=== PATIENT | female | born 1950 | race Caucasian/White ===

== ENCOUNTER → 2017-12-14 09:30 | Outpatient (CLI) | payer MEDICARE, OTHER, SELFPAY ==
[2017-12-14 10:37] LABS: AST(SGOT) 13 U/L (15-37); Alanine Aminotransfer ALT/SGPT 22 U/L (13-56); Albumin, Serum 3.5 g/dL (3.2-5.0); Alkaline Phosphatase 94 U/L (45-117); Anion Gap 7 (5-15); BUN 12 mg/dL (7-18); BUN/Creat Ratio 14.5 RATIO (10-20); Bilirubin, Direct 0.12 mg/dL (0.00-0.30); Calcium,Total 8.7 mg/dL (8.5-10.1); Chloride 107 mmol/L (98-107); Cholesterol 212 mg/dL (200); Creatinine, Serum 0.83 mg/dL (0.55-1.02); EST Glomerular Filtration Rate 73 mL/min (>60); Est Glom Filt Rate - Afr Amer 88 mL/min (>60); Glucose 94 mg/dL (74-106); High Density Lipoprotein 48 mg/dL; Potassium 4.3 mmol/L (3.5-5.1); Protein, Total 8.5 g/dL (6.4-8.2); Sodium Level 142 mmol/L (136-145); Thyroid Stim Hormone (TSH) 0.74 uIU/mL (0.358-3.74); Triglycerides 108 mg/dL; Very Low Density Lipoprotein 22 mg/dL (5-40)
== END ==
PROVIDERS: Family Provider Internal Medicine; PCP Internal Medicine; Visit Provider Physician Assistant Medical
DX: E78.5 Hyperlipidemia, unspecified (principal); Z79.899 Other long term (current) drug therapy; E03.9 Hypothyroidism, unspecified; R25.2 Cramp and spasm
CPT/HCPCS: 36415; 80048; 80061; 80076; 83735; 84443

== ENCOUNTER 2018-03-31 05:49 | Day surgery (SDC) | payer MEDICARE, OTHER, SELFPAY ==
--- NOTE | 2018-03-26 14:06 | EKG12_ITS ---
Test Reason : PRE OP Blood Pressure : / mmHG Vent. Rate : 082 BPM Atrial Rate : 082 BPM P-R Int : 174 ms QRS Dur : 060 ms QT Int : 378 ms P-R-T Axes : 061 022 024 degrees QTc Int : 441 ms Normal sinus rhythm Normal ECG Confirmed by TREASURE OVERTON, BALJIT ([id number]), supervising editor trailer FIDELINA BROWN ([id number]) on 03/28/2018 2:07:53 PM Referred By: Hubert Pena Confirmed By:BALJIT AMANDA MD
[2018-03-26 14:27] LABS: Hematocrit 38.5 % (37-47); Hemoglobin 12.9 g/dl (12.0-15.0); Mean Corp Hgb Conc 33.5 g/gl (32-36); Mean Corpuscular Hgb 29.2 pg (27.0-32.0); Mean Corpuscular Volume 87.1 fL (81-99); Mean Platelet Vol. 9.1 fl (6.2-12.0); Platelet Count 253 K/mm3 (150-450); RBC Distribution Width CV 13.1 % (11.6-14.6); RBC Distribution Width SD 40.8 fl (35.1-43.9); Red Blood Count 4.42 M/mm3 (4.2-5.4); Scan Indicated on CBC? Y/N NO; White Blood Count 4.2 K/mm3 (4.4-11.0)
[2018-03-26 14:36] LABS: International Normalized Ratio 1.1; Prothrombin Time (Protime)PT. 13.9 SECONDS (11.7-14.9)
[2018-03-26 14:37] LABS: Partial Thromboplast Time 25.2 Seconds (24.1-36.2)
[2018-03-26 15:02] LABS: ALB/GLOB Ratio 0.8 RATIO (0.9-2.4); AST(SGOT) 14 U/L (15-37); Alanine Aminotransfer ALT/SGPT 28 U/L (13-56); Albumin, Serum 3.5 g/dL (3.2-5.0); Alkaline Phosphatase 101 U/L (45-117); Anion Gap 4 (5-15); BUN 12 mg/dL (7-18); BUN/Creat Ratio 15.7 RATIO (10-20); Calcium,Total 8.7 mg/dL (8.5-10.1); Chloride 106 mmol/L (98-107); Creatinine, Serum 0.76 mg/dL (0.55-1.02); EST Glomerular Filtration Rate 80 mL/min (>60); Est Glom Filt Rate - Afr Amer 97 mL/min (>60); Globulin 4.6 g/dL (2.2-4.2); Glucose 116 mg/dL (74-106); Potassium 3.8 mmol/L (3.5-5.1); Protein, Total 8.1 g/dL (6.4-8.2); Sodium Level 142 mmol/L (136-145); Thyroid Stim Hormone (TSH) 0.91 uIU/mL (0.358-3.74)
--- NOTE | 2018-03-30 18:09 | PCM.HP.BLA ---
History and Physical Date of Admission: 03/31/18 Surgical History and Physical Ana Lilia Forrester, a 67 year old female 1 2 0 0 3, presents for A and P repair on March 31, 2018 at 7:30. -- Vaginal Prolapse -- pt is a 67 yo New Patient to the office. Pt is G-3 P-3 here today as a referral from TRISTAN Robles- due to prolapse. Pt states she had a hysterectomy / MMK back in 1989 . States for last 2 years she has had prolapse of bladder again that is progressively getting worse. States has a bulge in vaginal Pain and pressure in lower back. Prolapsed bladder which began 2 years ago. Ana Lilia claims it started progressively getting worse and has been present 2 years. It is located in the vagina. Ana Lilia characterizes it to be back. It is aggravated by walking on beach. Additional comments are: premarin cream holland and she stopped it 6-8 months ago. MEDICATIONS HISTORY: Current medications prescribed by our practice are: 1. estradiol 0.5 mg tablet, One half pill per vagina once a day qhs Patient is also takin. levothyroxine 125 mcg tablet, 1 PO QD 2. lorazepam 0.5 mg tablet, PRN 3. Nasonex 50 mcg/actuation Hammond, PRN 4. Nexium 20 mg capsule,delayed release, 1 PO QD 5. Norvasc 5 mg tablet, 1 PO QD 6. nystatin 100,000 unit/gram topical powder, PRN 7. Premarin 0.625 mg/gram vaginal cream, As Directed 8. Skelaxin 800 mg tablet, PRN 9. Toprol XL 25 mg tablet,extended release, 1 PO QD ALLERGIES: Ditropan, Rash, IVP Dye, Iodine Containing, Rash, Neoprene, Rash, Penicillins, Rash, Pravachol, Rash, Quinine, Rash, Vicoprofen, Rash, Vioxx, Rash, Zetia, Rash, Zocor, Rash, Vioxx, Heart failure, Vioxx and Rash Infections - Chicken pox Illnesses - thyroid disease, heart attack, high cholesterol, hypertension Accidents - None Hospitalizations - see surgery Review of Systems: GENERAL - Denies fever, or chills SKIN - Denies skin changes EYES - Denies visual changes EARS - Denies difficulty hearing NOSE - Denies nasal congestion or bleeding MOUTH - Denies sore throat or difficulty swallowing NECK - Denies pain or swelling RESPIRATORY - Denies shortness of breath or wheezing CARDIOVASCULAR - Denies palpitations or chest pain GASTROINTESTINAL - Denies nausea, vomiting, diarrhea, constipation GENITOURINARY - Denies dysuria, frequency of urination, incontinence of urine MUSCULOSKELETAL - Denies joint or muscle pain NEUROLOGICAL - Denies localized numbness or weakness PSYCHIATRIC - Denies depression or anxiety ENDOCRINE - Denies heat or cold intolerance, weight loss or gain HEMATO-IMMUNOLOGIC - Denies excesive bleeding with cuts SOCIAL HISTORY: Alcohol Use - denies drinking Smoking - denies smoking Diet - no special diet Lifestyle - moderate stress lifestyle and Exercise - active Seat Belt Use - always 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 11/11/1989 Hysterectomy ; Dr. Carias - 2. 11/11/1977 tuballigation ; - 3. foot surery ; - 4. knee surgery ; - 5. tonsillectomy ; - PHYSICAL EXAM BP- 132/84 Sitting, Right arm, regular cuff Weight- 200.10802 lbs Height- 64 inch BMI:34.40 CONSTITUTIONAL - NAD, well nourished, and well developed SKIN - No rash, lesions, or ulcers HEENT - Normocephalic, PERRLA, EOMI NECK - No nodes, no nuchal rigidity and thyroid normal size and texture LYMPH NODES - Palpation of lymph nodes in neck and groins within normal limits LUNGS - CTA x2 without wheezes, crackles or rales CARDIAC - Regular rate and rhythm without rubs, murmurs, or gallops ABDOMEN - Without hepatosplenomegaly, distention, masses, rebound, or guarding; normal bowel sounds; no hernias EXTREMITIES - No edema or calf tenderness NEUROLOGICAL - Cranial nerves II-XII grossly intact PSYCHIATRIC - A and O to time, place, person, mood and affect External Genitial Vagina - non-tender without lesions Urethra/Urethral Meatus - non-tender Bladder - non-tender Vagina - loss of rugae, large cystocele, mild rectocele and possible anterior enterocele Cervix - Prior hysterectomy-well healed vaginal cuff Uterus - prior hysterectomy-absent Adnexa - clear without massess or tenderness ASSESSMENT/PLAN: 1. Cystocele Midline and Enterocele Likely secondary to stopping intravaginal HRT. Discuss options for teatment of this very symptomatic problem and she declines pessary use. Will proceed with AP Repair. Discussed RBAs and all questions answered.
[2018-03-31] VITALS (11 sets, daily range): BP systolic 99–129; BP diastolic 53–74; PULSE 58–86; RESP 16–18; TEMP 35.9–37.2; O2SAT 93–100; BMI 33.2
--- NOTE | 2018-03-31 07:30 | VAGMU_PTH ---
PATIENT: NADER AGUILA LOC: [facility] [place] U#:[id number] AGE/SX: 67/F ROOM: RE03/31/[address]: Dr. Hubert Pena MD : 1950 BED: DIS: 04/01/2018 SPEC #: [id number] RECD: 03/31/18 10:29 STATUS: NURIA RAUL #: [id number] MARCO ANTONIO: 03/31/18 07:[address]: Hubert Pena DEPT: SURGICAL PATHOLOGY RECD BY: Reji Olmstead ENTERED: 03/31/18 12:44 SP TYPE: VAG MUCOSA OTHR DR: Dr. Joi Gonzalez MD Tissues: Vagina, NOS Procedures: Surgery Specimen Level III HEADER OPERATION: Anterior posterior repair PRE-OP DIAGNOSIS: Cystocele, enterocele TISSUE SUBMITTED: Vaginal mucosa MICROSCOPIC DIAGNOSIS Vaginal mucosa: Fragments of squamous mucosa, clinically anterior and posterior repair. SJ:heather 04/01/18 MICROSCOPIC DESCRIPTION Slides are reviewed. GROSS DESCRIPTION Received in fixative is one container labeled with the patient's name and designated vaginal mucosa. The specimen consists of five variable sized pieces of atkinson mucosal tissue that in aggregate measure 6 x 5 x 1 cm. No mucosal lesion is identified. Multiple instrumentation hughes are noted. Global Creative Chairman sections are submitted in one cassette. / SJ:rg 03/31/18 TC:5 CPT: 88682
--- NOTE | 2018-03-31 09:06 | PCM.OP.BLANK ---
Operative Report Date of Procedure: 03/31/18 Surgeon: Hubert Pena MD, FACOG Deportation Examiner: JONY López Anesthesia: Jann Weiner CRNA Type of anesthesia: General endotracheal Procedure: AP repair Findings: Cystocele and enterocele which protruded to the introitus. Rectocele which protruded to the introitus after anterior repair. Evidence of prior transvaginal tape placement. Indications: This is a 67-year-old patient who is been having problems with prolapse symptoms. Conservative measures have not been helpful. Given this the patient desires that we proceed the above procedure. She has been counseled regarding the risk and indications of this procedure including the possibility of bleeding, infection, and injury to surrounding structures such as bowel bladder. All questions were answered. Procedure: Patient was taken to the operating room where after induction of general anesthesia she was placed in the dorsal lithotomy position and prepped and draped in the usual sterile fashion. The bladder was drained of approximately 50 cc of clear yellow urine and Sanz catheter left in place. Anterior vaginal mucosa was undermined and divided and then imbricated toward the midline with interrupted 0 Vicryl sutures. Vaginal mucosa was trimmed and then closed with interrupted 2-0 chromic suture. Vaginal cuff was then closed side to side with interrupted [id number] 0 Vicryl suture. Hemostasis was noted. Attention was turned toward the posterior repair portion of the procedure. Remnants of the hymenal ring were grasped with Allises and a V-shaped incision was made in the perineum. Rectovaginal mucosa was then undermined divided and then imbricated toward the midline with interrupted 0 Vicryl suture. Vaginal mucosa was trimmed and then closed with running locked 2-0 chromic suture. Remnants of the bulbocavernosus muscles were identified and brought toward the midline with a single [id number]-[id number] 0 Vicryl suture and perineum was closed in the usual fashion with running and subcuticular, and voipls-tu-[id number] 2-0 chromic suture. Hemostasis was noted. Clear yellow urine was noted. Vagina was packed with iodoform tape. Patient tolerated the procedure well was taken to recovery room in satisfactory condition; sponge instrument and needle counts were all reportedly correct. Estimated blood loss for the case was less than 100 cc. Cefotan 2 g IV was given prior to beginning the operative procedure. There were no apparent complications of the surgery. Specimen to pathology was uterus and vaginal mucosa.
--- NOTE | 2018-03-31 09:10 | OP.PCM_ITS ---
Operative Report Date of Procedure: 03/31/18 Surgeon: Hubert Pena MD, FACOG Freelance Data Entry: JONY López Anesthesia: Jann Weiner CRNA Type of anesthesia: General endotracheal Procedure: AP repair Findings: Cystocele and enterocele which protruded to the introitus. Rectocele which protruded to the introitus after anterior repair. Evidence of prior transvaginal tape placement. Indications: This is a 67-year-old patient who is been having problems with prolapse symptoms. Conservative measures have not been helpful. Given this the patient desires that we proceed the above procedure. She has been counseled regarding the risk and indications of this procedure including the possibility of bleeding, infection, and injury to surrounding structures such as bowel bladder. All questions were answered. Procedure: Patient was taken to the operating room where after induction of general anesthesia she was placed in the dorsal lithotomy position and prepped and draped in the usual sterile fashion. The bladder was drained of approximately 50 cc of clear yellow urine and Sanz catheter left in place. Anterior vaginal mucosa was undermined and divided and then imbricated toward the midline with interrupted 0 Vicryl sutures. Vaginal mucosa was trimmed and then closed with interrupted 2-0 chromic suture. Vaginal cuff was then closed side to side with interrupted [id number] 0 Vicryl suture. Hemostasis was noted. Attention was turned toward the posterior repair portion of the procedure. Remnants of the hymenal ring were grasped with Allises and a V-shaped incision was made in the perineum. Rectovaginal mucosa was then undermined divided and then imbricated toward the midline with interrupted 0 Vicryl suture. Vaginal mucosa was trimmed and then closed with running locked 2-0 chromic suture. Remnants of the bulbocavernosus muscles were identified and brought toward the midline with a single lcarxq-qz-aasmm 0 Vicryl suture and perineum was closed in the usual fashion with running and subcuticular, and [id number]-[id number] 2-0 chromic suture. Hemostasis was noted. Clear yellow urine was noted. Vagina was packed with iodoform tape. Patient tolerated the procedure well was taken to recovery room in satisfactory condition; sponge instrument and needle counts were all reportedly correct. Estimated blood loss for the case was less than 100 cc. Cefotan 2 g IV was given prior to beginning the operative procedure. There were no apparent complications of the surgery. Specimen to pathology was uterus and vaginal mucosa.
--- NOTE | 2018-03-31 09:11 | PCM.DC.VHY ---
Discharge Diet: No Restrictions Discharge Activity: Return to Normal Activity, May Not Drive - while taking narcotic pain medications., May Shower, May Not Shower, May Take a Tub Bath May resume sexual activity in: 6-8 weeks Call your doctor if your incision/area has: Continuous Slow Oozing, Sudden Increased Bleeding, Increased Pain/ Swelling, Increased Redness, Foul Smelling Discharge Call your doctor if you observe: Fever of 101 or Higher, Inability to urinate, Inability to have a bowel movement, Using more than one pad per hour Allergies/Adverse Reactions: Allergies Iodinated Contrast- Oral and IV Dye [Iodinated Contrast Media - IV Dye] Allergy (Verified 12/26/17 14:52) Other Penicillins Allergy (Verified 12/26/17 14:52) Hives quinine Allergy (Verified 12/26/17 14:52) Other acetaminophen [From Vicodin] Adverse Reaction (Verified 12/26/17 14:52) Nausea/Vom/Diarrhea ezetimibe [From Zetia] Adverse Reaction (Verified 12/26/17 14:52) Other hydrocodone bitartrate [From Vicodin] Adverse Reaction (Verified 12/26/17 14:52) Nausea/Vom/Diarrhea oxybutynin chloride [From Ditropan] Adverse Reaction (Verified 12/26/17 14:52) Other pravastatin sodium [From Pravachol] Adverse Reaction (Verified 12/26/17 14:52) Pain in joints rofecoxib [From Vioxx] Adverse Reaction (Verified 12/26/17 14:52) Other simvastatin [From Zocor] Adverse Reaction (Verified 12/26/17 14:52) Other NEOPRENE Allergy (Uncoded 05/03/17 23:34) Rash statins Adverse Reaction (Severe, Uncoded 12/24/17 10:19) Muscle aches, increased CK benadryl Adverse Reaction (Intermediate, Uncoded 12/24/17 10:19) Anxious Medications to take at Discharge Amlodipine [Norvasc] 5 mg PO QHS 04/26/16 Aspirin [Aspirin, Baby] 81 mg PO QHS 04/26/16 Ergocalciferol [Vitamin D] 50,000 unit PO SUWE 04/26/16 Esomeprazole Mag Trihydrate [Nexium] 20 mg PO DAILY 04/26/16 Folic Acid 2 mg PO DAILY@0800 04/26/16 Levothyroxine Sodium [Levoxyl] 75 mcg PO 1200 04/26/16 Metoprolol(XL)Succ [Toprol Xl (Beta Joel)] 25 mg PO QHS 04/26/16 Mometasone Furoate [Nasonex] 2 spray NASAL DAILY PRN 04/26/16 Multivitamin [Daily Multiple Vitamin] 1 each PO DAILY 04/26/16 P-Ephed HCl/Fexofenadine HCl [Sangeetha-D 24 Hour Tablet] 1 tab.sr PO DAILY 04/26/16 colestipol 1 gram tablet 2 g PO BID #360 tab 03/18/18 Estradiol 0.5 mg VAGINAL QHS 03/26/18 Docusate Sodium [Colace] 100 mg PO BID PRN PRN #60 cap 03/31/18 Oxycodone [Oxyir] 5 mg PO Q6H PRN PRN 7 Days #10 tab 03/31/18 The following prescriptions were given: Oxycodone [Oxyir] 5 mg PO Q6H PRN PRN 7 Days #10 tab PRN Reason: Severe Pain (-08/20) Docusate Sodium [Colace] 100 mg PO BID PRN PRN #60 cap PRN Reason: Constipation Primary Care Physician: Joi Gonzalez MD [Primary Care Provider] - Please Follow Up With: Hubert Pena MD When: 2-3 weeks
[2018-03-31] MEDS: Ketorolac 15 MG/ML Vial IV (09:38)
[2018-03-31] MEDS: HYDROmorphone 0.5 MG/0.5 ML SYRINGE IV ×4 (10:50→23:29)
[2018-03-31] MEDS: Dextrose 5%-Lactated Ringers 1,000 ML 125 ML IV ×2 (10:50→18:33)
[2018-03-31] MEDS: Levothyroxine 75 MCG Tablet PO (12:32)
[2018-03-31] MEDS: Loratadine 10 MG Tablet PO (12:32)
[2018-03-31] MEDS: Acetaminophen 500 MG Tablet 1000 MG PO ×2 (14:04→21:31)
[2018-03-31] MEDS: Enoxaparin 30 MG/0.3 ML Syringe SC (18:24)
[2018-03-31] MEDS: Aspirin 81 MG TAB.CHEW PO (21:32)
[2018-03-31] MEDS: amLODIPine 5 MG Tablet PO (21:32)
[2018-03-31] MEDS: Estradiol 0.5 MG Tablet PO (21:33)
[2018-03-31] MEDS: Metoprolol(XL)Succ 25 MG Tablet PO (21:35)
[2018-04-01 01:50] VITALS: BP 135/69; PULSE 78; RESP 16; TEMP 36.9; O2SAT 97
[2018-04-01 05:58] LABS: Hematocrit 36.7 % (37-47); Hemoglobin 12.1 g/dl (12.0-15.0); Mean Corpuscular Hgb 28.3 pg (27.0-32.0); Mean Corpuscular Volume 85.9 fL (81-99); Platelet Count 231 K/mm3 (150-450); RBC Distribution Width CV 13.1 % (11.6-14.6); RBC Distribution Width SD 41.1 fl (35.1-43.9); Red Blood Count 4.27 M/mm3 (4.2-5.4); White Blood Count 6.8 K/mm3 (4.4-11.0)
[2018-04-01 06:01] LABS: Scan Indicated on CBC? Y/N NO
[2018-04-01] MEDS: Acetaminophen 500 MG Tablet 1000 MG PO (06:01)
[2018-04-01 06:10] LABS: Creatinine, Serum 0.62 mg/dL (0.55-1.02); EST Glomerular Filtration Rate 101 mL/min (>60); Est Glom Filt Rate - Afr Amer 122 mL/min (>60); Estimated Creatinine Clearance 49.12 ml/min
[2018-04-01 07:00] VITALS: RESP 18
[2018-04-01 07:46] VITALS: BP 123/55; PULSE 75; RESP 18; TEMP 36.9; O2SAT 97
[2018-04-01 08:42] VITALS: O2SAT 97
--- NOTE | 2018-04-01 08:48 | PCM.PN.OB ---
Subjective: Patient without complaints. Tolerating diet well. Positive flatus. Able to void on own. - Physical Exam Vital Signs AF, VSS Temp Pulse Resp BP Pulse Ox 98.5 F 75 18 123/55 H 97 04/01/18 07:46 04/01/18 07:46 04/01/18 07:46 04/01/18 07:46 04/01/18 08:42 Oxygen Flow Rate (L/min) 1 Oxygen Delivery Method Room Air Weight: 199 lb 8.293 oz Body Mass Index (BMI) 33.2 Intake and Output for Last 24 Hours 03/30/18 03/31/18 04/01/18 23:59 23:59 23:59 Intake Total 4050 / 4050 1191 / 1191 Output Total 1100 / 1100 850 / 850 Balance 2950 / 2950 341 / 341 Laboratory Tests Past 24 Hrs 04/01/18 04/01/18 05:20 05:20 WBC 6.8 RBC 4.27 Hgb 12.1 Hct 36.7 L MCV 85.9 MCH 28.3 MCHC 33.0 RDW 13.1 RDW Differential 41.1 Plt Count 231 MPV 9.0 Creatinine 0.62 Estim Creat Clear Calc 49.12 Est GFR (MDRD) Af Amer 122 Est GFR (MDRD) Non-Af 101 Vaginal pack out and minimal bleeding noted. Hemoglobin and creatinine okay. Medical Necessity - Tobacco Use Smoking Status: Never smoker Assessment/Plan Doing well. Will release to home with routine instructions.
[2018-04-01] MEDS: Pantoprazole Sodium 20 MG Tablet PO (08:58)
[2018-04-01 10:23] VITALS: BP 116/62; PULSE 81; RESP 16; TEMP 37.2; O2SAT 98
== END 2018-04-01 10:35 | disposition home or self-care (01) ==
LOC: SDC 05:50 → AC 05:51 → MS2 10:10
PROVIDERS: Family Provider Internal Medicine; PCP Internal Medicine; Visit Provider Obstetrics & Gynecology
PROC: (CPT 57260; principal; 2018-03-31 07:15)
DX: N81.3 Complete uterovaginal prolapse (principal); I25.10 Atherosclerotic heart disease of native coronary artery without angina pectoris; I25.2 Old myocardial infarction; I10 Essential (primary) hypertension; E78.00 Pure hypercholesterolemia, unspecified; G47.30 Sleep apnea, unspecified; K21.9 Gastro-esophageal reflux disease without esophagitis; K58.9 Irritable bowel syndrome, unspecified; F32.9 Major depressive disorder, single episode, unspecified; F41.9 Anxiety disorder, unspecified; E06.9 Thyroiditis, unspecified; Z90.710 Acquired absence of both cervix and uterus; Z86.718 Personal history of other venous thrombosis and embolism; Z79.01 Long term (current) use of anticoagulants; Z79.82 Long term (current) use of aspirin; Z79.899 Other long term (current) drug therapy
CPT/HCPCS: 00942; 57260; 36415; 80053; 82565; 84443; 85027; 85610; 85730; 86850; 86900; 88304; 93005; J7120

== ENCOUNTER → 2018-04-30 10:07 | Outpatient (CLI) | payer MEDICARE, OTHER, SELFPAY ==
[2018-04-30 10:37] LABS: Absolute Lymphocyte Count 1.42 X10^3/ul (0.83-4.51); Absolute Neutrophil Count 2.4 X10^3/uL (2.0-7.7); Basophil# 0.03 X10^3/uL; Basophil% 0.6 % (0-1); Eosinophil# 0.18 X10^3/uL; Eosinophils% 3.9 % (0-5); Hemoglobin 12.8 g/dl (12.0-15.0); Lymphocyte # 1.42 X10^3/ul (4.0); Lymphocyte % 30.6 % (19-41); Mean Corp Hgb Conc 32.8 g/gl (32-36); Mean Corpuscular Hgb 28.3 pg (27.0-32.0); Mean Corpuscular Volume 86.3 fL (81-99); Monocyte# 0.58 X10^3/uL; Monocyte% 12.5 % (0-10); Neutrophil # 2.42 X10^3/uL (2.7-7.7); Neutrophil % 52.2 % (47-70); Platelet Count 230 K/mm3 (150-450); RBC Distribution Width CV 13.4 % (11.6-14.6); RBC Distribution Width SD 41.9 fl (35.1-43.9); Red Blood Count 4.52 M/mm3 (4.2-5.4); White Blood Count 4.6 K/mm3 (4.4-11.0)
[2018-04-30 10:38] LABS: Erythrocyte Sedimentation Rate 9 mm/hr (0-30); POSITIVE COUNT NO; POSITIVE DIFFERENTIAL NO; POSITIVE MORPHOLOGY NO
[2018-04-30 10:56] LABS: CRP 8.11 mg/L (0.0-3.0)
== END ==
PROVIDERS: Family Provider Internal Medicine; PCP Internal Medicine; Visit Provider Orthopaedic Surgery
DX: M71.21 Synovial cyst of popliteal space [Baker], right knee (principal); Z79.899 Other long term (current) drug therapy
CPT/HCPCS: 36415; 85025; 85652; 86140

== ENCOUNTER 2018-06-04 11:36 | Inpatient (IN) | payer MEDICARE, OTHER, SELFPAY ==
[2018-05-23 11:43] VITALS: BP 122/73; PULSE 84; RESP 16; TEMP 37.6; O2SAT 95; BMI 34.1
[2018-05-23 13:41] LABS: Absolute Lymphocyte Count 1.58 X10^3/ul (0.83-4.51); Absolute Neutrophil Count 2.7 X10^3/uL (2.0-7.7); Basophil# 0.02 X10^3/uL; Basophil% 0.4 % (0-1); Eosinophil# 0.15 X10^3/uL; Hematocrit 40.1 % (37-47); Hemoglobin 13.1 g/dl (12.0-15.0); Lymphocyte # 1.58 X10^3/ul (4.0); Lymphocyte % 31.9 % (19-41); Mean Corp Hgb Conc 32.7 g/gl (32-36); Mean Corpuscular Hgb 28.4 pg (27.0-32.0); Mean Corpuscular Volume 86.8 fL (81-99); Mean Platelet Vol. 9.7 fl (6.2-12.0); Monocyte# 0.54 X10^3/uL; Monocyte% 10.9 % (0-10); Neutrophil # 2.67 X10^3/uL (2.7-7.7); Neutrophil % 53.8 % (47-70); Platelet Count 262 K/mm3 (150-450); RBC Distribution Width CV 13.1 % (11.6-14.6); RBC Distribution Width SD 41.6 fl (35.1-43.9); Red Blood Count 4.62 M/mm3 (4.2-5.4)
[2018-05-23 13:45] LABS: POSITIVE COUNT NO; POSITIVE DIFFERENTIAL NO; POSITIVE MORPHOLOGY NO
[2018-05-23 14:09] LABS: Anion Gap 7 (5-15); BUN 11 mg/dL (7-18); BUN/Creat Ratio 15.3 RATIO (10-20); Calcium,Total 8.8 mg/dL (8.5-10.1); Chloride 102 mmol/L (98-107); Creatinine, Serum 0.72 mg/dL (0.55-1.02); EST Glomerular Filtration Rate 86 mL/min (>60); Est Glom Filt Rate - Afr Amer 104 mL/min (>60); Estimated Creatinine Clearance 47.14 ml/min; Glucose 99 mg/dL (74-106); Potassium 3.9 mmol/L (3.5-5.1); Sodium Level 139 mmol/L (136-145)
--- NOTE | 2018-05-25 07:29 | PCM.HP.BLA ---
History and Physical DATE OF SURGERY: 06/04/2018 SCHEDULED PROCEDURE: right total knee arthroplasty patellar button exchange and poly exchange HISTORY OF PRESENT ILLNESS: This is a 67-year-old female who has been having ongoing pain in her right knee for several years. Patient underwent a previous right total knee arthroplasty in 2009 followed by a second surgery in [address] Riley Rios. Patient states her pain is constant, aching, sharp, sore, and tight. She has increased pain going up and down stairs and sitting for extended periods of time. Patient states her activities of daily living have been affected and she does not walk as much as she used to. She has tried conservative measures consisting of rest, ice, heat, elevation, physical therapy and home exercises with minimal relief. Patient does complain of instability. Patient has a medical history pertinent for previous heart attack as well as history of blood clots in the right leg. 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 Lab work was obtained to rule out infection by Dr. Riley Rios. Patient currently denies any chest pain, shortness of breath, fevers chills, or recent infections. Surgical clearance has been obtained by er medical technician Dr. Palacios. After discussion with Dr. Ronaldo Harrington, the patient would like to proceed with a right total knee arthroplasty with patella button exchange and polyethylene exchange. REVIEW OF SYSTEMS: ROS: Const: Denies anorexia, change in appetite, fever, hard of hearing, vision problems and weight change. CV: Reports heart murmur, but denies chest pain, irregular heartbeat and peripheral vascular disease. Resp: Reports sleep apnea, but denies asthma, cough, pneumonia, SOB, tuberculosis and wheezing. GI: Reports heartburn, but denies constipation, diarrhea, difficulty swallowing, nausea, bloody stools and vomiting. : Genital:. (F Genital Sx) Urinary: denies incontinence. Musculo: Reports leg swelling, but denies limp, trouble walking and weakness. Skin: Reports history of shingles, but denies Raynaud's and tattoo. Neuro: Denies ambulatory dysfunction, dizziness, numbness/tingling and tremor. Psych: Reports anxiety, but denies depression, insomnia, mental illness and stress. Lamonte/Lymph: Denies anemia, bleeding/bruising tendency and past transfusion. Reviewed and updated. PAST MEDICAL HISTORY: Advance Care Plan: Other Directive, LIVING WILL Effective Date: 06/27/2015 Comments: BETO AGUILA - SON TAMMY GOETZ - DAUGHTER Other Directive, POA Effective Date: 06/27/2015 PMH: Medical Problems: Arthritis, Heart Attack, Thyroid Disease Accidents: Fracture - Rt. hand AND LEFT RIBS PINKY FX Surgical Hx: RT Hammer Toe - (10/2010) BROWN Hysterectomy - 1990 [place], [place] Tonsillectomy - 1951? [place], [place] Tubal Ligation - 1978 [place], [place] Arthroscopy - L knee [facility] 1987 lateral menisectomy [address] Person 1991 Carpal Tunnel - RIGHT CTR DR PERSON @[place], [place] RT TKR - (05/02/2010) NATACHA @ [facility] LT Wrist Dequervains Release - (06/19/2012) JWNeena @ [facility] RT Knee - (07/07/2015) [email or web address] RT Index Finger Cyst Removed - (03/01/2016) JWG @ [facility] Bladder Repair & Sling - (2017) Anesthesia Complications: Nausea Assistive Devices: Glasses Reviewed, no changes. 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 Personal Habits: Cigarette Use: Never.Alcohol: Denies use.Drug Use: Denies Use.Enjoy Exercising: Daily. Reviewed and updated. VITALS: Ht: 64 Wt: 199lb Wt k.266 BMI: 34.2 BP: 118/80 Pulse: 78 Resp: 18 T: 99.0 T: 37.2C ALLERGIES: Penicillin Quinidine Sulfate Ivpdye Vioxx Pravachol Neoprene Quinine Vicodin Zocor - Zetia Ditropan Statins Etodolac - Heart Racing Naprosyn - Heart Racing Zetia - Intolerancemyositis Anti-Inflammatories MEDICATIONS: Vitamin D 50,000 Units 1 cap PO twice weekly, Folic Acid 1 mg 2 tabs PO qday, Levoxyl 125 mcg 1/2 tab PO q day, Multivitamins 1 tab q day, Nasonex 50 mcg/Act 2 sprays in each nostril daily, Norvasc 5 mg one tab daily, Colestipol HCL 1 gm 2 PO bid, Vitamin B-12 1000 mcg 1 tab PO daily, Fish Oil 1000 mg 1 cap PO daily, Skelaxin 800 mg 1 by mouth twice a day PRN, Coenzyme Q-10 200 mg one PO bid, Aspirin 81 mg 1 by mouth every day, Nexium 24HR 20 mg 1 cap PO daily, Estradiol 0.5 mg use one tablet vaginally once daily AT bedtime, Metoprolol Succinate ER 25 mg take one tablet by mouth daily PRE-OP EXAM: General appearance:NORMAL Other: Eyes: Conjunctivae and lids: NORMAL Pupils: ERR Ears, Nose, Mouth, and Throat: NORMAL Other: Inspection of lips, teeth and gums: NORMAL Other: Neck: Examination of neck: no masses noted. Respiratory: Assessment of respiratory effort: NORMAL Other: Auscultation of lungs: clear to auscultation no wheezes, rhonchi or rales. Cardiovascular: Auscultation of heart: regular rate and rhythm, no murmurs, gallops or rubs. Exam of carotid arteries: NORMAL Other: Gastrointestinal: Exam of abdomen: soft, nontender, nondistended bowel sounds present. PHYSICAL EXAMINATION: Patient walks with a limping gait. Patient has tenderness to palpation around the proximal pole patella as well as pes anserine. Range of motion of the right knee is 0 of extension to 90 of flexion. There is minimal translation with anterior drawer testing. 2 mm opening laterally and the 30 of flexion. IMAGING STUDIES: 1. Previous x-rays show a well aligned press-fit total knee arthroplasty which is well fixed and in good position. The patella is somewhat thick but tracks well. 2. MRI shows large effusion with Alfaro's cyst and posterior knee effusion. There is synovitis noted with intra-articular bodies. IMPRESSION: 1. Painful right total knee arthroplasty 2. History of heart attack 3. History of blood clots 4. Thyroid disease PLAN: Dr. Harrington did discuss and review with the patient all treatment options including surgical versus nonsurgical options. Patient does wish to proceed with the above-stated procedure. Potential risks, benefits, and complications of the procedure were discussed in detail including but not limited to , infection, nerve and blood vessel damage, persistent pain, numbness, tingling, paresthesias, blood clot, pulmonary embolism, and requirement for possible further surgery. The patient expressed full understanding and has no further questions for the doctor. Patient does agree to proceed with the above-stated procedure and has signed the surgery consent form. ___ I have re-examined the patient. There are no clinical changes since date of exam. ___ See progress notes for changes. ___ Dictated on admission Date: Time: Signature:
--- NOTE | 2018-05-30 13:41 | CASEMGMT ---
RN CM Preop call. Call to home, no answer. Luly MOOREN RN ACM
[2018-06-04] VITALS (12 sets, daily range): BP systolic 124–136; BP diastolic 58–74; PULSE 62–101; RESP 16–18; TEMP 36.6–37.6; O2SAT 92–99; BMI 34.1; BMI 33.5
[2018-06-04] MEDS: Acetaminophen 500 MG Tablet 1000 MG PO ×2 (12:08→21:04)
--- NOTE | 2018-06-04 13:01 | OP.PCM_ITS ---
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 gyroscopic instrument tester: Chuck Shaffer Type of Anesthesia:: Spinal Anesthesiologist: Jai Pena Special Medications: 600 mg Cleocin, 1 g TXA at incision, 1 g TXA closure, 10 mg Decadron, joint cocktail (5 mg Duramorph, 30 mL of 0.5% Ropivicaine, 1000 units of epinephrine, 30 mg of Toradol) Specimen's removed: 3 Separate specimens were sent to microbiology Estimated Blood Loss (mL): 25 Fluids Replaced: 1000 milliters crystalloid Description of Procedure: Procedure: On the date of procedure patient's right lower extremity was marked in the preoperative area. The patient was then taken back to the operating room where the patient was placed on the table in the supine position. All bony prominences were identified a well-padded. Anesthesia assumed control of the C- spine and airway and remained controlled throughout the remainder of the procedure. A tourniquet was placed on the right upper thigh and the leg was prepped in a sterile fashion. The surgeon then scrubbed at this time. Upon reentering the room the right lower extremity was draped in a standard orthopedic fashion. A timeout was then called and everyone agreed upon the side , the site, the procedure to be performed, patient's identity and antibiotics given. Esmarch bandage was used to exsanguinate the extremity and the tourniquet was placed up to 250 mmHg with the knee in flexion. A midline skin incision was made and sharp dissection was taken down through skin subcutaneous tissue and fat. The standard medial parapatellar incision was made and the patella was subluxed laterally. The standard deep MCL release was done and a complete synovectomy was performed. We performed a synovectomy starting with the medial gutter followed by suprapatellar pouch and lateral gutter. Re-creating the spaces. Synovium from the suprapatellar pouch was sent for culture. Knee was then flexed up and synovium from the ACL membrane was sent for culture. Osteotome was used to remove the polyethylene component and membrane from behind the polyethylene was sent for culture. Knee was then placed in extension and we were able to examine the patella. The patella had a large lateral facet osteophyte and superior osteophyte appeared almost to be like an inset patella with a symmetric polyethylene. Based on this and the crepitus with range of motion the patient had we decided to proceed with patella revision. Saw was used to cut the patella off the bone cement interface. Bur was used to remove the cement from the previous peg holes. Wound was then copiously reviewed out with 6 L of normal saline under low-pressure lavage. We then sized the new patella to size 3, 8 mm. New lug holes were drilled. Tourniquet was let down and at this time the wound was copiously irrigated out with normal saline and dried. Cement was mixed. Final components were verified and opened, and cement was mixed in a vacuum. [employer] Simplex cement was used. The wound was copiously irrigated with normal saline. Polyethylene components were trialed and the 13 mm congruent polyethylene was selected When the cement was ready the the final polyethylene was impacted into place and the patella was cemented into place. The knee was placed in full extension. All excess cement was removed in the process. Once the cement had cured the tracking, alignment and balance were verified. Once the final components were placed the wound was copiously irrigated with normal saline solution and the periarticular injection was given. The wound was closed in a layer chaney fashion using #1 vicryl interrupted sutures for the arthrotomy, 2-0 interrupted Vicryl suture for the subcuticular layer and uyen for final skin closure. A sterile compressive dressing was then placed. The patient was then awakened from anesthesia, transferred to the [facility] and transferred to the PACU for recovery. Post op plan DVT ppx: Xarelto due to previous DVT, thigh high compression stockings Follow up: in office in 2 weeks for wound check PT: to start POD #0 at hospital, outpatient PT should be arranged. My physician emergency veterinary assistant was a vital part of this case. He was important in appropriate retraction during the case, and protection of soft tissues during bony cuts. His intimate knowledge of the case and my steps aided in safe and expedient completion of the procedure as well as appropriate position of the leg during the case. He was also vital in assisting with closure under my direct supervision. Grafts/Implants Used: Latesha congruent 13 mm polyethylene, size 3, 8 mm patella - Complications none - Admit VTE Documentation VTE Present on Admission: No VTE Mechan Device Prophylaxis: SCD's, Thigh High MARYLOU Hose VTE Pharm Prophylaxis ordered?: Yes
[2018-06-04] MEDS: Lactated Ringers 1,000 ML 999 ML IV (14:56)
--- NOTE | 2018-06-04 15:02 | RAD_ITS ---
STUDY: X-RAY - RIGHT KNEE REASON FOR EXAM: Female, 67 years old. Postop from replacement surgery TECHNIQUE: 2 view(s) of the knee. COMPARISON: None. FINDINGS: Patient is status post right knee replacement surgery. Components demonstrate anatomic alignment. There is no plain film evidence of postoperative complication. Normal postoperative soft tissue swelling and subcutaneous emphysema noted. RAD/Knee 1 or 2 Views IMPRESSION: Replaced right knee joint demonstrates anatomic alignment. No plain film evidence of postoperative complication Electronically Signed: Cali Amaro MD at 15:16 EDT , Service support ,
[2018-06-04] MEDS: Lactated Ringers 1,000 ML 125 ML IV (15:54)
[2018-06-04] MEDS: Morphine 2 MG/ML Syringe IV ×3 (16:36→20:54)
[2018-06-04] MEDS: proMETHazine 25 MG/ML Syringe 12.5 MG IM (17:37)
[2018-06-04] MEDS: Metoprolol(XL)Succ 25 MG Tablet PO (21:04)
[2018-06-04] MEDS: Estradiol 0.5 MG Tablet PO (21:04)
[2018-06-04] MEDS: amLODIPine 5 MG Tablet PO (21:04)
[2018-06-04] MEDS: Senna/Docusate Sodium 1 Tablet 2 TABLET PO (21:04)
[2018-06-04] MEDS: Aspirin 81 MG TAB.CHEW PO (21:05)
[2018-06-05] MEDS: Lactated Ringers 1,000 ML 125 ML IV ×2 (00:06→00:45)
--- NOTE | 2018-06-05 01:00 | NURSING ---
pt to have family bring in her home medications: metaxalone and Colestid
[2018-06-05 02:32] VITALS: BP 126/63; PULSE 88; RESP 18; TEMP 37.2; O2SAT 94
[2018-06-05] MEDS: Morphine 2 MG/ML Syringe IV ×2 (02:38→13:46)
[2018-06-05] MEDS: 0.9% NaCl Peripheral Flush Adult/Peds IV ×2 (02:39→13:47)
[2018-06-05] MEDS: Rivaroxaban 10 MG Tablet PO (05:37)
[2018-06-05] MEDS: Acetaminophen 500 MG Tablet 1000 MG PO ×3 (05:38→21:42)
[2018-06-05 05:50] LABS: Hematocrit 36.9 % (37-47); Hemoglobin 12.3 g/dl (12.0-15.0); Mean Corp Hgb Conc 33.3 g/gl (32-36); Mean Corpuscular Hgb 28.7 pg (27.0-32.0); Mean Platelet Vol. 9.1 fl (6.2-12.0); Platelet Count 222 K/mm3 (150-450); RBC Distribution Width CV 12.8 % (11.6-14.6); RBC Distribution Width SD 39.4 fl (35.1-43.9); Red Blood Count 4.29 M/mm3 (4.2-5.4); White Blood Count 5.7 K/mm3 (4.4-11.0)
[2018-06-05 06:09] LABS: Anion Gap 6 (5-15); BUN 6 mg/dL (7-18); BUN/Creat Ratio 10.4 RATIO (10-20); Calcium,Total 8.3 mg/dL (8.5-10.1); Chloride 99 mmol/L (98-107); Creatinine, Serum 0.58 mg/dL (0.55-1.02); EST Glomerular Filtration Rate 111 mL/min (>60); Est Glom Filt Rate - Afr Amer 134 mL/min (>60); Estimated Creatinine Clearance 47.14 ml/min; Glucose 109 mg/dL (74-106); Potassium 3.9 mmol/L (3.5-5.1); Scan Indicated on CBC? Y/N NO; Sodium Level 137 mmol/L (136-145)
--- NOTE | 2018-06-05 06:13 | PN_ITS ---
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 The third knee replacement of her right knee was done on . Medicine team was consulted for management of her general medical conditions. This morning, while, patient complains of pain in her right knee she denies any other medical condition at this time. Notably she denies any cardiopulmonary symptoms of chest pain/chest pressure or shortness of breath. Vitals/I&O's: Vital Signs Temp Pulse Resp BP Pulse Ox 98.9 F 88 18 126/63 H 94 06/05/18 02:32 06/05/18 02:32 06/05/18 02:32 06/05/18 02:32 06/05/18 02:32 Oxygen Delivery Method Room Air Weight: 90.2 kg Body Mass Index (BMI) 33.5 Intake and Output for Last 24 Hours 06/03/18 06/04/18 06/05/18 23:59 23:59 23:59 Intake Total 2423 / 2423 1652 / 1652 Output Total 300 / 300 1500 / 1500 Balance 2123 / 212 152 / 152 General: Alert, Oriented x3, Cooperative HEENT: Atraumatic, PERRLA, EOMI, Normocephalic Neck: Supple, No JVD, Negative Carotid Bruits Lungs: Rales - Mild Cardiovascular: Regular rate, No murmurs Abdomen: Bowel Sounds Present, Soft, Non Tender Extremities: No edema, Capillary Refill Less than 3 Seconds Skin: No rashes, No breakdown Musculoskeletal: Tenderness - Right knee. Reduced range of motion of right knee Lymphatic: No Cervical, Supraclavicular, or Inguinal Adenopathy Neurological: Cranial nerves II-XII grossly intact Psych/Mental Status: Normal Affect, Appropriate Laboratory Results 06/05/18 05:20: WBC 5.7, RBC 4.29, Hgb 12.3, Hct 36.9 L, MCV 86.0, MCH 28.7, MCHC 33.3, RDW 12.8, RDW Differential 39.4, Plt Count 222, MPV 9.1 06/05/18 05:20: Sodium 137, Potassium 3.9, Chloride 99, Carbon Dioxide 32.0, Anion Gap 6, BUN 6 L, Creatinine 0.58, Estim Creat Clear Calc 47.14, Est GFR ( MDRD) Af Amer 134, Est GFR (MDRD) Non-Af 111, BUN/Creatinine Ratio 10.4, Glucose 109 H, Calcium 8.3 L Current Medications Acetaminophen (Tylenol) 1,000 mg PO Q8 [facility] Last Admin: 06/05/18 05:38 Dose: 1,000 mg Amlodipine Besylate (Norvasc) 5 mg PO QHS [facility] Last Admin: 06/04/18 21:04 Dose: 5 mg Aspirin (Aspirin, Baby) 81 mg PO QHS [facility] Last Admin: 06/04/18 21:05 Dose: 81 mg Colestipol HCl (Colestid Tablet) 2 gm PO BID [facility] Cyanocobalamin (Vitamin B12) 1,000 mcg PO DAILY [facility] Ergocalciferol (Vitamin D) 50,000 unit PO SUWE [facility] Estradiol (Estradiol) 0.5 mg PO QHS [facility] Last Admin: 06/04/18 21:04 Dose: 0.5 mg Famotidine (Pepcid) 20 mg PO DAILY [facility] Fluticasone Propionate (Flonase Nasal [place]) 2 spray NASAL DAILY PRN PRN Reason: CONGESTION Folic Acid (Folic Acid) 2 mg PO DAILY@0800 [facility] Lactated Ringer's () 1,000 mls @ 125 mls/hr IV .Q8H [facility] Last Admin: 06/05/18 00:45 Dose: 125 mls/hr Clindamycin Phosphate 600 mg/ (Dextrose) 54 mls @ 108 mls/hr IV Q8H [facility] Stop: 06/05/18 06:29 Last Admin: 06/05/18 05:38 Dose: 108 mls/hr Levothyroxine Sodium (Synthroid) 62.5 mcg PO DAILY@1200 [facility] Loratadine (Claritin) 10 mg PO DAILY [facility] Metaxalone (Skelaxin) 800 mg PO PRN PRN PRN Reason: PAIN Metoprolol Succinate (Toprol Xl (Beta Joel)) 25 mg PO QHS [facility] Last Admin: 06/04/18 21:04 Dose: 25 mg Morphine Sulfate () 2 - 4 mg IV Q2H PRN PRN PRN Reason: SEVERE PAIN (6-10/10) Last Admin: 06/05/18 02:38 Dose: 2 mg Morphine Sulfate () 2 - 4 mg IV Q2H PRN PRN PRN Reason: SEVERE PAIN (6-10/10) Multivitamins (Multivitamin) 1 tablet PO DAILY@0800 [facility] Nutritional Formula (Lactose Free) (Ensure Clear) 120 ml PO TIDCM [facility] Last Admin: 06/04/18 17:56 Dose: Not Given Ondansetron HCl (Zofran) 4 mg IV Q8H PRN PRN PRN Reason: NAUSEA Pantoprazole Sodium (Protonix) 20 mg PO DAILY [facility] Promethazine HCl (Phenergan) 12.5 mg IM Q6H PRN PRN; Protocol PRN Reason: NAUSEA/VOMITING Last Admin: 06/04/18 17:37 Dose: 12.5 mg Pseudoephedrine HCl (Sudafed) 60 mg PO 4X/DAY [facility] Last Admin: 06/04/18 22:46 Dose: Not Given Rivaroxaban (Xarelto) 10 mg PO DAILY@0600 [facility] Last Admin: 06/05/18 05:37 Dose: 10 mg Senna/Docusate Sodium (Senokot-S, Lolly-Colace) 2 tablet PO BID [facility] Last Admin: 06/04/18 21:04 Dose: 2 tablet Sodium Chloride () 5 - 30 ml IV UD PRN PRN Reason: SALINE FLUSH Last Admin: 06/05/18 02:39 Dose: 10 ml Tramadol HCl (Ultram) 50 mg PO TID PRN PRN PRN Reason: MODERATE PAIN (4-5/10) Medical Necessity - Tobacco Use Smoking Status: Never smoker Assessment/Plan All Active Problems (Last Reviewed 12/26/17 @ 15:00 by Graham Palacios MD) Chest pressure (Acute) The patient is a 67-year-old female with a significant history of CAD, hypertension, hypothyroidism, GERD, prior DVT in bilateral legs, 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 History of CAD Aspirin and metoprolol succinate continued. Colestipol continued. Patient reports increased cramps with statin Hypertension Amlodipine and metoprolol succinate continued. GERD On home Nexium Therapeutic interchange with Pepcid at the hospital. Hypothyroidism Synthroid continued Allergies Patient takes intranasal corticosteroids and allergy shots weekly. Loratadine and Sudafed continued DVT prophylaxis Reports history of right leg DVT after previous surgery and supposedly unprovoked DVT in left leg many years ago Agree with present orders of Charu and MARYLOU arana. Vitamin B12, vitamin D, folic acid and estradiol. Thank you for allowing us to participate in the care of Ms. Jo-Ann Forrester. We will continue to follow. Code Visit Inpatient E&M: 89917 Subs Hosp L2
[2018-06-05 09:19] VITALS: BP 116/69; PULSE 85; RESP 18; TEMP 37.3; O2SAT 93
[2018-06-05] MEDS: Multivitamins,Therapeutic Tablet 1 TABLET PO (09:25)
[2018-06-05] MEDS: Folic Acid 1 MG Tablet 2 MG PO (09:25)
[2018-06-05] MEDS: Famotidine 20 MG Tablet PO (09:28)
[2018-06-05] MEDS: Senna/Docusate Sodium 1 Tablet 2 TABLET PO ×2 (09:29→21:43)
[2018-06-05] MEDS: Pantoprazole Sodium 20 MG Tablet PO (09:29)
[2018-06-05] MEDS: Cyanocobalamin 500 MCG Tablet 1000 MCG PO (09:30)
[2018-06-05] MEDS: Loratadine 10 MG Tablet PO (09:34)
[2018-06-05] MEDS: traMADol 50 MG Tablet PO ×2 (09:34→18:14)
--- NOTE | 2018-06-05 10:07 | PN.ORTHO_ITS ---
Subjective: The patient was sitting in bed upon examination. Patient denies any chest pain , shortness of breath, dizziness, lightheadedness, nausea or vomiting, or calf pain. Pain is controlled on medications. Patient does report pain in the right knee but medications are helpful. No adverse overnight events. Patient with history of previous blood clot and is currently on Xarelto for DVT prophylaxis. Objective: Vital signs stable and afebrile. Patient is able to plantarflex and dorsiflex actively. Sensation is intact to light touch to saphenous, sural, superficial and deep peroneal, and tibial distribution. Dressing is with minimal drainage over the distal incision Negative Homans bilaterally, negative signs and symptoms of DVT. - Physical Exam General: Alert, Oriented x3, Cooperative, No apparent distress Vital Signs Temp Pulse Resp BP Pulse Ox 99.2 F H 85 18 116/69 93 06/05/18 09:19 06/05/18 09:19 06/05/18 09:19 06/05/18 09:19 06/05/18 09:19 Oxygen Delivery Method Room Air Weight: 90.2 kg Body Mass Index (BMI) 33.5 Intake and Output for Last 24 Hours 06/03/18 06/04/18 06/05/18 23:59 23:59 23:59 Intake Total 2423 / 2423 1652 / 1652 Output Total 300 / 300 1500 / 1500 Balance 2123 / 2123 152 / 152 Laboratory Tests Past 24 Hrs 06/05/18 06/05/18 05:20 05:20 WBC 5.7 RBC 4.29 Hgb 12.3 Hct 36.9 L MCV 86.0 MCH 28.7 MCHC 33.3 RDW 12.8 RDW Differential 39.4 Plt Count 222 MPV 9.1 Sodium 137 Potassium 3.9 Chloride 99 Carbon Dioxide 32.0 Anion Gap 6 BUN 6 L Creatinine 0.58 Estim Creat Clear Calc 47.14 Est GFR (MDRD) Af Amer 134 Est GFR (MDRD) Non-Af 111 BUN/Creatinine Ratio 10.4 Glucose 109 H Calcium 8.3 L Medical Necessity - Tobacco Use Smoking Status: Never smoker Assessment/Plan All Active Problems (Last Reviewed 12/26/17 @ 15:00 by Graham Palacios MD) Chest pressure (Acute) 1. S/P revision right total knee replacement polyethylene exchange and patella revision POD #1 2. Continue Pain Medications: Tylenol and tramadol 3. DVT Prophylaxis: Xarelto ?2 weeks 4. PT/OT: Weightbearing as tolerated 5. H & H: 12.3/36.9, asymptomatic 6. Encouraged Incentive Spirometry 7. Continue postoperative medical management per medicine 8. Disposition: Plan will be for possible discharge home this afternoon if patient tolerates physical therapy and pain is controlled on medications. Prescriptions will be attached to chart. Patient will follow-up per [facility] postop instructions..
--- NOTE | 2018-06-05 10:14 | PCM.DC.TKR ---
Discharge Diet: No Restrictions Discharge Activity: May Not Drive May shower in (days): 1 - Turned dressing away from water Ice area for (Minutes): 20 - every hour while awake. Weight Bearing Status: Weight bearing as tolerated Elevate: Operative Extremity Additional Activity Instructions:: Wear elastic stockings for 2 weeks after your surgery. Call your doctor if your incision/area has: Continuous Slow Oozing, Sudden Increased Bleeding, Increased Pain/ Swelling, Increased Redness, Foul Smelling Discharge Call your doctor if you observe: Fever of 101 or Higher, Coldness, Increased Pain, Numbness or Tingling, Change in Color, Calf discomfort, Uncontrolled pain Remove Dressing in (days):: 4 - Okay to remove dressing on June 09, 2018 Additional Instructions: Follow [facility] postop instructions Allergies/Adverse Reactions: Allergies etodolac Allergy (Verified 05/23/18 11:24) Other Iodinated Contrast- Oral and IV Dye [Iodinated Contrast Media - IV Dye] Allergy (Verified 05/23/18 11:24) Hives naproxen [From Naprosyn] Allergy (Verified 05/23/18:24) Other Penicillins Allergy (Verified 05/23/18 11:24) Hives quinine Allergy (Verified 05/23/18 11:24) nausea/vomiting/diarrhea acetaminophen [From Vicodin] Adverse Reaction (Verified 05/23/18:24) Nausea/Vom/Diarrhea ezetimibe [From Zetia] Adverse Reaction (Verified 05/23/18 11:24) nausea/vomiting/diarrhea hydrocodone bitartrate [From Vicodin] Adverse Reaction (Verified 05/23/18 11:24) Nausea/Vom/Diarrhea oxybutynin chloride [From Ditropan] Adverse Reaction (Verified 05/23/18 11:24) nausea/vomiting/diarrhea pravastatin sodium [From Pravachol] Adverse Reaction (Verified 05/23/18 11:24) Pain in joints rofecoxib [From Vioxx] Adverse Reaction (Verified 05/23/18:24) not to take d/t [place]' simvastatin [From Zocor] Adverse Reaction (Verified 05/23/18 11:24) nausea/vomiting/diarrhea ANTI INFLAMMATORIES Allergy (Uncoded 05/23/18 11:24) Other NEOPRENE Allergy (Uncoded 07/13/18 11:24) Rash statins Adverse Reaction (Severe, Uncoded 05/23/18 11:24) Muscle aches, increased CK benadryl Adverse Reaction (Intermediate, Uncoded 05/23/18 11:24) Anxious Medications to take at Discharge Aspirin [Aspirin, Baby] 81 mg PO QHS 04/26/16 Ergocalciferol [Vitamin D] 50,000 unit PO SUWE 04/26/16 Esomeprazole Mag Trihydrate [Nexium] 20 mg PO DAILY 04/26/16 Folic Acid 2 mg PO DAILY@0800 04/26/16 Levothyroxine Sodium [Levoxyl] 62.5 mcg PO 1200 04/26/16 Mometasone Furoate [Nasonex] 2 spray NASAL DAILY PRN 04/26/16 Multivitamin [Daily Multiple Vitamin] 1 each PO DAILY 04/26/16 P-Ephed HCl/Fexofenadine HCl [Sangeetha-D 24 Hour Tablet] 1 tab.sr PO DAILY 04/26/16 Estradiol 0.5 mg VAGINAL QHS 03/26/18 Docusate Sodium [Colace] 100 mg PO BID PRN PRN #60 cap 03/31/18 Amlodipine [Norvasc] 5 mg PO QHS 05/23/18 Colestipol Tablet [Colestid Tablet] 2 g PO BID 05/23/18 Cyanocobalamin (Vitamin B-12) [Vitamin B-12] 1,000 mcg PO DAILY 05/23/18 Metaxalone [Skelaxin] 800 mg PO PRN PRN 05/23/18 Metoprolol(XL)Succ [Toprol Xl (Beta Joel)] 25 mg PO QHS 05/23/18 Ubidecarenone [Coenzyme Q-10] 200 mg PO DAILY 05/23/18 Acetaminophen [Tylenol] 1,000 mg PO Q8 #90 tab 06/05/18 Loratadine [Claritin] 10 mg PO DAILY tablet 06/05/18 Pseudoephedrine [Sudafed] 60 mg PO 4X/DAY tablet 06/05/18 Rivaroxaban [Xarelto] 10 mg PO DAILY@0600 #13 tab 06/05/18 Senna/Docusate Sodium [Senokot-S] 2 tab PO BID #20 tab 06/05/18 traMADol [Ultram] 50 mg PO TID PRN PRN 7 Days #21 tab 06/05/18 The following prescriptions were given: Acetaminophen [Tylenol] 1,000 mg PO Q8 #90 tab Rivaroxaban [Xarelto] 10 mg PO DAILY@0600 #13 tab traMADol [Ultram] 50 mg PO TID PRN PRN 7 Days #21 tab PRN Reason: Moderate Pain (4-5/10) Senna/Docusate Sodium [Senokot-S] 2 tab PO BID #20 tab Primary Care Physician: Joi Gonzalez MD [Primary Care Provider] - Test Results: Test results from this visit will be discussed in further detail at your follow-up appointment, if applicable. Please Follow Up With: Physical therapy When: 06/09/18 @ 10:00 am Please Follow Up With: Chuck Shaffer PA-C When: 06/18/18 @ 11:00 am
[2018-06-05] MEDS: proMETHazine 25 MG/ML Syringe 12.5 MG IM (11:33)
[2018-06-05] MEDS: Ondansetron 4 MG/2 ML Vial IV (13:47)
--- NOTE | 2018-06-05 15:27 | CASEMGMT ---
INGE VILCHIS Face to Face with patient for initial transition planning/care coordination assessment. RN DENG introduced self and role at [facility]. Patient lying in bed, alert and oriented. Patient willing to participate in assessment and is able to answer all questions appropriately. Care providers, pharmacy, and demographics verified. See link attached. Patient wishes to discharge home and is setup with [facility] for outpatient therapy with provided transport. Patient states she has no further needs or concerns at this time. CM to follow for discharge planning needs that may arise. Disposition Plan: Patient to discharge home with outpatient, family support, and follow-up plans in place.
[2018-06-05] MEDS: proCHLORPERazine 5 MG Tablet 10 MG PO (18:14)
[2018-06-05 18:25] VITALS: BP 153/88; PULSE 93; RESP 18; TEMP 37.6; O2SAT 96
--- NOTE | 2018-06-05 19:08 | PCM.PROGNOTE ---
Subjective: Patient was seen and examined today, other than incisional pain in her right knee, she has no complaints at present time. - Physical Exam General: Alert, Oriented x3, Cooperative, No apparent distress, Well developed, Well nourished HEENT: Atraumatic, PERRLA, EOMI, Normocephalic Oral: Moist Mucosa Neck: Supple, No JVD, No Nuchal Rigidity, Trachea Midline, Thyroid Normal Size and Texture Lungs: Clear to auscultation, Normal air movement, No rhonchi, No wheeze, No rales Cardiovascular: Regular rate, Regular Rhythm, Normal S1, Normal S2, No murmurs, No Ectopic Activity, PMI Normal, No rub noted, No Gallop Abdomen: Bowel Sounds Present, Soft, Non Tender, Non-Distended Extremities: No clubbing, No cyanosis, Capillary Refill Less than 3 Seconds Skin: No rashes Neurological: Cranial nerves II-XII grossly intact, Neuro grossly intact, Sensory exam intact to light touch and pain, Coordination normal Psych/Mental Status: Normal Affect, Appropriate, Alert and oriented to time, place, person, mood and affect Vital Signs Temp Pulse Resp BP Pulse Ox 99.7 F H 93 18 153/88 H 96 06/05/18 18:25 06/05/18 18:25 06/05/18 18:25 06/05/18 18:25 06/05/18 18:25 Oxygen Delivery Method Room Air Weight: 90.2 kg Body Mass Index (BMI) 33.5 Intake and Output for Last 24 Hours 06/03/18 06/04/18 06/05/18 23:59 23:59 23:59 Intake Total 2423 / 2423 2922 / 2922 Output Total 300 / 300 1500 / 1500 Balance 2123 / 2123 1422 / 1422 Microbiology Past 72 Hours 06/04/18 Unknown Gram Stain - Final Tissue - Knee Wound Culture - Preliminary No growth-Final to follow 06/04/18 Unknown Gram Stain - Final Tissue - Knee Wound Culture - Preliminary No growth-Final to follow 06/04/18 Unknown Gram Stain - Final Tissue - Knee Wound Culture - Preliminary No growth-Final to follow Laboratory Tests Past 24 Hrs 06/05/18 06/05/18 05:20 05:20 WBC 5.7 RBC 4.29 Hgb 12.3 Hct 36.9 L MCV 86.0 MCH 28.7 MCHC 33.3 RDW 12.8 RDW Differential 39.4 Plt Count 222 MPV 9.1 Sodium 137 Potassium 3.9 Chloride 99 Carbon Dioxide 32.0 Anion Gap 6 BUN 6 L Creatinine 0.58 Estim Creat Clear Calc 47.14 Est GFR (MDRD) Af Amer 134 Est GFR (MDRD) Non-Af 111 BUN/Creatinine Ratio 10.4 Glucose 109 H Calcium 8.3 L Medical Necessity - Tobacco Use Smoking Status: Never smoker Assessment/Plan All Active Problems (Last Reviewed 12/26/17 @ 15:00 by Graham Palacios MD) Chest pressure (Resolved) #1 coronary artery disease-stable at this time #2 hypertension-stable at this time #3 GERD-continue Protonix, Pepcid was discontinued due to her use of Protonix #4 hypothyroidism #5 status post revision right total knee replacement polyethylene exchange and patella revision-postop day #1 Code Visit Inpatient E&M: 06322 Subs Hosp L2
[2018-06-05 20:12] VITALS: BP 144/73; PULSE 96; RESP 18; TEMP 37.3; O2SAT 95
[2018-06-05] MEDS: Aspirin 81 MG TAB.CHEW PO (21:42)
[2018-06-05 21:43] VITALS: BP 149/79; PULSE 94
[2018-06-05] MEDS: Metoprolol(XL)Succ 25 MG Tablet PO (21:43)
[2018-06-05] MEDS: amLODIPine 5 MG Tablet PO (21:43)
[2018-06-05] MEDS: Estradiol 0.5 MG Tablet PO (21:44)
[2018-06-06 02:36] VITALS: BP 128/79; PULSE 83; RESP 18; TEMP 36.6; O2SAT 94
[2018-06-06] MEDS: Acetaminophen 500 MG Tablet 1000 MG PO (05:15)
[2018-06-06] MEDS: Rivaroxaban 10 MG Tablet PO (05:16)
[2018-06-06 06:17] LABS: Hematocrit 40.8 % (37-47); Hemoglobin 13.7 g/dl (12.0-15.0); Mean Corp Hgb Conc 33.6 g/gl (32-36); Mean Corpuscular Hgb 28.9 pg (27.0-32.0); Mean Corpuscular Volume 86.1 fL (81-99); Mean Platelet Vol. 9.3 fl (6.2-12.0); Platelet Count 249 K/mm3 (150-450); RBC Distribution Width CV 13.1 % (11.6-14.6); RBC Distribution Width SD 41.5 fl (35.1-43.9); Red Blood Count 4.74 M/mm3 (4.2-5.4); White Blood Count 7.2 K/mm3 (4.4-11.0)
[2018-06-06 06:37] LABS: Scan Indicated on CBC? Y/N NO
--- NOTE | 2018-06-06 07:09 | PN.ORTHO_ITS ---
Subjective: The patient was sitting in bedside chair upon examination. Patient denies any chest pain, shortness of breath, dizziness, lightheadedness, nausea or vomiting , or calf pain. No adverse overnight events. Patient states her nausea is much improved from yesterday. She does continue to have pain in the right knee and is only using tramadol 50 mg 3 times daily. Patient does wish to try to go home today. Objective: Vital signs stable and afebrile. Patient is able to plantarflex and dorsiflex actively. Sensation is intact to light touch to saphenous, sural, superficial and deep peroneal, and tibial distribution. Dressing is with minimal drainage to distal one third which is been stable Negative Homans bilaterally, negative signs and symptoms of DVT. - Physical Exam General: Alert, Oriented x3, Cooperative, No apparent distress Vital Signs Temp Pulse Resp BP Pulse Ox 97.8 F 83 18 128/79 H 94 06/06/18 02:36 06/06/18 02:36 06/06/18 02:36 06/06/18 02:36 06/06/18 02:36 Oxygen Delivery Method Room Air Weight: 90.2 kg Body Mass Index (BMI) 33.5 Intake and Output for Last 24 Hours 06/04/18 06/05/18 06/06/18 23:59 23:59 23:59 Intake Total 2423 / 2423 3122 / 3122 200 / 200 Output Total 300 / 300 1500 / 1500 Balance 2123 / 2123 1622 / 1622 200 / 200 Microbiology Past 72 Hours 06/04/18 Unknown Gram Stain - Final Tissue - Knee Wound Culture - Preliminary No growth-Final to follow 06/04/18 Unknown Gram Stain - Final Tissue - Knee Wound Culture - Preliminary No growth-Final to follow 06/04/18 Unknown Gram Stain - Final Tissue - Knee Wound Culture - Preliminary No growth-Final to follow Laboratory Tests Past 24 Hrs 06/06/18 05:25 WBC 7.2 RBC 4.74 Hgb 13.7 Hct 40.8 MCV 86.1 MCH 28.9 MCHC 33.6 RDW 13.1 RDW Differential 41.5 Plt Count 249 MPV 9.3 Medical Necessity - Tobacco Use Smoking Status: Never smoker Assessment/Plan All Active Problems (Last Reviewed 12/26/17 @ 15:00 by Graham Palacios MD) Chest pressure (Resolved) 1. 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 Continue Pain Medications: Tylenol and tramadol, will change tramadol to 1- 2 tablets every 6 hours as needed pain 3. DVT Prophylaxis: Xarelto ?2 weeks 4. PT/OT: Weightbearing as tolerated 5. H & H: 13.7/40.8, asymptomatic 6. Encouraged Incentive Spirometry 7. Continue postoperative medical management per medicine 8. Disposition: Plan will be for possible discharge home today. Prescriptions will be attached to chart. Patient will follow-up per [facility] postop instructions.
--- NOTE | 2018-06-06 07:27 | PCM.DC.TKR ---
Discharge Diet: No Restrictions Discharge Activity: May Not Drive May shower in (days): 1 - Turned dressing away from water Ice area for (Minutes): 20 - every hour while awake. Weight Bearing Status: Weight bearing as tolerated Elevate: Operative Extremity Additional Activity Instructions:: Wear elastic stockings for 2 weeks after your surgery. Call your doctor if your incision/area has: Continuous Slow Oozing, Sudden Increased Bleeding, Increased Pain/ Swelling, Increased Redness, Foul Smelling Discharge Call your doctor if you observe: Fever of 101 or Higher, Coldness, Increased Pain, Numbness or Tingling, Change in Color, Calf discomfort, Uncontrolled pain Remove Dressing in (days):: 3 - Okay to remove dressing on June 09, 2018 Additional Instructions: Follow [facility] postop instructions Allergies/Adverse Reactions: Allergies etodolac Allergy (Verified 05/23/18:24) Other Iodinated Contrast- Oral and IV Dye [Iodinated Contrast Media - IV Dye] Allergy (Verified 05/23/18 11:24) Hives naproxen [From Naprosyn] Allergy (Verified 05/23/18:24) Other Penicillins Allergy (Verified 05/23/18:24) Hives quinine Allergy (Verified 05/23/18 11:24) nausea/vomiting/diarrhea acetaminophen [From Vicodin] Adverse Reaction (Verified 05/23/18:24) Nausea/Vom/Diarrhea ezetimibe [From Zetia] Adverse Reaction (Verified 05/23/18 11:24) nausea/vomiting/diarrhea hydrocodone bitartrate [From Vicodin] Adverse Reaction (Verified 05/23/18 11:24) Nausea/Vom/Diarrhea oxybutynin chloride [From Ditropan] Adverse Reaction (Verified 05/23/18 11:24) nausea/vomiting/diarrhea pravastatin sodium [From Pravachol] Adverse Reaction (Verified 05/23/18 11:24) Pain in joints rofecoxib [From Vioxx] Adverse Reaction (Verified 05/23/18:24) not to take d/t PR' simvastatin [From Zocor] Adverse Reaction (Verified 05/23/18 11:24) nausea/vomiting/diarrhea ANTI INFLAMMATORIES Allergy (Uncoded 05/23/18 11:24) Other NEOPRENE Allergy (Uncoded 07/13/18 11:24) Rash statins Adverse Reaction (Severe, Uncoded 05/23/18 11:24) Muscle aches, increased CK benadryl Adverse Reaction (Intermediate, Uncoded 05/23/18 11:24) Anxious Medications to take at Discharge Aspirin [Aspirin, Baby] 81 mg PO QHS 04/26/16 Ergocalciferol [Vitamin D] 50,000 unit PO SUWE 04/26/16 Esomeprazole Mag Trihydrate [Nexium] 20 mg PO DAILY 04/26/16 Folic Acid 2 mg PO DAILY@0800 04/26/16 Levothyroxine Sodium [Levoxyl] 62.5 mcg PO 1200 04/26/16 Mometasone Furoate [Nasonex] 2 spray NASAL DAILY PRN 04/26/16 Multivitamin [Daily Multiple Vitamin] 1 each PO DAILY 04/26/16 P-Ephed HCl/Fexofenadine HCl [Sangeetha-D 24 Hour Tablet] 1 tab.sr PO DAILY 04/26/16 Estradiol 0.5 mg VAGINAL QHS 03/26/18 Docusate Sodium [Colace] 100 mg PO BID PRN PRN #60 cap 03/31/18 Amlodipine [Norvasc] 5 mg PO QHS 05/23/18 Colestipol Tablet [Colestid Tablet] 2 g PO BID 05/23/18 Cyanocobalamin (Vitamin B-12) [Vitamin B-12] 1,000 mcg PO DAILY 05/23/18 Metaxalone [Skelaxin] 800 mg PO PRN PRN 05/23/18 Metoprolol(XL)Succ [Toprol Xl (Beta Joel)] 25 mg PO QHS 05/23/18 Ubidecarenone [Coenzyme Q-10] 200 mg PO DAILY 05/23/18 Acetaminophen [Tylenol] 1,000 mg PO Q8 #90 tab 06/05/18 Loratadine [Claritin] 10 mg PO DAILY tablet 06/05/18 Pseudoephedrine [Sudafed] 60 mg PO 4X/DAY tablet 06/05/18 Rivaroxaban [Xarelto] 10 mg PO DAILY@0600 #13 tab 06/05/18 Senna/Docusate Sodium [Senokot-S] 2 tab PO BID #20 tab 06/05/18 proCHLORPERazine tablet [Compazine tablet] 10 mg PO Q4H PRN PRN #14 tab 06/06/18 traMADol [Ultram] 50 - 100 mg PO Q6H PRN PRN 7 Days #56 tab 06/06/18 The following prescriptions were given: proCHLORPERazine tablet [Compazine tablet] 10 mg PO Q4H PRN PRN #14 tab PRN Reason: NAUSEA/VOMITING traMADol [Ultram] 50 - 100 mg PO Q6H PRN PRN 7 Days #56 tab PRN Reason: Moderate Pain (4-5/10) Acetaminophen [Tylenol] 1,000 mg PO Q8 #90 tab Rivaroxaban [Xarelto] 10 mg PO DAILY@0600 #13 tab Senna/Docusate Sodium [Senokot-S] 2 tab PO BID #20 tab Primary Care Physician: Joi Gonzalez MD [Primary Care Provider] - Test Results: Test results from this visit will be discussed in further detail at your follow-up appointment, if applicable. Please Follow Up With: Physical therapy When: 06/09/18 @ 10:00 am Please Follow Up With: Chuck Shaffer PA-C When: 06/18/18 @ 11:00 am
[2018-06-06] MEDS: Folic Acid 1 MG Tablet 2 MG PO (08:14)
[2018-06-06] MEDS: Multivitamins,Therapeutic Tablet 1 TABLET PO (08:14)
[2018-06-06 08:15] VITALS: BP 130/72; PULSE 103; RESP 18; TEMP 36.8; O2SAT 93
[2018-06-06 09:35] VITALS: PULSE 76
[2018-06-06] MEDS: Pantoprazole Sodium 20 MG Tablet PO (09:40)
[2018-06-06] MEDS: Cyanocobalamin 500 MCG Tablet 1000 MCG PO (09:40)
[2018-06-06] MEDS: Senna/Docusate Sodium 1 Tablet 2 TABLET PO (09:40)
[2018-06-06 10:04] VITALS: BP 139/69; PULSE 84; RESP 18; TEMP 36.6; O2SAT 97
== END 2018-06-06 10:20 | disposition home or self-care (01) | DRG 468 ==
PROVIDERS: Admitting Provider Specialist; Family Provider Internal Medicine; PCP Internal Medicine; Visit Provider Internal Medicine
PROC: 0SPC0JZ Removal of Synthetic Substitute from Right Knee Joint, Open Approach (ICD-10-PCS; CPT 27487; principal; 2018-06-04 13:40)
DX: T84.022A Instability of internal right knee prosthesis, initial encounter (principal); T84.84XA Pain due to internal orthopedic prosthetic devices, implants and grafts, initial encounter; I25.10 Atherosclerotic heart disease of native coronary artery without angina pectoris; I25.2 Old myocardial infarction; I10 Essential (primary) hypertension; E03.9 Hypothyroidism, unspecified; K21.9 Gastro-esophageal reflux disease without esophagitis; Z96.651 Presence of right artificial knee joint; Z86.718 Personal history of other venous thrombosis and embolism; Z79.01 Long term (current) use of anticoagulants; Z79.899 Other long term (current) drug therapy; Z79.82 Long term (current) use of aspirin
CPT/HCPCS: 36415; 73560; 80048; 85025; 85027; 87015; 87070; 87075; 87081; 87102; 87116; 87205; 87206; 97116; 97162; 97165; 97530; 97535; 99251; C1776; J7120; A4216; G0463; J2405

== ENCOUNTER → 2018-06-24 08:48 | Outpatient (CLI) | payer MEDICARE, OTHER, SELFPAY | PROVIDERS: Family Provider Internal Medicine; PCP Internal Medicine; Visit Provider Obstetrics & Gynecology | DX: Z12.31 Encounter for screening mammogram for malignant neoplasm of breast (principal); N63.20 Unspecified lump in the left breast, unspecified quadrant | CPT/HCPCS: 77063; 77067 ==

== ENCOUNTER → 2018-06-30 11:28 | Outpatient (CLI) | payer MEDICARE, OTHER, SELFPAY | PROVIDERS: Family Provider Internal Medicine; PCP Internal Medicine; Visit Provider Obstetrics & Gynecology | DX: R92.8 Other abnormal and inconclusive findings on diagnostic imaging of breast (principal) | CPT/HCPCS: 76642 ==

== ENCOUNTER 2018-07-07 09:44 | Emergency (ER) | payer MEDICARE, OTHER, SELFPAY ==
[2018-07-07 09:45] VITALS: BP 140/91; PULSE 92; RESP 16; TEMP 37.1; O2SAT 97; BMI 32.1
--- NOTE | 2018-07-07 10:02 | RAD_ITS ---
RAD/Chest PA and Lateral IMPRESSION: Degenerative changes, as described above. No demonstrated acute cardiopulmonary process. Electronically Signed: Joel Sanford DO at 10:50 EDT Tel , Service support ,
--- NOTE | 2018-07-07 10:03 | ED.VISSUMM ---
- ER Visit Summary Date of Service: 07/07/18 Chief Complaint: Chest pain History of Present Illness: The patient is a 68 F states that yesterday morning she woke with a heaviness in her chest neck back. She felt that she had slept wrong and her neck was sore to move. She states that she did ice and heat and eventually went away but had been off and on during the evening hours and during the night. She states now it seems to be worse whenever she moves her left arm. She states that she was recently on Xarelto following a knee replacement and was taken an aspirin but has held in that because she has a breast biopsy scheduled at 11:00. She denies any shortness of breath. She states she has been under a significant amount of stress and has very bad heartburn. States she had a heart cath 2003 and subsequently has had a stress test that was negative. Is not had any problems riding the exercise bike in physical therapy Physical Examination: Afebrile vital signs are stable Gen: Well-nourished well-developed Head: Normocephalic atraumatic Eyes: Perrl EOMI ENT: TMs clear no rhinorrhea moist mucous membranes Neck: Supple no lymphadenopathy no JVD nontender CVS: Regular rate rhythm no murmurs normal S1-S2 Respiratory: No distress clear to auscultation bilaterally tender to palpation left upper anterior chest radiating along the ribs into the back and has trapezius tenderness in the neck and associated ribs as in the front this pain is reproducible by myself and by the patient moving her neck and left arm Abdomen: Soft nontender nondistended normal bowel sounds no masses Back: Nontender Extremity: Nontender no edema Skin: Normal color no rash Neuro: alert orientated ?3 CN II-XII intact normal strength sensation reflexes gait cerebellar Psych: Normal affect normal mood Test Results: EKG demonstrates a sinus rhythm at a rate of [address] segments. Troponin is negative. Chest x-ray is negative Emergency Department Course and Treatment: Given the history and the physical exam as well as supportive testing I feel this most likely muscle skeletal. She will be discharged home. Impression: 1. Muscular skeletal chest wall pain This note was generated with [employer] dictation software. It may contain incorrect words, spelling, and punctuation that were not noted in review of the chart prior to signing ED Disposition - Plan for ED Patient: Disposition: Home or Assisted Living Chief Complaint: Chest Pain Instructions: ED Strain Chest Wall Referrals: Joi Gonzalez MD [Primary Care Provider] - 1 Week if not improving
[2018-07-07 10:14] LABS: Absolute Lymphocyte Count 1.22 X10^3/ul (0.83-4.51); Absolute Neutrophil Count 1.5 X10^3/uL (2.0-7.7); Basophil# 0.02 X10^3/uL; Basophil% 0.6 % (0-1); Eosinophil# 0.15 X10^3/uL; Eosinophils% 4.4 % (0-5); Hematocrit 40.7 % (37-47); Hemoglobin 13.5 g/dl (12.0-15.0); Lymphocyte # 1.22 X10^3/ul (4.0); Lymphocyte % 35.9 % (19-41); Mean Corp Hgb Conc 33.2 g/gl (32-36); Mean Corpuscular Hgb 28.5 pg (27.0-32.0); Mean Corpuscular Volume 85.9 fL (81-99); Mean Platelet Vol. 9.2 fl (6.2-12.0); Monocyte# 0.47 X10^3/uL; Monocyte% 13.8 % (0-10); Neutrophil # 1.54 X10^3/uL (2.7-7.7); Neutrophil % 45.3 % (47-70); POSITIVE COUNT NO; POSITIVE DIFFERENTIAL NO; POSITIVE MORPHOLOGY NO; Platelet Count 224 K/mm3 (150-450); RBC Distribution Width CV 13.3 % (11.6-14.6); RBC Distribution Width SD 41.2 fl (35.1-43.9); Red Blood Count 4.74 M/mm3 (4.2-5.4); White Blood Count 3.4 K/mm3 (4.4-11.0)
[2018-07-07 10:28] LABS: Anion Gap 7 (5-15); BUN 10 mg/dL (7-18); BUN/Creat Ratio 14.3 RATIO (10-20); Calcium,Total 8.9 mg/dL (8.5-10.1); Chloride 105 mmol/L (98-107); EST Glomerular Filtration Rate 88 mL/min (>60); Est Glom Filt Rate - Afr Amer 107 mL/min (>60); Glucose 108 mg/dL (74-106); Potassium 3.7 mmol/L (3.5-5.1); Sodium Level 140 mmol/L (136-145)
[2018-07-07 11:06] VITALS: BP 119/53; PULSE 83; RESP 18; O2SAT 97
== END 2018-07-07 11:10 | disposition home or self-care (01) ==
LOC: ED 10:57
PROVIDERS: Emergency Provider Emergency Medicine; Family Provider Internal Medicine; PCP Internal Medicine
DX: R07.89 Other chest pain (principal); K21.9 Gastro-esophageal reflux disease without esophagitis; Z79.82 Long term (current) use of aspirin; Z79.899 Other long term (current) drug therapy
CPT/HCPCS: 71046; 80048; 84484; 85025; 93005; 99284; A4216

== ENCOUNTER → 2018-07-07 10:49 | Outpatient (CLI) | payer MEDICARE, OTHER, SELFPAY ==
--- NOTE | 2018-07-07 | BRBX_PTH ---
PATIENT: NADER AGUILA LOC: [facility] U#:[id number] AGE/SX: 75/F ROOM: RE07/07/[address]: Dr. Josias Sifuentes MD : [id number] BED: DIS: SPEC #: [id number] RECD: 07/07/18 13:06 STATUS: NURIA RAUL #: [id number] MARCO ANTONIO: 07/07/18 00:[address]: Josias Sifuentes DEPT: SURGICAL PATHOLOGY RECD BY: Paul Palumbo ENTERED: 07/07/18 13:54 SP TYPE: BREAST BX OTHR DR: Dr. Joi Gonzalez MD Tissues: Left breast, NOS Procedures: Surgery Specimen Level IV HEADER OPERATION: Left stereotactic needle core biopsy PRE-OP DIAGNOSIS: Left UOQ, 7mm nodule TISSUE SUBMITTED: Left breast, core tissue ISCHEMIC TIME: 1 minute FIXATION TIME: 6 hours MICROSCOPIC DIAGNOSIS Left breast, stereotactic core biopsy: Fibroadenoma. AM:heather 07/08/18 MICROSCOPIC DESCRIPTION Slides are reviewed. GROSS DESCRIPTION Received is one container labeled with the patient's name and not further designated. The specimen consists of multiple irregular and elongated fragments of atkinson-yellow soft tissue that in aggregate measure 2.5 x 2 x 0.2 cm. The specimen is totally submitted in one cassette. / AM:heather 07/07/18 TC:5 CPT: 31341
--- NOTE | 2018-07-07 12:07 | PCM.OPRPT ---
Problem List (1) Abnormality of left breast on screening mammogram Status: Acute Report of Operation Date of Procedure: 07/07/18 Pre-Operative Diagnosis: Abnormal left breast mammogram BI-RADS 4 Post-Operative Diagnosis: Same Surgery/Procedure Performed:: Stereotactic guided left cor needle biopsy with placement of localization clip Specimen's removed: Left breast biopsy Description of Procedure: The patient was placed on the stereotactic table in the left breast was compressed and spot views were taken. The abnormality was able to be visualized on mammogram. Next positive and negative 15? views were obtained and the mass was localized on the computer. The needle was placed in the appropriate direction and the skin was prepped and draped and anesthetized with lidocaine. A small incision was made with a scalpel. Next the needle was placed in the left breast and fired. Biopsies were then obtained and the localization clip was deployed. The needle was removed and the breast and confirmatory mammogram was taken. Pressure was held on the breast incision and a Steri-Strip and bandage were placed over the incision. The patient tolerated the procedure well.
== END ==
PROVIDERS: Family Provider Internal Medicine; PCP Internal Medicine; Referring Provider Surgery; Visit Provider Surgery
DX: D24.2 Benign neoplasm of left breast (principal); R92.8 Other abnormal and inconclusive findings on diagnostic imaging of breast
CPT/HCPCS: 19081; 88305; J7050; A4648

== ENCOUNTER → 2018-12-12 08:39 | Outpatient (CLI) | payer MEDICARE, OTHER, SELFPAY ==
[2018-08-17 11:08] VITALS: BMI 34.8
[2018-12-12 09:43] LABS: AST(SGOT) 14 U/L (15-37); Alanine Aminotransfer ALT/SGPT 24 U/L (13-56); Albumin, Serum 3.5 g/dL (3.2-5.0); Alkaline Phosphatase 92 U/L (45-117); Bilirubin, Direct 0.11 mg/dL (0.00-0.30); Cholesterol 178 mg/dL (200); Globulin 4.7 g/dL (2.2-4.2); High Density Lipoprotein 49 mg/dL; Protein, Total 8.2 g/dL (6.4-8.2); Triglycerides 149 mg/dL; Very Low Density Lipoprotein 30 mg/dL (5-40)
== END ==
PROVIDERS: Family Provider Internal Medicine; PCP Internal Medicine; Referring Provider Physician Assistant Medical; Visit Provider Physician Assistant Medical
DX: I25.10 Atherosclerotic heart disease of native coronary artery without angina pectoris (principal); I25.2 Old myocardial infarction; I10 Essential (primary) hypertension; E78.5 Hyperlipidemia, unspecified
CPT/HCPCS: 36415; 80061; 80076

== ENCOUNTER → 2018-12-26 13:57 | Outpatient (CLI) | payer MEDICARE, OTHER, SELFPAY ==
[2018-12-26 12:55] VITALS: BMI 34.8
--- NOTE | 2018-12-26 14:00 | BI_ITS ---
MAMMOGRAPHY - UNILATERAL DIAGNOSTIC: LEFT BREAST REASON FOR EXAM: Female, 68 years old. Six-month follow-up examination following biopsy of the left breast nodule. PERTINENT HISTORY: Non-contributory. TECHNIQUE: Digital unilateral breast kris (3D mammographic acquisition) in the CC and MLO projections. 2-D mediolateral oblique (MLO) and craniocaudad (CC) views of both breasts were obtained. CAD: Full Field Digital Mammography with Computer Added Detection was performed. COMPARISON: Comparison is made with prior examination dated June 24, 2018. FINDINGS: Breast Composition: There are scattered areas of fibroglandular density. The nodular density in the upper lateral portion of the left breast measures 1.2 cm at this time. A tissue clip marker is seen within. The nodule has a slightly lobular appearance most likely secondary to prior biopsy. No other significant abnormalities are identified. BI/DIAG MAMM W/CAD, UNILAT IMPRESSION: Stable unilateral diagnostic mammogram. One year follow-up mammogram recommended. (A) ASSESSMENT CATEGORY: BIRADS Category 2: Benign. A letter regarding these results will be sent to the patient by the facility within 30 days. Approximately 10% of breast cancers are not detected by mammography. A normal mammogram should not delay biopsy of a clinically suspicious abnormality. Electronically Signed: Alex Haywood MD at 8:41 EST , Service support ,
--- NOTE | 2018-12-26 14:28 | US_ITS ---
STUDY: ULTRASOUND BREAST - LEFT REASON FOR EXAM: Female, 68 years old. Six-month follow-up for left breast biopsy. TECHNIQUE: Axial and longitudinal images of the LEFT breast were performed with a high resolution ultrasound transducer. COMPARISON: Comparison is made with prior ultrasound of the breasts dated June 30, 2018. FINDINGS: LEFT Breast: Stable appearance of the 6 mm x 7 mm x 8 mm well-defined slightly isoechoic/hypoechoic nodule at the 2:00 position of the breast at 3 cm from the nipple. A tissue clip marker is seen within it. US/Breast Limited Unilateral IMPRESSION: Stable appearance of the nodule. A tissue clip marker is seen within from recent biopsy. ASSESSMENT CATEGORY: BIRADS Category 2: Benign. A letter regarding these results will be sent to the patient by the facility within 30 days. Electronically Signed: Alex Haywood MD at 8:37 EST , Service support ,
== END ==
PROVIDERS: Family Provider Internal Medicine; PCP Internal Medicine; Referring Provider Surgery; Visit Provider Surgery
DX: N63.20 Unspecified lump in the left breast, unspecified quadrant (principal)
CPT/HCPCS: 76642; 77061; 77065; G0279

== ENCOUNTER → 2019-01-07 06:19 | Outpatient (CLI) | payer MEDICARE, OTHER, SELFPAY ==
[2018-12-26 12:55] VITALS: BMI 34.8
[2018-12-31 08:45] VITALS: BMI 34.8
--- NOTE | 2019-01-07 09:04 | STRESSREP ---
Stress Test Report Exercise myocardial perfusion stress test. 68-year-old lady with a history of chest pain. Medications: Folic acid Nexium metoprolol colestipol amiodarone. Stress protocol: Resting EKG demonstrates normal sinus rhythm with a rate of 84 bpm normal intervals are noted resting blood pressure 118/74 mmHg. The patient exercised according to regular Elliott protocol for total duration of 6 minutes completing stage II of the Elliott protocol. The maximum heart rate attained was 162 bpm which was 106% of maximum predicted heart rate the maximum workload was 7 metabolic equivalents. At rest there were no ST or T wave changes noted suggest ischemia peak exercise upsloping ST changes only were noted with no meet the criteria for ischemia. The resting blood pressure is 118/74 with a peak blood pressure 162/80 rate pressure product was 26,200. Myocardial perfusion protocol. 11.8 mCi of technetium 99m sestamibi was injected at rest. The patient exercised according to regular Elliott protocol for 6 minutes at peak exercise 33.3 mCi of technetium 99m sestamibi was injected stress images were obtained stress and rest images were reconstructed and compared in the short axis vertical long horizontal long axis. Gated images were also obtained per Perfusion SPECT analysis: Review of the stress images demonstrate normal uptake of tracer noted in all areas of myocardium. The resting images similarly demonstrate normal uptake of tracer noted in all areas of myocardium. No areas of reversibility noted suggest ischemia no previous infarct is noted. Gated SPECT analysis: The gated ejection fraction is noted to be 80%. Conclusion: Normal exercise myocardial perfusion stress test. Preserved ejection fraction.
== END ==
PROVIDERS: Family Provider Internal Medicine; PCP Internal Medicine; Referring Provider Physician Assistant Medical; Visit Provider Physician Assistant Medical
DX: I25.10 Atherosclerotic heart disease of native coronary artery without angina pectoris (principal); I10 Essential (primary) hypertension; E78.00 Pure hypercholesterolemia, unspecified
CPT/HCPCS: 78452; 93017; A9500; A4216

== ENCOUNTER → 2019-12-26 07:18 | Outpatient (CLI) | payer MEDICARE, OTHER, SELFPAY ==
[2019-04-07 09:14] VITALS: BMI 34.8
[2019-12-26 09:33] LABS: AST(SGOT) 11 U/L (15-37); Alanine Aminotransfer ALT/SGPT 25 U/L (13-56); Albumin, Serum 3.7 g/dL (3.2-5.0); Alkaline Phosphatase 81 U/L (45-117); Cholesterol 190 mg/dL (200); Globulin 4.7 g/dL (2.2-4.2); High Density Lipoprotein 50 mg/dL; Protein, Total 8.4 g/dL (6.4-8.2); Triglycerides 128 mg/dL; Very Low Density Lipoprotein 26 mg/dL (5-40)
== END ==
PROVIDERS: Physician Assistant Medical; PCP Internal Medicine; Referring Provider Internal Medicine Cardiovascular Disease; Visit Provider Internal Medicine Cardiovascular Disease
DX: E78.5 Hyperlipidemia, unspecified (principal)
CPT/HCPCS: 36415; 80061; 80076

== ENCOUNTER → 2019-12-31 12:09 | Outpatient (CLI) | payer MEDICARE, OTHER, SELFPAY ==
[2019-04-07 09:14] VITALS: BMI 34.8
--- NOTE | 2019-12-31 12:10 | BI_ITS ---
MAMMOGRAPHY - BILATERAL SCREENING REASON FOR EXAM: Female, 69 years old. Routine annual screening examination. PERTINENT HISTORY: Non-contributory. Remote left stereotactic breast biopsy. TECHNIQUE: Digital bilateral breast shena (3D mammographic acquisition) in the CC and MLO projections. 2-D mediolateral oblique (MLO) and craniocaudad (CC) views of both breasts were obtained. CAD: Full Field Digital Mammography with Computer Added Detection was performed. COMPARISON: Comparison is made with prior examination dated December 26, 2018 and June 24, 2018. FINDINGS: Breast Composition: There are scattered areas of fibroglandular density. There are no dominant masses or suspicious calcifications. A tissue clip marker is seen within a tiny nodule in the upper outer aspect of the left breast. The nodule has decreased in size. It presently measures 3.9 mm. No other significant abnormalities are identified. BI/SCREEN MAMM (CAD) W/SHENA BILAT IMPRESSION: Interval decreased size of the nodular density with a tissue clip marker within it in the upper lateral aspect of the left breast. Yearly follow-up mammogram recommended. (A) ASSESSMENT CATEGORY: BIRADS Category 2: Benign. A letter regarding these results will be sent to the patient by the facility within 30 days. Approximately 10% of breast cancers are not detected by mammography. A normal mammogram should not delay biopsy of a clinically suspicious abnormality. [id number] Electronically Signed: Alex Haywood, at 15:12 EST , Service support ,
== END ==
PROVIDERS: Family Provider Internal Medicine; PCP Internal Medicine; Referring Provider Obstetrics & Gynecology; Visit Provider Obstetrics & Gynecology
DX: Z12.31 Encounter for screening mammogram for malignant neoplasm of breast (principal)
CPT/HCPCS: 77063; 77067

== ENCOUNTER → 2020-06-30 09:10 | Outpatient (CLI) | payer MEDICARE, OTHER, SELFPAY ==
[2020-04-26 13:52] VITALS: BMI 33.6
[2020-06-30 10:43] LABS: AST(SGOT) 18 U/L (15-37); Alanine Aminotransfer ALT/SGPT 27 U/L (13-56); Albumin, Serum 3.8 g/dL (3.2-5.0); Alkaline Phosphatase 91 U/L (45-117); Cholesterol 198 mg/dL (200); Globulin 4.8 g/dL (2.2-4.2); High Density Lipoprotein 54 mg/dL; Protein, Total 8.6 g/dL (6.4-8.2); Thyroid Stim Hormone (TSH) 1.51 uIU/mL (0.358-3.74); Triglycerides 139 mg/dL; Very Low Density Lipoprotein 28 mg/dL (5-40)
== END ==
PROVIDERS: Internal Medicine Cardiovascular Disease; PCP Internal Medicine; Referring Provider Internal Medicine; Visit Provider Internal Medicine
DX: E03.9 Hypothyroidism, unspecified (principal); E78.00 Pure hypercholesterolemia, unspecified; E78.5 Hyperlipidemia, unspecified
CPT/HCPCS: 36415; 80061; 80076; 84443

== ENCOUNTER → 2020-07-28 09:44 | Outpatient (CLI) | payer MEDICARE, OTHER, SELFPAY ==
[2020-04-26 13:52] VITALS: BMI 33.6
[2020-07-21 11:52] VITALS: BMI 33.6
--- NOTE | 2020-07-28 09:45 | BD_ITS ---
STUDY: DUAL ENERGY X-RAY ABSORPTIOMETRY / DXA REASON FOR EXAM: Female, 70 years old. Age of skye- 40 total hysterectomy. Pat is 205.7# and 63.75 and quot;. Takes levothyroxin. Takes a multi-vit and Rolaids. Does a little exercising. Hx of fx to ribs several times and a finger. TECHNIQUE: Bone Mineral Density (BMD) measurements of lumbar spine and bilateral hips were obtained. COMPARISON: None. FINDINGS: Lumbar Spine (L1-L4): g/cm2 (0.993) / T-score (-1.6) / Z-score (0.1) Findings are suggestive of osteopenia with a moderate fracture risk. Left Femur Total: g/cm2 (0.842) / T-score (-1.3) / Z-score (0.1) Left Femoral Neck: g/cm2 (0.846) / T-score (-1.4) / Z-score (0.3) Right Femur Total: g/cm2 (0.836) / T-score (-1.4) / Z-score (0.1) Right Femoral Neck: g/cm2 (0.809) / T-score (-1.6) / Z-score (0.0) BD/Dexa Bone Density Study IMPRESSION: The patient is considered osteopenic as outlined below according to World Lei Organization (WHO) criteria with a moderate fracture risk. Reference Information: The T-score is the number of standard deviations above or below the standard which is normal for young adults at their peak bone mineral density. The World Health Organization (WHO) interprets the T-scores as follows: Above -1 Normal bone density Between -1 and -2.5 Osteopenia Equal to / or below -2.5 Osteoporosis As a practical clinical guideline, osteopenia may be graded as follows: Mild -1 through -1.5 Moderate -1.6 through -2.0 Severe -2.1 through -2.4 The Z-score is the number of standard deviations above or below age-matched controls. A Z-score of less than -1.5 would be considered abnormal. References: 1. NIH Osteoporosis and Related Bone Diseases http://www.osteo.org 2. International Society for Clinical Densitometry http://www.iscd.org 3. National Osteoporosis Foundation http://www.nof.org Electronically Signed: Alex Haywood, at 12:31 EDT , Service support ,
== END ==
PROVIDERS: PCP Internal Medicine; Referring Provider Obstetrics & Gynecology; Visit Provider Obstetrics & Gynecology
DX: Z78.0 Asymptomatic menopausal state (principal)
CPT/HCPCS: 77080

== ENCOUNTER → 2021-01-02 09:43 | Outpatient (CLI) | payer MEDICARE, OTHER, SELFPAY ==
[2020-04-26 13:52] VITALS: BMI 33.6
[2020-07-21 11:52] VITALS: BMI 33.6
--- NOTE | 2021-01-02 09:45 | BI_ITS ---
MAMMOGRAPHY - BILATERAL SCREENING REASON FOR EXAM: Female, 70 years old. Routine annual screening examination. PERTINENT HISTORY: Non-contributory. History of prior left stereotactic breast biopsy. TECHNIQUE: Digital bilateral breast shena (3D mammographic acquisition) in the CC and MLO projections. 2-D mediolateral oblique (MLO) and craniocaudad (CC) views of both breasts were obtained. CAD: Full Field Digital Mammography with Computer Added Detection was performed. COMPARISON: Comparison is made with prior study dated 12/31/2019 and 12/26/2018. FINDINGS: Breast Composition: There are scattered areas of fibroglandular density. There are no dominant masses or suspicious calcifications. Stable benign appearing bilateral axillary lymph nodes. A tissue clip marker is seen in a small nodule in the upper lateral portion of the left breast. The nodule measures 3.9 mm. No other significant abnormalities are identified. There has been no significant change since the prior study. BI/SCRN MAMM (CAD)W/SHENA BILAT IMPRESSION: Stable bilateral screening mammogram. Yearly follow-up mammogram recommended. (A) ASSESSMENT CATEGORY: BIRADS Category 2: Benign. A letter regarding these results will be sent to the patient by the facility within 30 days. Approximately 10% of breast cancers are not detected by mammography. A normal mammogram should not delay biopsy of a clinically suspicious abnormality. [id number] Electronically Signed: Alex Haywood MD at 10:40 EST , Service support ,
== END ==
PROVIDERS: PCP Internal Medicine; Referring Provider Obstetrics & Gynecology; Visit Provider Obstetrics & Gynecology
DX: Z12.31 Encounter for screening mammogram for malignant neoplasm of breast (principal)
CPT/HCPCS: 77063; 77067

== ENCOUNTER → 2021-01-03 07:48 | Outpatient (CLI) | payer MEDICARE, OTHER, SELFPAY ==
[2020-07-21 11:52] VITALS: BMI 33.6
[2021-01-03 08:48] LABS: AST(SGOT) 15 U/L (15-37); Alanine Aminotransfer ALT/SGPT 26 U/L (13-56); Albumin, Serum 3.5 g/dL (3.2-5.0); Alkaline Phosphatase 86 U/L (45-117); Cholesterol 178 mg/dL (200); Globulin 4.6 g/dL (2.2-4.2); High Density Lipoprotein 53 mg/dL; Protein, Total 8.1 g/dL (6.4-8.2); Triglycerides 121 mg/dL; Very Low Density Lipoprotein 24 mg/dL (5-40)
== END ==
PROVIDERS: PCP Internal Medicine; Referring Provider Internal Medicine Cardiovascular Disease; Visit Provider Internal Medicine Cardiovascular Disease
DX: E78.5 Hyperlipidemia, unspecified (principal); I25.10 Atherosclerotic heart disease of native coronary artery without angina pectoris
CPT/HCPCS: 36415; 80061; 80076

== ENCOUNTER → 2021-02-21 09:33 | Outpatient (CLI) | payer MEDICARE, OTHER, SELFPAY ==
[2021-02-21 08:57] VITALS: BMI 34.8
[2021-02-21 12:29] LABS: Calcium,Total 9.3 mg/dL (8.5-10.1)
[2021-02-21 12:43] LABS: Vitamin D,25 Hydroxy 95.8 ng/mL
[2021-02-21 12:52] LABS: PTHIN 69.5 pg/mL (18.4-80.1)
[2021-02-23 14:09] LABS: PROEL- Albumin 3.9 g/dL (2.9-4.4); PROEL- Alpha-1 Globulin 0.2 g/dL (0.0-0.4); PROEL- Alpha-2 Globulin 0.5 g/dL (0.4-1.0); PROEL- Beta Globulin 1.2 g/dL (0.7-1.3); PROEL- TOTAL PROTEIN 7.9 g/dL (6.0-8.5)
[2021-02-23 16:09] LABS: Immunofixation Urine Comment: (.)
== END ==
PROVIDERS: PCP Internal Medicine; Referring Provider Internal Medicine Endocrinology, Diabetes & Metabolism; Visit Provider Internal Medicine Endocrinology, Diabetes & Metabolism
DX: E55.9 Vitamin D deficiency, unspecified (principal); M85.80 Other specified disorders of bone density and structure, unspecified site; R77.1 Abnormality of globulin
CPT/HCPCS: 36415; 82306; 82310; 83970; 84165; 86335

== ENCOUNTER → 2021-07-03 09:54 | Outpatient (CLI) | payer MEDICARE, OTHER, SELFPAY ==
[2021-07-03 11:59] LABS: AST(SGOT) 17 U/L (15-37); Alanine Aminotransfer ALT/SGPT 25 U/L (13-56); Albumin, Serum 3.7 g/dL (3.2-5.0); Alkaline Phosphatase 82 U/L (45-117); Cholesterol 200 mg/dL (200); High Density Lipoprotein 48 mg/dL; Protein, Total 8.7 g/dL (6.4-8.2); Triglycerides 125 mg/dL; Very Low Density Lipoprotein 25 mg/dL (5-40)
== END ==
PROVIDERS: PCP Internal Medicine; Referring Provider Internal Medicine Cardiovascular Disease; Visit Provider Internal Medicine Cardiovascular Disease
DX: E78.00 Pure hypercholesterolemia, unspecified (principal); I25.10 Atherosclerotic heart disease of native coronary artery without angina pectoris
CPT/HCPCS: 36415; 80061; 80076

== ENCOUNTER 2022-01-01 12:41 | Emergency (ER) | payer MEDICARE, OTHER, SELFPAY ==
[2022-01-01 12:42] VITALS: BP 125/104; PULSE 99; RESP 16; TEMP 36; O2SAT 98; BMI 32.8
--- NOTE | 2022-01-01 12:47 | EKG12_ITS ---
Test Reason : CP Blood Pressure : / mmHG Vent. Rate : 092 BPM Atrial Rate : 092 BPM P-R Int : 182 ms QRS Dur : 068 ms QT Int : 356 ms P-R-T Axes : 064 025 035 degrees QTc Int : 440 ms Normal sinus rhythm Low voltage QRS (Limb Leads) Confirmed by DANIA OVERTON, AGNES ([id number]), website/blog editor JESSICA MCRAE ([id number]) on 01/02/2022 10:23:14 AM Referred By: ANTONIA Confirmed By:AGNES NAJERA MD
[2022-01-01 13:28] LABS: Absolute Lymphocyte Count 1.35 X10^3/uL (0.83-4.51); Basophil# 0.04 X10^3/uL; Eosinophil# 0.16 X10^3/uL; Hematocrit 39.7 % (37-47); Hemoglobin 13.6 g/dL (12.0-15.0); Lymphocyte # 1.35 X10^3/ul (0.83-4.51); Lymphocyte % 33.8 % (19-41); Mean Corp Hgb Conc 34.3 g/dL (32-36); Mean Corpuscular Hgb 29.3 pg (27.0-32.0); Mean Corpuscular Volume 85.6 fL (81-99); Mean Platelet Vol. 8.8 fl (6.2-12.0); Monocyte# 0.43 X10^3/uL; Monocyte% 10.8 % (0-10); NRBC Flagged by Analyzer 0 % (0-5); Neutrophil % 50.1 % (47-70); Platelet Count 249 K/mm3 (150-450); RBC Distribution Width SD 40.3 fl (35.1-43.9); Red Blood Count 4.64 M/mm3 (4.2-5.4)
[2022-01-01 13:42] LABS: Prothrombin Time (Protime)PT. 12.6 SECONDS (11.7-14.9)
[2022-01-01 13:55] LABS: Anion Gap 5 (5-15); BUN 14 mg/dL (7-18); BUN/Creat Ratio 18.6 RATIO (10-20); Calcium,Total 9.4 mg/dL (8.5-10.1); Chloride 105 mmol/L (98-107); Creatinine, Serum 0.75 mg/dL (0.55-1.02); EST Glomerular Filtration Rate 81 mL/min (>60); Est Glom Filt Rate - Afr Amer 98 mL/min (>60); Estimated Creatinine Clearance 44.56 ml/min; Glucose 127 mg/dL (74-106); Sodium Level 138 mmol/L (136-145); Troponin-I HS 4 pg/mL (3.0-54.0)
--- NOTE | 2022-01-01 14:04 | EDS_ITS ---
HPI History of Present Illness Chief Complaint: Chest Pain Narrative Narrative: 71-year-old female presenting with concern for acid reflux. She states has had this for a long time since she was about 20. She said problems with this repeatedly intermittently. She states she has dyspepsia which is hard to control up. She states that she used to go to the urgent care and will get a green Grasshopper to help and they would mix them up and bring at home with her. She states that she used to see Dr. Bal but has not seen a GI doctor in a long time. Patient was seen in urgent care today where they told her to come to the emergency room. She states that periodically over the years she has come in for a cardiac work-up because she cannot tell the difference between dyspepsia from GERD and possible MD. She states that she thought she was just get a GI cocktail and go home. [facility] Medical History Abnormality of left breast on screening mammogram Cellulitis of left thigh Deep vein thrombophlebitis of right leg (08/01/15) Dyspareunia Essential (primary) hypertension GERD (gastroesophageal reflux disease) Hyperglobulinemia Hyperlipidemia Hypothyroid Hypothyroidism (acquired) Nonobstructive atherosclerosis of coronary artery Old myocardial infarction Osteopenia determined by x-ray Vitamin D deficiency Home Medications folic acid 2 mg PO DAILY@0800 04/26/16 [History Last Taken 08/26/17] multivitamin 1 ea PO DAILY 04/26/16 [History Last Taken 08/26/17] aspirin 81 mg tablet,delayed release 81 mg PO DAILY 04/26/20 [History Last Taken Unknown] levothyroxine 125 mcg tablet 62.5 mcg PO DAILY tab 04/26/20 [History Last Taken Unknown] metaxalone 800 mg tablet 800 mg PO PRN PRN 04/26/20 [History Last Taken Unknown] metoprolol succinate 25 mg tablet,extended release 24 hr 25 mg PO QHS #90 tab 01/02/21 [Rx Last Taken Unknown] famotidine 20 mg tablet 20 mg PO DAILY tab 04/25/21 [History Last Taken Unknown] lorazepam 1 mg tablet 1 mg PO BID PRN #30 tab 10/06/21 [Rx Last Taken Unknown] sulfamethoxazole 800 mg-trimethoprim 160 mg tablet 1 tab PO BID PRN #30 tab 10/06/21 [Rx Last Taken Unknown] amlodipine 5 mg tablet 5 mg PO QHS #90 tab 11/29/21 [Rx Last Taken Unknown] dicyclomine 20 mg PO TID PRN PRN 01/01/22 [History Last Taken Unknown] ondansetron 4 mg PO Q8H PRN #14 tab 01/01/22 [Rx Last Taken Unknown] pantoprazole [Protonix] 40 mg PO DAILY #30 tab 01/01/22 [Rx Last Taken Unknown] Allergy/AdvReac Type Severity Reaction Status Date / Time etodolac Allergy Other Verified 01/01/22 12:44 Iodinated Contrast Media Allergy Hives Verified 01/01/22 12:44 [Iodinated Contrast Media - IV Dye] naproxen [From Naprosyn] Allergy Other Verified 01/01/22 12:44 Penicillins Allergy Hives Verified 01/01/22 12:44 quinine Allergy nausea/vomi Verified 01/01/22 12:44 ting/diarrh ea acetaminophen [From Vicodin] AdvReac Nausea/Vom/ Verified 01/01/22 12:44 Diarrhea ezetimibe [From Zetia] AdvReac nausea/vomi Verified 01/01/22 12:44 ting/diarrh ea hydrocodone bitartrate AdvReac Nausea/Vom/ Verified 01/01/22 12:44 [From Vicodin] Diarrhea oxybutynin chloride AdvReac nausea/vomi Verified 01/01/22 12:44 [From Ditropan] ting/diarrh ea pravastatin sodium AdvReac Pain in Verified 01/01/22 12:44 [From Pravachol] joints rofecoxib [From Vioxx] AdvReac not to Verified 01/01/22 12:44 take d/t MD' simvastatin [From Zocor] AdvReac nausea/vomi Verified 01/01/22 12:44 ting/diarrh ea ANTI INFLAMMATORIES Allergy Other Uncoded 01/01/22 12:44 NEOPRENE Allergy Rash Uncoded 01/01/22 12:44 statins AdvReac Severe Muscle Uncoded 01/01/22 12:44 aches, increased CK benadryl AdvReac Intermediate Anxious Uncoded 01/01/22 12:44 Family History Mother Diabetes Surgical History H/O bladder repair surgery H/O: hysterectomy History of left heart catheterization (09/2012) Hx of knee surgery Social History Smoking Status: Never smoker alcohol intake: never substance use type: does not use caffeine: Yes what type of physical activity do you participate in: walking seatbelt use: always do you feel safe at home: Yes additional social history: Leif- Retired Patient is retired ROS ROS ED Constitutional Constitutional ED: Denies chills or fever(s) Eyes Eyes: Denies blurry vision or change in vision ENT ENT ED: Denies rhinorrhea or sore throat Cardiovascular Cardiovascular: Reports as per HPI Respiratory/Chest Respiratory/Chest: Denies cough or dyspnea Gastrointestinal Gastrointestinal: Reports other Details: Dyspepsia Genitourinary Genitourinary ED: Denies dysuria or hematuria Musculoskeletal Musculoskeletal: Denies arthralgias or myalgias Integumentary Denies Abrasions or rash Neurologic Neurologic: Denies headache(s) or paresthesias EXAM Physical Exam Const Vital Signs: 01/01/22 12:42 01/01/22 12:47 01/01/22 14:09 Temperature 96.8 F L Temperature Source Temporal Pulse Rate 99 93 Respiratory Rate 16 12 Respiratory Effort Respiratory Pattern Blood Pressure 125/104 H 123/72 H Blood Pressure Mean 111 89 Pulse Ox 98 97 Oxygen Delivery Method Room Air Room Air Room Air 01/01/22 14:35 01/01/22 15:00 01/01/22 16:00 Temperature Temperature Source Pulse Rate 82 83 Respiratory Rate 20 H 18 Respiratory Effort Normal Respiratory Pattern Normal Blood Pressure 134/78 H 115/66 Blood Pressure Mean 96 82 Pulse Ox 95 98 Oxygen Delivery Method Room Air Room Air 01/01/22 16:36 Temperature Temperature Source Pulse Rate 67 Respiratory Rate 14 Respiratory Effort Respiratory Pattern Blood Pressure 110/64 Blood Pressure Mean Pulse Ox 97 Oxygen Delivery Method Positive well nourished General Appearance ED: NAD; Negative for pallor HEENT normocephalic Eyes PERRL and EOMs intact bilaterally Resp normal respiratory effort Effort and Inspection: respiratory distress Cardio regular rhythm Rate: tachycardic GI normal to inspection, nondistended, normoactive bowel sounds Neuro oriented x3 and CN's II-XII intact bilaterally Sensorium / Orientation: awake and alert Motor Exam: strength 5/5 throughout Psych mental status grossly normal Skin no rashes or lesions noted and no wounds General Skin Exam: Negative for jaundice or pallor Heart Score History: Slightly/Non-Suspicious ECG: Normal Age: >/= 65 years Risk Factors: >/= 3 Risk Factors or History of CAD Score: 4 MDM MDM MDM Narrative Medical decision making narrative: Forehead patient's biggest concern is of GERD. She was given a GI cocktail and this did improve her symptoms. I did check blood work and her CBC and BMP are unremarkable. High-sensitivity troponin is 4. EKG is sinus rhythm at a ventricular rate of 92 bpm without sign of ischemic change. Patient is a chest x-ray shows no acute cardiopulmonary process and radiologist. On reevaluation the patient states that states she feels much better and is amenable to being discharged home. I did speak with her about referral to GI as she has not seen a GI doctor in a long time. She was amenable to follow-up with Dr. Bonilla. She was placed on a PPI. She states she was started on Carafate today at the urgent care. Patient discharged in stable condition. Impression: 1. GERD Lab Data Attestation: I reviewed the patient's lab results. Labs: Laboratory Results - last 24 hr 01/01/22 01/01/22 01/01/22 13:20 13:20 13:20 WBC 4.0 L RBC 4.64 Hgb 13.6 Hct 39.7 MCV 85.6 MCH 29.3 MCHC 34.3 RDW Std Deviation 40.3 RDW Coeff of Kael 13.0 Plt Count 249 MPV 8.8 Immature Gran % (Auto) 0.300 Neut % (Auto) 50.1 Lymph % (Auto) 33.8 [place] % (Auto) 10.8 H Eos % (Auto) 4.0 Baso % (Auto) 1.0 Absolute Neuts (auto) 2.0 Absolute Lymphs (auto) 1.35 Nucleated RBC % 0 PT 12.6 INR 1.0 Sodium 138 Potassium 4.0 Chloride 105 Carbon Dioxide 28.0 Anion Gap 5 BUN 14 Creatinine 0.75 Estim Creat Clear Calc 44.56 Est GFR (MDRD) Af Amer 98 Est GFR (MDRD) Non-Af 81 BUN/Creatinine Ratio 18.6 Glucose 127 H Calcium 9.4 Troponin I High Sens 4 Radiography Diagnostic Testing: Clinical Impression(s) from Imaging Studies Chest X-Ray 01/01/22 14:56 IMPRESSION: Normal x-ray examination of the chest. Electronically Signed: Reji Aquino MD at 15:06 EST , Discharge Plan Triage Chief Complaint: Chest Pain ED Provider: Enrique Pulido Dx/Rx/DC Orders Instructions: ED Chest Pain, Noncardiac Prescriptions: New pantoprazole [Protonix] 40 mg tablet,delayed release (DR/EC) 40 mg PO DAILY Qty: 30 RF: 0 ondansetron 4 mg tablet,disintegrating 4 mg PO Q8H PRN (Reason: nausea and vomiting) Qty: 14 RF: 0 No Action aspirin [Adult Aspirin Regimen] 81 mg tablet,delayed release (DR/EC) 81 mg PO DAILY RF: 0 levothyroxine 125 mcg tablet 62.5 mcg PO DAILY RF: 0 famotidine 20 mg tablet 20 mg PO DAILY RF: 0 sulfamethoxazole-trimethoprim [Bactrim DS] 800-160 mg tablet 1 tab PO BID PRN (Reason: as needed) Qty: 30 RF: 1 lorazepam 1 mg tablet 1 mg PO BID PRN (Reason: anxiety) Qty: 30 RF: 0 multivitamin 1 EACH tablet 1 ea PO DAILY RF: 0 folic acid 1 MG tablet 2 mg PO DAILY@0800 RF: 0 metaxalone 800 mg tablet 800 mg PO PRN PRN (Reason: Pain) RF: 0 dicyclomine 20 mg tablet 20 mg PO TID PRN PRN (Reason: ABD PAIN) RF: 0 metoprolol succinate 25 mg tablet extended release 24 hr 25 mg PO QHS Qty: 90 RF: 3 amlodipine 5 mg tablet 5 mg PO QHS Qty: 90 RF: 3 Primary Care Provider: Joi Gonzalez Referrals: Joi Gonzalez MD [Primary Care Provider] - Friend,DO Khanh [STAFF PHYSICIAN] - As soon as possible Disposition Disposition: Home, Self Care Discharge Date/Time: 01/01/22 16:36
[2022-01-01 14:09] VITALS: BP 123/72; PULSE 93; RESP 12; O2SAT 97
[2022-01-01] MEDS: Mag Hydrox/Al Hydrox/Simeth 30 ML UDC PO (14:28)
--- NOTE | 2022-01-01 14:56 | RAD_ITS ---
STUDY: X-RAY CHEST REASON FOR EXAM: Female, 71 years old. chest pain TECHNIQUE: Single AP portable view of the chest. COMPARISON: 07/07/2018 FINDINGS: The lungs are clear and expanded. There is no demonstrated pleural abnormality. Normal size heart. Normal mediastinum and rock. Normal visualized pulmonary arteries. Normal visualized aortic arch and descending thoracic aorta. Normal visualized thoracic spine. Normal visualized ribs, clavicles, and shoulders. There is no demonstrated abnormality of the visualized soft tissue structures of the upper abdomen. RAD/Chest 1 View (Portable) IMPRESSION: Normal x-ray examination of the chest. Electronically Signed: Reji Aquino MD at 15:06 EST ,
[2022-01-01 15:00] VITALS: BP 134/78; PULSE 82; RESP 20; O2SAT 95
[2022-01-01 16:00] VITALS: BP 115/66; PULSE 83; RESP 18; O2SAT 98
[2022-01-01 16:36] VITALS: BP 110/64; PULSE 67; RESP 14; O2SAT 97
== END 2022-01-01 16:36 | disposition home or self-care (01) ==
PROVIDERS: Emergency Provider Student in an Organized Health Care Education/Training Program; PCP Internal Medicine; Visit Provider Student in an Organized Health Care Education/Training Program
DX: K21.9 Gastro-esophageal reflux disease without esophagitis (principal); I10 Essential (primary) hypertension; I25.2 Old myocardial infarction; E03.9 Hypothyroidism, unspecified; I25.10 Atherosclerotic heart disease of native coronary artery without angina pectoris; Z86.718 Personal history of other venous thrombosis and embolism; Z79.82 Long term (current) use of aspirin; Z79.899 Other long term (current) drug therapy
CPT/HCPCS: 71045; 80048; 84484; 85025; 85610; 93005; 99285; A4216

== ENCOUNTER 2022-01-03 09:52 | Outpatient (CLI) | payer MEDICARE, OTHER, SELFPAY ==
--- NOTE | 2022-01-03 09:53 | BI_ITS ---
MAMMOGRAPHY - BILATERAL SCREENING REASON FOR EXAM: Female, 71 years old. Routine annual screening examination. PERTINENT HISTORY: Non-contributory. History of prior left stereotactic breast biopsy. TECHNIQUE: Digital bilateral breast shena (3D mammographic acquisition) in the CC and MLO projections. 2-D mediolateral oblique (MLO) and craniocaudad (CC) views of both breasts were obtained. CAD: Full Field Digital Mammography with Computer Added Detection was performed. COMPARISON: Comparison is made with prior study dated 01/02/2021 and 12/31/2019. FINDINGS: Breast Composition: There are scattered areas of fibroglandular density. There are no dominant masses or suspicious calcifications. A tissue clip marker is seen within the T3 0.5 mm nodule in the deep upper lateral aspect of the left breast. Stable small benign-appearing bilateral axillary lymph nodes. No other significant abnormalities are identified. There has been no significant change since the prior study. BI/SCRN MAMM (CAD)W/SHENA BILAT IMPRESSION: Stable bilateral screening mammogram. Yearly follow-up mammogram recommended. (A) ASSESSMENT CATEGORY: BIRADS Category 2: Benign. A letter regarding these results will be sent to the patient by the facility within 30 days. Approximately 10% of breast cancers are not detected by mammography. A normal mammogram should not delay biopsy of a clinically suspicious abnormality. [id number] Electronically Signed: Alex Haywood MD at 10:42 EST ,
== END 2022-01-03 23:59 | disposition home or self-care (01) ==
LOC: OPBI 09:52
PROVIDERS: PCP Internal Medicine; Referring Provider Obstetrics & Gynecology; Visit Provider Obstetrics & Gynecology
DX: Z12.31 Encounter for screening mammogram for malignant neoplasm of breast (principal)
CPT/HCPCS: 77063; 77067

== ENCOUNTER 2022-03-01 07:53 | Day surgery (SDC) | payer MEDICARE, OTHER, SELFPAY ==
[2022-03-01] MEDS: Lactated Ringers 1,000 ML 15 ML IV (08:05)
--- NOTE | 2022-03-01 08:07 | PCM.HP.BLA ---
History and Physical Date of Admission: 03/01/22 NADER AGUILA, is a 71 F who presents to the office today for GERD. Long hx of heartburn, states she goes to ER about once a year for CP when she can't distinguish between heartburn and heart attack. She has been trying famotidine without relief of her symptoms. Some improvement with sucralfate from urgent care.She was sent to the ED recently for chest pain, MD was ruled out, she was treated with GI cocktail with relief, and was started on pantoprazole 40 mg daily. She notes significant improvement in 48 hrs after starting omeprazole, much less heartburn. She has been waking up with heartburn. She thinks her acid reflux flared in the last year due to significant stressors last year, including her son being in a significant accident. Taking dicyclomine for bowel spasms with good relief. No diarrhea, constipation, hematochezia, melena. No dysphagia. Years ago she saw the rn bsn Dr Bal at [facility], she does not recall being treated with PPI; had EGD at that time, she does not recall a diagnosis of Gonzalez's. Had screening colonoscopy 09/2022, polyps removed, told to f/u 5 yrs ROS Const Constitutional: Positive for headache(s) (allergy); No fatigue, fever(s), weight change, sleep problems, abnormal sleep pattern or change in appetite ENT ENT: Positive for headache(s) (allergy); No difficulty swallowing, hoarseness or sore throat Resp Respiratory: No cough, hemoptysis or shortness of breath Cardio Cardiology: No chest pain at rest or generalized swelling Gastro GI: Positive for heartburn; No abdominal pain, belching, bloating, change in bowel habits, change in stool character, coffee ground emesis, constipation, cramping, diarrhea, difficulty swallowing, feeling full early, excessive flatus, incontinent of stools, Vomiting blood/hematemesis, Blood in stool, loose stools, Black,tarry stools, nausea/dyspepsia, pain with swallowing or vomiting Musc Musculoskeletal: Positive for joint pain (knees); No back pain, joint swelling, numbness or tingling Skin Skin: No itchy eyes or rash Neuro Neurology: Positive for headache(s) (allergy); No behavioral changes, confusion, numbness or tingling Psych Psychiatric: No abnormal sleep pattern, Positive for anxiety, No behavioral changes, No change in appetite, No confusion and No depression Endo Endocrine: No cold intolerance, fatigue, heat intolerance, increased thirst/drinking or weight change Aller/Imm Allergy/Immunologic: No food intolerance or itchy eyes Lamonte/Lymp Hematologic/Lymphatic: No easy bleeding, easy bruising or enlarged lymph nodes Exam Const General: cooperative, healthy appearing, comfortable, no acute distress, well developed and well groomed Chest Chest palpation & inspection: normal inspection of the chest Resp Effort & Inspection: normal respiratory effort GI Inspection: normal to inspection Palpation: soft Skin General: no rashes or lesions noted Quality Reporting Tobacco Screening ([facility] 138) Smoking Status: Never smoker Assessment and Plan Assessment and Plan (1) GERD (gastroesophageal reflux disease): Status: Chronic Plan: 71 yr old female with longstanding GERD, flare of heartburn with increased stress this past year. Continue pantoprazole 40 mg daily, continue prn dicyclomine for IBS spasms. She is scheduled for EGD in February. Discussed the need to eval for Gonzalez's. No evident hiatal hernia on CXR. Plan Details Other Medications: Refilled: pantoprazole (Protonix) 40 mg PO DAILY 90 tabs 0RF I have re-examined the patient. There are no clinical changes since date of exam.
[2022-03-01 08:18] VITALS: BP 110/68; PULSE 84; RESP 18; TEMP 36.3; O2SAT 96; BMI 32.8
--- NOTE | 2022-03-01 09:00 | IMM_PTH ---
PATIENT: NADER AGUILA LOC: EN U#:[id number] AGE/SX: 71/F ROOM: RE03/01/[address]: Dr. Khanh Bonilla DO : 1950 BED: DIS: 03/01/2022 SPEC #: [id number] RECD: 03/01/22 12:56 STATUS: NURIA RAUL #: [id number] MARCO ANTONIO: 03/01/22 09:[address]: Khanh Bonilla DEPT: IMMUNOHISTOCHEMISTRY RECD BY: Ailin Martin ENTERED: 03/01/22 12:57 SP TYPE: IMMUNO OTHR DR: Dr. Joi Gonzalez MD Tissues: B - Stomach, NOS Procedures: H Pylori (initial) PHYSICIAN & INSTITUTION [place] [id number] SPECIMEN INFORMATION: Tissue Source: B ? Gastric body, biopsy Clinical Info: GERD Specimen Number: [id number] CPT code: 94354 METHODOLOGY: Deparaffinized sections of prefer/formalin-fixed tissue or PAP/DQ stained slides are incubated with monoclonal/polyclonal antibodies/oligonucleotide probes. Localization is made via biotin free immunoperoxidase method. Appropriate controls are performed and reacted as expected. Results on target cell population are indicated in the following table: RESULTS: ANTIBODY / CLONE RESULT Block B H Pylori (polyclonal) negative These tests were developed and their performance characteristics determined by [facility]. They may not have been cleared or approved by the U.S. Food and Drug Administration. The FDA has determined that such clearance or approval is not necessary. The above immunohistochemical/dualISH markers are ordered and reviewed by the Pathologist. INTERPRETATION: B. Gastric body, biopsy: Negative for Helicobacter pylori organisms. AM:heather 03/02/2022
--- NOTE | 2022-03-01 09:00 | EGD_PTH ---
PATIENT: NADER AGUILA LOC: EN U#:[id number] AGE/SX: 71/F ROOM: RE03/01/[address]: Dr. Khanh Bonilla DO : 1950 BED: DIS: 03/01/2022 SPEC #: [id number] RECD: 03/01/22 10:29 STATUS: NURIA RAUL #: [id number] MARCO ANTONIO: 03/01/22 09:[address]: Khanh Bonilla DEPT: SURGICAL PATHOLOGY RECD BY: Loraine Farias ENTERED: 03/01/22 13:32 SP TYPE: EGD BIOPSY EDITH DR: Dr. Joi Gonzalez MD Tissues: A - Esophagus, NOS B - Gastric mucous membrane C - Duodenum, NOS Procedures: Special Stain Group II Surgery Specimen Level IV Alcian Blue/PAS (control) HEADER OPERATION: EGD ([facility] [place]) PRE-OP DIAGNOSIS: GERD TISSUE SUBMITTED: A ? Distal esophagus biopsy, B ? Gastric body biopsy, C ? Duodenum biopsy MICROSCOPIC DIAGNOSIS A. Distal esophagus, biopsy: Gastroesophageal junctional mucosa with mild chronic inflammation. Focal changes of reflux. No evidence of goblet cell metaplasia. See comment. B. Gastric body, biopsy: Chronic gastritis. See comment. C. Duodenum, biopsy: No pathologic change. AM:heather 03/02/2022 COMMENT A. Alcian blue/PAS stain with matched control supports the above diagnosis. B. The results of immunohistochemistry for Helicobacter pylori will be reported separately ([id number]). MICROSCOPIC DESCRIPTION Slides are reviewed. GROSS DESCRIPTION A - Received in fixative is one container labeled with the patient's name and designated distal esophagus biopsy. The specimen consists of multiple irregular fragments of light atkinson soft tissue that in aggregate measure 1 x 0.6 x 0.1 cm. The specimen is totally submitted in one cassette. B - Received in fixative is one container labeled with the patient's name and designated gastric body biopsy. The specimen consists of one irregular fragment of light atkinson soft tissue that measures 0.5 x 0.3 x 0.1 cm. The specimen is totally submitted in one cassette. C - Received in fixative is one container labeled with the patient's name and designated duodenum biopsy. The specimen consists of multiple irregular fragments of light atkinson soft tissue that in aggregate measure 0.7 x 0.4 x 0.1 cm. The specimen is totally submitted in one cassette. / SJ:rg 03/01/2022 TC:3 CPT: 29405 x3, 33474
[2022-03-01 09:35] VITALS: BP 110/68; BP 115/70; PULSE 91; RESP 16; TEMP 37.1; O2SAT 93
--- NOTE | 2022-03-01 09:38 | OP.EGD_ITS ---
Patient Name: Jo-Ann Forrester Procedure Date: 03/01/2022 9:17 AM Date of : 1950 Age: 71 Procedure: Upper GI endoscopy Indications: Heartburn Providers: Khanh Bonilla DO Medicines: See the Anesthesia note for documentation of the administered medications Patient Profile: This is a 71 year old female. Refer to note in patient chart for documentation of history and physical. Patient has symptoms of chronic heartburn. She is status post EGD for Gonzalez's biopsy within the past three years. Complications: No immediate complications. Procedure: Pre-Anesthesia Assessment: - Prior to the procedure, a History and Physical was performed, and patient medications and allergies were reviewed. The patient is competent. The risks and benefits of the procedure and the sedation options and risks were discussed with the patient. All questions were answered and informed consent was obtained. Patient identification and proposed procedure were verified by the physician in the pre-procedure area. Mental Status Examination: alert and oriented. Airway Examination: normal oropharyngeal airway and neck mobility. Respiratory Examination: clear to auscultation. CV Examination: normal. Prophylactic Antibiotics: The patient does not require prophylactic antibiotics. Prior Anticoagulants: The patient has taken no previous anticoagulant or antiplatelet agents. ASA Grade Assessment: II - A patient with mild systemic disease. After reviewing the risks and benefits, the patient was deemed in satisfactory condition to undergo the procedure. The anesthesia plan was to use moderate sedation / analgesia (conscious sedation). Immediately prior to administration of medications, the patient was re-assessed for adequacy to receive sedatives. The heart rate, respiratory rate, oxygen saturations, blood pressure, adequacy of pulmonary ventilation, and response to care were monitored throughout the procedure. The physical status of the patient was re-assessed after the procedure. After obtaining informed consent, the endoscope was passed under direct vision. Throughout the procedure, the patient's blood pressure, pulse, and oxygen saturations were monitored continuously. The Endoscope was introduced through the mouth, and advanced to the second part of duodenum. The upper GI endoscopy was accomplished without difficulty. The patient tolerated the procedure well. Moderate Sedation: Moderate (conscious) sedation was administered by the endoscopy nurse and supervised by the endoscopist. The patient's oxygen saturation, heart rate, blood pressure and response to care were monitored. Total physician intraservice time was 15 minutes. Scope In: 9:23:27 AM Scope Out: 9:29:38 AM Total Procedure Duration Time 0 hours 6 minutes 11 seconds Findings: LA Grade C (one or more mucosal breaks continuous between tops of 2 or more mucosal folds, less than 75% circumference) esophagitis with no bleeding was found 35 to 40 cm from the incisors. Mucosa was biopsied with a cold forceps for histology in 4 quadrants at intervals of 1 cm in the lower third of the esophagus. One specimen bottle was sent to pathology. Verification of patient identification for the specimen was done. Estimated blood loss was minimal. A medium-sized hiatal hernia was present. Patchy mildly erythematous mucosa without bleeding was found in the gastric body. Biopsies were taken with a cold forceps for histology. Verification of patient identification for the specimen was done. Estimated blood loss was minimal. Patchy moderately erythematous mucosa without active bleeding and with no stigmata of bleeding was found in the duodenal bulb. Biopsies were taken with a cold forceps for histology. Verification of patient identification for the specimen was done. Estimated blood loss was minimal. Impression: - LA Grade C reflux esophagitis. Biopsied. - Medium-sized hiatal hernia. - Erythematous mucosa in the gastric body. Biopsied. - Erythematous duodenopathy. Biopsied. Recommendation: - Discharge patient to home. - Resume previous diet. - Continue present medications. - Await pathology results. - Repeat upper endoscopy in 1 year for surveillance. - Return to GI office. Procedure Code(s): --- Professional --- 46549, Esophagogastroduodenoscopy, flexible, transoral; with biopsy, single or multiple G0500, Moderate sedation services provided by the same physician or other qualified health manager respiratory care performing a gastrointestinal endoscopic service that sedation supports, requiring the presence of an independent trained observer to assist in the monitoring of the patient's level of consciousness and physiological status; initial 15 minutes of intra-service time; patient age 5 years or older (additional time may be reported with 09662, as appropriate) CPT copyright 2017 [employer]. All rights reserved. The codes documented in this report are preliminary and upon inspector fabric review may be revised to meet current compliance requirements. Khanh Bonilla DO 03/01/2022 9:37:41 AM This report has been signed electronically. Number of Addenda: 1 Note Initiated On: 03/01/2022 9:17 AM Addendum Number: 1 Addendum Date: 08/09/2022 6:29:11 AM MAC was used as sedation for this procedure. Khanh Bonilla, 08/09/2022 6:29:15 AM This report has been signed electronically.
--- NOTE | 2022-03-01 09:38 | OP.CCLET_ITS ---
08/09/2022 Joi Gonzalez [address] [place] [address] Re : Upper GI endoscopy procedure for Jo-Ann Forrester Dear Dr. Gonzalez This procedure was performed on February. My impressions and recommendations are as follows: Impressions : - LA Grade C reflux esophagitis. Biopsied. - Medium-sized hiatal hernia. - Erythematous mucosa in the gastric body. Biopsied. - Erythematous duodenopathy. Biopsied. Recommendations : - Discharge patient to home. - Resume previous diet. - Continue present medications. - Await pathology results. - Repeat upper endoscopy in 1 year for surveillance. - Return to GI office. My findings are described in the full procedure note, which is enclosed. If I can be of further assistance, please feel free to contact me at . Sincerely, Khanh Bonilla, 03/01/2022 9:37:41 AM This report has been signed electronically.
[2022-03-01 09:40] VITALS: BP 110/68; BP 114/71; PULSE 89; RESP 16; O2SAT 97
[2022-03-01 09:45] VITALS: BP 109/68; BP 110/68; PULSE 79; RESP 16; O2SAT 96
[2022-03-01 09:50] VITALS: BP 110/68; BP 112/69; PULSE 81; RESP 16; TEMP 36.7; O2SAT 97
[2022-03-01 10:00] VITALS: BP 110/68
== END 2022-03-01 10:18 | disposition home or self-care (01) ==
LOC: EN 07:54 → AC 07:56
PROVIDERS: PCP Internal Medicine; Referring Provider Internal Medicine; Visit Provider Internal Medicine Gastroenterology
PROC: 0DJ08ZZ Inspection of Upper Intestinal Tract, Via Natural or Artificial Opening Endoscopic (ICD-10-PCS; CPT 43235; principal; 2022-03-01 08:55)
DX: K21.00 Gastro-esophageal reflux disease with esophagitis, without bleeding (principal); K29.50 Unspecified chronic gastritis without bleeding; K44.9 Diaphragmatic hernia without obstruction or gangrene; I25.10 Atherosclerotic heart disease of native coronary artery without angina pectoris; I10 Essential (primary) hypertension; E78.5 Hyperlipidemia, unspecified; E03.9 Hypothyroidism, unspecified; F41.9 Anxiety disorder, unspecified; E55.9 Vitamin D deficiency, unspecified; M85.80 Other specified disorders of bone density and structure, unspecified site; M19.90 Unspecified osteoarthritis, unspecified site; Z86.718 Personal history of other venous thrombosis and embolism; Z87.19 Personal history of other diseases of the digestive system; Z78.0 Asymptomatic menopausal state; Z79.899 Other long term (current) drug therapy
CPT/HCPCS: 43239; 88305; 88313; 88342; J7120

== ENCOUNTER 2022-03-02 09:30 | Outpatient (RCR) | payer MEDICARE, OTHER, SELFPAY ==
--- NOTE | 2022-02-07 09:24 | HP.PTEVAL ---
Patient's Visit Information NADER AGUILA is a 71 year old F referred to Physical Therapy by NAOMI Medrano with a diagnosis of L KNEE OA AND R KNEE H/OTKA WITH REVISIONS. Date of Evaluation: 02/07/22 Physical Therapist: Julieta Resendiz PT, Cert MDT - Visit Plan Frequency: 2-3x /Week Duration: 4-6 Weeks Plan: PATIENT WOULD RATHER NOT DO WATER EX UNLESS SHE HAS TO. LEFT KNEE US X 6. DISCUSS POSSIBLE BENEFITS OF STRAIGHT CANE AND IF PATIENT IS AGREEABLE DO GAIT TRAINING. STAIR TRAINING. WRITTEN HEP (PATIENT DOES NOT HAVE A GYM MEMBERSHIP AND DOES NOT PLAN TO GET ONE). DENAE LE ROM, STRETCHING AND STRENGTHENING. 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 WATCHES 2.5 YEAR OLD GRANDDAUGHTER 5 DAYS A WEEK. Present symptoms: LEFT LATERAL KNEE PAIN. ALSO RIGHT KNEE PAIN BUT MOST OF PAIN IS LEFT LATERAL KNEE PAIN. DENAE KNEE STIFFNESS. INTERMITTENT DENAE TOE NUMBNESS. Present since: YEARS. Pain Scale: WORST 7/10, LEAST 3/10. Currently: 3/10. Commenced as a result of: ARTHRITIS. Worse: BEING ON FEET A LOT, PROLONGED SITTING, PROLONGED RIDING IN THE CAR, GETTING IN AND OUT OF THE CAR, GETTING UP AND DOWN FROM A CHAIR, PROLONGED STANDING. Better: ICE, HEAT, GETTING OFF OF FEET. Disturbed sleep: YES. Previous history/Previous treatment: LEFT - ARTHROSCOPIC SX'S A LONG TIME AGO. L KNEE INJECTIONS YEARS AGO. R TKR'S: 2009, 2015 AND 2018. Gait: PATIENT REPORTS SHE FEELS LIKE HER LEFT KNEE IS GOING TO KICK OUT AT TIMES. PATIENT DENIES USE OF AD'S AND DOESN'T FEEL LIKE SHE NEEDS AN AD. DIFFICULTY ON STEPS - GOES BACKWARDS. Difficulty initiating urination: Accidents: FELL OFF BED ABOUT ABOUT A YEAR AGO AND JAMMED L KNEE. Unexplained weight loss: NO. Imaging: STUDY: LEFT KNEE X-RAY SERIES--4 VIEWS OF 1323 HOURS ON 01/31/2022. REASON FOR EXAM: 71-year-old female with left knee pain. TECHNIQUE: 4 view(s) of the knee. COMPARISON: None. FINDINGS: There is no evidence of fractures or dislocations. There is marked. narrowing of the lateral left knee joint with mild to moderate osteophytic. degenerative changes and sclerosis of the adjacent articular surfaces. There is calcification of the medial meniscus. There are moderate. osteophytic degenerative changes of the medial joint space. There are. calcific degenerative changes of the posterior aspect of the distal femur. Patella has a normal appearance. There is mild demineralization. . . RAD/Knee 4 or More Views. IMPRESSION: . 1. No fractures or dislocations. 2. Marked narrowing of the lateral left knee joint with mild to moderate. osteophytic degenerative changes and sclerosis of the adjacent articular. surfaces. 3. Moderate osteophytic degenerative changes of the medial joint space. 4. Degenerative calcification of the medial meniscus. 5. Calcific degenerative changes of the posterior aspect of the distal. femur. 6. Normal patella for age. 7. Mild demineralization. . Electronically Signed: Jacob Posadas MD. at 18:37 EDT. Reading Location ID and State: [address] [place] [address]. Tel , Service support , . . PMH/Recent major surgery: HEART ATTACK IN 2003 DUE TO A MEDICINE SHE WAS TAKING. HYPOTHYROIDISM. 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 NOT CURRENTLY DOING ANY EXERCISES. - Objective GAIT: THIS PATIENT AMBULATES INDEP'LY INTO PT TODAY WITHOUT ANY ASSISTIVE DEVICES BUT WITH DECREASED CADANCE, L LE GENU VALGUS AND WALKING ON SLIGHTLY BENT KNEES. NO LOB. TU.97 SEC. 30 SEC SIT TO STAND TEST: 9 REPS. Girth L Patella 48.5 cm. Girth L 6 inch suprapatella 58.5 cm. Girth R Patella 50 cm. Girth R 6 inch suprapatella 58.5 cm. L knee flexion AROM: 107 d degrees. L knee ext AROM: -6 deg. R knee flexion AROM: 100 deg. R knee ext AROM: -3 degrees. L knee flex Peak Force 17.1. L knee ext Peak Force 10.5. L hip flex Peak Force 17.5. R knee flex Peak Force 15.7. R knee ext Peak Force 12.4. R hip flex Peak Force 18.1. Denae ankle MMT 5/5. Sensory deficit: L LE LIGHT TOUCH SENSATION IS GROSSLY INTACT AND SYMMETRICAL BUT PATIENT DOES DESCRIBE A NUMBING TYPE FEELING IN THE RIGHT KNEE SINCE REPLACEMENTS. Palpation: NO ACUTE TENDERNESS WITH PALPATION OF KNEES. TREATMENT: THER ACT: INSTRUCTED PATIENT TO RE-START THE FOLLOWING EX'S DENAE X 10 REPS, 3X'S A DAY TOLERATED AND TO TRY TO PROGRESS TO 3X10 EA TOLERATED: AP'S, HS'S, QS'S X 5 SEC EA, GS'S X 5 SEC EA, AND SLR'S. PATIENT DEMO'S GOOD EX RETURN TODAY. - Balance/Special Test Scores Lower Extremity Functional Score: 39 TUG Test Time Seconds: 9.97 30 Second Chair Rise Test Seconds: 9 - Goals Goal 1:: DECREASE C/O DENAE KNEE PAIN Goal Time Frame: 4-6 Weeks Goal 2:: PATIENT WILL COMPLETE 12 STANDS IN 30 SECS TO DEMONSTRATE IMPROVED FUNCTIONAL STRENGTH Goal Time Frame: 4-6 Weeks Goal 3:: PATIENT WILL COMPLETE TUG IN 8 SECS TO DEMONSTRATE IMPROVED GAIT STABILITY Goal Time Frame: 4-6 Weeks Goal 4:: PATIENT WILL BE ABLE TO ASCEND AND DESCEND A FLIGHT OF STEPS WITH STEP TO PATTERN AND ONE HANDRAIL Goal Time Frame: 4-6 Weeks Goal 5:: PATIENT WILL BE INDEP WITH A HEP FOR CONTINUED IMPROVEMENT ONCE FORMAL PHYSICAL THERAPY CONCLUDES. Goal Time Frame: 4-6 Weeks - Anticipated Interventions Patient/Client Instruction: Educate patient on: Condition, Plan of Care, Risk Factors For the Purpose of:: To improve self management Therapeutic Exercise to Include: Strength training, Flexibilty training, Gait and locomotor training, Neuromotor development For the Purpose of:: To decrease pain, To increase ROM, To improve muscle performance and motor function, To increase tolerance to activity/condition/position, To improve ability of physical actions for home/community/work/leisure, To improve gait and locomotor functions Cryotherapy (ice pack, ice massage): Yes Thermo therapy (hot pack): Yes Ultrasound (thermal/non thermal): Yes For the Purpose of:: To decrease pain, To decrease swelling/inflammation, To improve nutrient delivery to tissue Thank you for the opportunity to evaluate your patient. For Medicare and Medicare HMO plans, please review the plan of care and approve it. It will need to be FAXED BACK to us at [phone] for Medicare purposes. For Medicare only, by signing this I certify the plan of care. Please let me know if there are questions or concerns regarding this plan of care. Physician Signature: Date:
--- NOTE | 2022-03-02 09:57 | HP.PTDCSUM ---
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 Discharge Date: 03/02/22 Please see the following information for a summary of their discharge status. Subjective: PATIENT REPORTS HER LEFT KNEE ISN'T STIFF SINCE HAVING THERAPY. STATES SHE HAS BEEN DOING HER HEP REGULARLY. REPORTS SHE CAN GET UP AND DOWN BETTER FORM A CHAIR NOW. I FEEL STRONGER IN THAT LEG. left LE Pain Intensity (Out of 10): 3 % Improvement: 60 Objective/Function: PATIENT WAS SEEN TODAY FOR RE-ASSESSMENT OF PROGRESS TOWARD THE SET PT GOALS AND THE NEED FOR FURTHER PHYSICAL THERAPY VS READINESS FOR DISCHARGE. PATIENT HAS MADE GOOD PROGRESS WITH PT AND IS APPROPRIATE FOR D/C TO HEP NOW. SHE ACTUALLY DEMO'S THE ABILITY TO GO UP AND DOWN STEPS RECIP WITH ONE HANDRAIL NOW BUT LESS PAIN COMING DOWN ONE STEP AT A TIME LEADING WITH LEFT AND ADVISED PATIENT TO DO ONE STEP AT A TIME TO HELP MANAGE PAIN AND INFLAMMATION. UPON EXAM TODAY: TU.89 SEC. 30 SEC SIT TO STAND TEST: 13 REPS. Girth L Patella 47cm. Girth L 6 inch suprapatella 58.5 cm. L knee flexion AROM: 114 d degrees. L knee ext AROM: -3 deg. L knee flex Peak Force 21.2. L knee ext Peak Force 18.1. L hip flex Peak Force 17.6. R knee flex Peak Force 19.3. R knee ext Peak Force 21.3. R hip flex Peak Force 18.4. Denae ankle MMT 5/5 Goal 1:: DECREASE C/O DENAE KNEE PAIN Goal Progress: Goal Met Goal 2:: PATIENT WILL COMPLETE 12 STANDS IN 30 SECS TO DEMONSTRATE IMPROVED FUNCTIONAL STRENGTH Goal Progress: Goal Met Goal 3:: PATIENT WILL COMPLETE TUG IN 8 SECS TO DEMONSTRATE IMPROVED GAIT STABILITY Goal Progress: Goal Met Goal 4:: PATIENT WILL BE ABLE TO ASCEND AND DESCEND A FLIGHT OF STEPS WITH STEP TO PATTERN AND ONE HANDRAIL Goal Progress: Goal Met Goal 5:: PATIENT WILL BE INDEP WITH A HEP FOR CONTINUED IMPROVEMENT ONCE FORMAL PHYSICAL THERAPY CONCLUDES. Goal Progress: Goal Met Plan: D/C TO HEP. PATIENT AGREEABLE. If there are questions or concerns regarding this patient's physical therapy, please feel free to call me at [phone]. Thank you for the referral of this patient. Sincerely, Julieta Resendiz, PT, Cert MDT Balance/Gait/Functional tests - Balance/Special Test Scores Lower Extremity Functional Score: 53 TUG Test Time Seconds: 9.97 Tug Test: <10 sec.=free mobile 30 Second Chair Rise Test Seconds: 9
== END 2022-03-02 12:35 | disposition home or self-care (01) ==
LOC: PT 09:30
PROVIDERS: PCP Internal Medicine
DX: M17.12 Unilateral primary osteoarthritis, left knee (principal); Z96.651 Presence of right artificial knee joint
CPT/HCPCS: 97035; 97110; 97162; 97164; 97530

== ENCOUNTER → 2022-04-18 | Outpatient (CLI) | payer MEDICARE, OTHER, SELFPAY ==
[2022-04-18 11:00] LABS: AST(SGOT) 12 U/L (15-37); Alanine Aminotransfer ALT/SGPT 22 U/L (13-56); Albumin, Serum 3.6 g/dL (3.2-5.0); Alkaline Phosphatase 93 U/L (45-117); Bilirubin, Direct 0.16 mg/dL (0.00-0.30); Cholesterol 214 mg/dL (200); Globulin 4.6 g/dL (2.2-4.2); High Density Lipoprotein 44 mg/dL; Protein, Total 8.2 g/dL (6.4-8.2); Triglycerides 175 mg/dL; Very Low Density Lipoprotein 35 mg/dL (5-40)
== END | disposition home or self-care (01) ==
LOC: LAB 09:59
PROVIDERS: PCP Internal Medicine; Referring Provider Internal Medicine Cardiovascular Disease; Visit Provider Internal Medicine Cardiovascular Disease
DX: E78.00 Pure hypercholesterolemia, unspecified (principal)
CPT/HCPCS: 36415; 80061; 80076

== ENCOUNTER → 2022-06-27 | Outpatient (CLI) | payer MEDICARE, OTHER, SELFPAY ==
--- NOTE | 2022-06-27 12:32 | ECHOD_ITS ---
Reason For Study: ASHD Procedure This was a 2D Doppler, Color Flow transthoracic echocardiogram. The study was technically difficult. Exam performed with patient in supine position due to pelvis fractures 05/30/2022. Exam performed in department. Left Ventricle Normal LV size. Left ventricular systolic function is normal. The estimated ejection fraction is 65 %. Stage 1 diastolic dysfunction. No regional wall motion abnormalities noted. Right Ventricle Normal RV size. Normal systolic function. Atria Normal left atrium. Normal right atrium. Mitral Valve Normal mitral valve. Tricuspid Valve Normal tricuspid valve. Mild tricuspid valve insufficiency. Pulmonary artery systolic pressure is 26 mmHg. Aortic Valve Trisinus/trileaflet aortic valve. Pulmonic Valve Normal pulmonic valve. Great Vessels Normal aortic root. The pulmonary artery is normal size. Normal inferior vena cava. Pericardium/Pleural No pericardial effusion. MMode/2D Measurements & Calculations LVIDd: 3.2 cm IVSd: 0.87 cm Ao root diam: 2.7 cm LVIDs: 2.4 cm LVPWd: 2.1 cm RVDd: 2.8 cm FS: 25.4 % LAV(MOD-bp): 34.7 ml LA A4 area: 14.3 cm2 LA dimension(2D): 3.7 cm LAV(MOD-bp) Indexed: 18.0 ml/m2 LAV(MOD-sp2): 32.8 ml LAV(MOD-sp4): 32.3 ml RA A4 area: 13.9 cm2 Time Measurements MV dec time: 0.22 sec Doppler Measurements & Calculations MV E max hakeem: 89.7 cm/sec Lat Peak E' Hakeem: 12.7 cm/sec Med Peak E' Hakeem: 10.9 cm/sec MV A max hakeem: 108.0 cm/sec E/E' lat: 7.1 E/E' med: 8.2 MV E/A: 0.83 MV dec slope: 398.9 cm/sec2 Ao V2 max: 146.5 cm/sec LV V1 max: 111.6 cm/sec Ao max P.6 mmHg LV V1 max P.0 mmHg PA V2 max: 167.0 cm/sec TR max hakeem: 237.9 cm/sec TR max P.6 mmHg ECHO/Echo Complete Interpretation Summary Normal LV size. Left ventricular systolic function is normal. The estimated ejection fraction is 65 %. Stage 1 diastolic dysfunction. Pulmonary artery systolic pressure is 26 mmHg. Ordering Physician: Pattie Prajapati Referring Physician: Joi Gonzalez Performed By: Christina Cornejo RDCS, RVT
== END | disposition home or self-care (01) ==
LOC: CVS 12:31
PROVIDERS: PCP Internal Medicine; Referring Provider Physician Assistant Medical; Visit Provider Physician Assistant Medical
DX: I25.10 Atherosclerotic heart disease of native coronary artery without angina pectoris (principal)
CPT/HCPCS: 93306

== ENCOUNTER 2022-07-23 10:00 | Outpatient (RCR) | payer MEDICARE, OTHER, SELFPAY ==
--- NOTE | 2022-06-06 09:15 | HP.PTEVAL_ITS ---
Patient's Visit Information NADER AGUILA is a 71 year old F referred to Physical Therapy by NAOMI Medrano with a diagnosis of L PUBIC RAMI FRACTURE - DOI 04/26/22. Date of Evaluation: 06/06/22 Physical Therapist: Julieta Resendiz PT, Cert MDT - Visit Plan Frequency: 2-3x /Week Duration: 4-6 Weeks Plan: GAIT AND POSTURE CORRECTION/STRENGTHENING, INSTRUCTION IN APPROPRIATE BODY MECHANICS AND ACTIVITY MODIFICATIONS. DLS WITH NEURTRAL SPINE. DENAE LE ROM, STRETCHING AND STRENGTHENING. HEP INSTRUCTION. - Subjective Work/Leisure: RETIRED. Present symptoms: L LBP, LEFT GROIN PAIN AND LEFT HIP PAIN, LEFT BUTTOCK PAIN. Present since: 04/26/22. Pain Scale: WORST 5/10, LEAST 2/10. Currently: 12/21. Commenced as a result of: FELL GETTING ONTO A HIGH STOOL. Symptoms at onset: IMMEDIATE PAIN IN LEFT HIP AND GROIN AREA AND COULDN'T MOVE RIGHT LEG EITHER WITHOUT SEVERE PAIN. Worse: GETTING UP AND DOWN FROM A CHAIR OR TOLIET, GOING UP AND DOWN STEPS. CAN'T SLEEP ON L SIDE AND CAN ONLY SLEEP ON R SIDE FOR SHORT TIME. Better: SITTING IN LOUNGE CHAIR. Disturbed sleep: YES - HARD TO GET COMFORTABLE TO GO TO SLEEP. USUALLY A SIDE SLEEPER AND CURRENTLY CAN'T SLEEP ON EITHER SIDE. Previous history/Previous treatment: SLEPT IN RECLINER FOR ABOUT 2 WEEKS. ICE AND HEAT. NO PAIN MEDICINE NOW BUT DID FOR 2 WKS. NO PRIORS HIP OR PELVIC FX'S. INTERMITTENT LBP MOSTLY SELF TREATED BUT DID HAVE AN KIT ABOUT 25 YEARS AGO. ALSO SOME CHIROPRACTIC ABOUT 25 YEARS AGO. Coughing/sneezing/straining: POSITIVE. Gait: USING STANDARD WALKER ALL THE TIME IN THE HOUSE AND OUTSIDE. BOWEL OR BLADDER DYSFUNCTION: NO. Accidents: NO. Unexplained weight loss: NO. Imaging: PATIENT REPORTS X-RAY LAST WEEK SHOWED THE FX ISN'T COMPLETELY HEALED YET BUT DOING GOOD. PMH/Recent major surgery: DENAE KNEE OA. 3 R TKR'S - WITH COMPLICAT IONS - INFECTIONS AND CHRONIC PAIN AND SWELLING. HEART ATTACK 2003, HTN. OTHER: PATIENT REPORTS SHE DOES NOT HAVE ANY PHYSICIAN RESTRICTIONS AT THIS POINT. HOME: LIVES IN SPLIT LEVEL HOME WITH . STEPS INTO HOME. - Objective Sitting/Standing Posture: POOR. FH. RS. DECREASED LORDOSIS. Active Correction of posture: NE. Other Observations: THIS PATIENT AMBULATES INDEP'LY INTO PT TODAY WITH STANDARD WALKER. SLOW CADANCE. INDEP TRANSFERS SIT TO STAND AND REVERSE BUT UE DEPENDENT TO DO SO. Sensory deficit: DENAE LE LIGHT TOUCH SENSATION GROSSLY INTACT AND SYMMETRICAL. ROM deficit: VERY TIGHT DENAE GASTROC SOLEUS COMPLEX'S. TIGHT DENAE HS. APROX 25% DECREASED LEFT HIP ROM ALL PLANES COMPARED TO RIGHT AND C/O L GROIN PAIN AT THE END OF THE AVAILABLE ROM WITH TESTING LEFT HIP. Motor deficit: I PROCEEDED CAREFULLY WITH LE MMT'ING AND PATIENT TOLERATED LIGHT TESTING WELL. RIGHT LE: HIP 4-/5, KNEE 4-/5, ANKLE 5/5. L HIP 3+/5, KNEE 4-/5, ANKLE 4/5. Dural Signs: NEGATIVE DENAE LE'S. Lumbar mvmt loss: flex - MOD. ext - MOD. R SG - MOD. L SG - MEGAN. INCREASED C/O L HIP PAIN WITH LEFT SG TESTING. Core strength: POOR. Palpation: L LATERAL HIP TENDERNESS > RIGHT. PATIENT ALSO REPORTS STOMACH SORENESS AND MEDIAL L THIGH SORENESS. OTHER: DENAE ANKLE SWELLING LEFT > RIGHT AND LEFT ANKLE VARUS. - Balance/Special Test Scores Oswestry Low Back Score: 18 - Goals Goal 1:: DECREASE C/O L LOW BACK, HIP, BUTTOCK AND GROIN PAIN Goal Time Frame: 4-6 Weeks Goal 2:: IMPROVE LIFTING, WALKING, STANDING, SLEEP, SOCIAL LIFE, TRAVEL AND HOMEMAKING FUNCTION. Goal Time Frame: 4-6 Weeks Goal 3:: INSTRUCT IN PROPHYLAXIS - Anticipated Interventions Patient/Client Instruction: Educate patient on: Condition, Plan of Care, Risk Factors For the Purpose of:: To improve self management Therapeutic Exercise to Include: Strength training, Balance training, Body mechanics, Postural training, Flexibilty training, Gait and locomotor training, Neuromotor development, Dynamic Lumbar Stabilization For the Purpose of:: To decrease pain, To improve muscle performance and motor function, To increase tolerance to activity/condition/position, To improve ability of physical actions for home/community/work/leisure, To improve gait and locomotor functions Thank you for the opportunity to evaluate your patient. For Medicare and Medicare HMO plans, please review the plan of care and approve it. It will need to be FAXED BACK to us at [phone] for Medicare purposes. For Medicare only, by signing this I certify the plan of care. Please let me know if there are questions or concerns regarding this plan of care. Physician Signature:_ Date:
--- NOTE | 2022-07-02 10:58 | HP.PTREVAL ---
NAOMI Medrano, It has been my pleasure to treat NADER AGUILA over the last 8 visits for L PUBIC RAMI FRACTURE - DOI 04/26/22. Please see the progress note below for an update on the physical therapy plan of care! Subjective: Patient has new order to add lumbar pain and left IT band syndrome. Pain symmetrical lumbar radiates to left buttock hamstrings. Aggravating factors bending, standing impairs ADL's and housework tasks. Alleviating factors resting. No Meds. Coughing/sneezing-. Bowel/bladder -. Patient sleeping on left side aggravates hip. Denies paresthesia/tingling. Objective/Function: POSTURE: bilateral knee valgus mild forward posture. GAIT: reciprocal knee valgus reciprocal pattern slow foster. PALAPTION: left greater trochanter ,left IT band. NEURO: denies paresthesia/tingling ,reflexes L3-4,L4-5,L5-S1 1/3. FLEXABLITY: hamstrings WFL ,piriformis mild tight. LUMBAR ROM: flexion min loss ,extension min loss msode glides min loss. MMT: quads/hams 4/5 ,hip flexion 4-/5,hip abd 4-/5 Plan Plan: CONT WITH POC 2XWEEK FOR 4WEEKS ADD POSTURAL EX',DLS AND MODLATIES NEEDED. GAIT AND POSTURE CORRECTION/STRENGTHENING, INSTRUCTION IN APPROPRIATE BODY MECHANICS AND ACTIVITY MODIFICATIONS. DLS WITH NEURTRAL SPINE. DENAE LE ROM, STRETCHING AND STRENGTHENING. Balance/Gait/Functional tests - Balance/Special Test Scores Oswestry Low Back Score: 19 Goals Goal 1:: DECREASE C/O L LOW BACK, HIP, BUTTOCK AND GROIN PAIN Goal Time Frame: 4-6 Weeks Goal Progress: Progressing Goal 2:: IMPROVE LIFTING, WALKING, STANDING, SLEEP, SOCIAL LIFE, TRAVEL AND HOMEMAKING FUNCTION. Goal Time Frame: 4-6 Weeks Goal Progress: Progressing Goal 3:: INSTRUCT IN PROPHYLAXIS Goal Progress: Progressing Goal 4:: (NEW GOAL) -07/02/22. Patient to demonstrate 60 % improvements with improved function with ADLS and with less pain Goal Time Frame: 4-6 Weeks Goal 5:: (NEW GOAL) -07/02/22. Patient to improve lumbar ROM for function of recovery to pulon shoes Goal Time Frame: 4-6 Weeks Goal 6:: (NEW GOAL) 07/02/22. Patient to improve oswestry score by points to impRove QOL Anticipated Interventions Patient/Client Instruction: Educate patient on: Condition, Plan of Care, Risk Factors For the Purpose of:: To improve self management Therapeutic Exercise to Include: Strength training, Balance training, Body mechanics, Postural training, Flexibilty training, Gait and locomotor training, Neuromotor development, Dynamic Lumbar Stabilization For the Purpose of:: To decrease pain, To improve muscle performance and motor function, To increase tolerance to activity/condition/position, To improve ability of physical actions for home/community/work/leisure, To improve gait and locomotor functions Please do not hesitate to contact me at [phone] by phone or if you have questions or concerns regarding this new plan of care! Sincerely, Riley Rodriguez, PT, Cert MDT, OCS
--- NOTE | 2022-07-23 10:35 | HP.PTDCSUM_ITS ---
It has been my pleasure to treat NADER AGUILA referred by NAOMI Medrano, with the diagnosis of L PUBIC RAMI FRACTURE - DOI 04/26/22 for a total of 12 visit(s). Discharge Date: Please see the following information for a summary of their discharge status. Subjective: PATIENT REPORTS SHE IS DOING EVERYTHING AT HOME AND SHE HAS BEEN FAITHFUL WITH HER EXERCISES. STILL HAVING LOW BACK PAIN AND PRESSURE DOWN TO BUTT CHEEKS AND INTO DENAE GROIN AND LOWER STOMACH REGIONS. INCREASED PAIN WITH PROLONGED STANDING. PAIN RANGES 2-4/10. PATIENT REPORTS SHE OCCASSIONALLY TAKES A TYLONOL BUT THAT IS ALL. SOME INCREASED PAIN PICKING UP 35 LB GRANDDAUGHTER. PATIENT DENIES INCREASED PAIN WITH HEP. STATES SHE NOTICED BEING ABLE TO SLEEP ON LEFT SIDE LAST NIGHT. ALSO ABLE TO INDEP'LY PUT ON SHOES. Left hip Pain Intensity (Out of 10): 3 LOW BACK Pain Intensity (Out of 10): 2 % Improvement: 85 Objective/Function: PATIENT WAS SEEN TODAY FOR RE-ASSESSMENT OF PROGRESS TOWARD THE SET PT GOALS AND THE NEED FOR FURTHER PHYSICAL THERAPY VS READINESS FOR DISCHARGE. PATIENT HAS CONTINUED TO IMPROVE WITH INDEP EX OVER THE LAST 2 WEEKS AND IS INDEP WITH A HEP. SHE IS APPROPRIATE FOR DISCHARGE AND PHYSICIAN RE- CHECK AT THIS TIME. UPON EXAM TODAY: ROM deficit: VERY TIGHT DENAE GASTROC SOLEUS COMPLEX'S. TIGHT DENAE HS. L HIP PROM TO 112 DEG NOW AND PATIENT DENIES PAIN AT THE END OF THE AVAILABLE RANGE WITH TESTING. Motor deficit: RIGHT LE: HIP 5/5, KNEE 4-/5, ANKLE 5/5. L HIP 4/5, KNEE 4-/5, ANKLE 5/5. Dural Signs: NEGATIVE DENAE LE'S. Lumbar mvmt loss: flex - NIL. ext - MOD. R SG - MOD. L SG - MOD. PATIENT DENIES PAIN WITH LUMBAR ROM TESTING ALL PLANES TODAY. Core strength: POOR. OTHER: GAIT HAS NORMALIZED WITHOUT AD. Goal 1:: DECREASE C/O L LOW BACK, HIP, BUTTOCK AND GROIN PAIN Goal Progress: Goal Met Goal 2:: IMPROVE LIFTING, WALKING, STANDING, SLEEP, SOCIAL LIFE, TRAVEL AND HOMEMAKING FUNCTION. Goal Progress: Goal Met Goal 3:: INSTRUCT IN PROPHYLAXIS Goal Progress: Goal Met Goal 4:: (NEW GOAL) -07/02/22. Patient to demonstrate 60 % improvements with improved function with ADLS and with less pain Goal Progress: Goal Met Goal 5:: (NEW GOAL) -07/02/22. Patient to improve lumbar ROM for function of recovery to pulon shoes Goal Progress: Goal Met Goal 6:: (NEW GOAL) 07/02/22. Patient to improve oswestry score by points to impRove QOL Goal Progress: Goal Met Plan: D/C TO INDEP HEP AND PHYSICIAN FOLLOW UP. If there are questions or concerns regarding this patient's physical therapy, please feel free to call me at [phone]. Thank you for the referral of this patient. Sincerely, Julieta Resendiz, PT, Cert MDT Balance/Gait/Functional tests - Balance/Special Test Scores Oswestry Low Back Score: 8 TUG Test Time Seconds: 9 Tug Test: <10 sec.=free mobile 30 Second Chair Rise Test Seconds: 13
== END 2022-07-23 19:00 | disposition home or self-care (01) ==
LOC: PT 10:00
PROVIDERS: PCP Internal Medicine
DX: S32.502D Unspecified fracture of left pubis, subsequent encounter for fracture with routine healing (principal); X58.XXXD Exposure to other specified factors, subsequent encounter; I25.10 Atherosclerotic heart disease of native coronary artery without angina pectoris
CPT/HCPCS: 93306; 97035; 97110; 97162; 97164; 97530

== ENCOUNTER → 2022-10-24 | Outpatient (CLI) | payer MEDICARE, OTHER, SELFPAY ==
--- NOTE | 2022-10-24 14:11 | CT_ITS ---
STUDY: CT MAXILLOFACIAL SINUSES REASON FOR EXAM: Female, 72 years old. FACIAL PAIN RADIATION DOSAGE (If Supplied By Facility): CTDIvol = ( 28.14 ) mGy, DLP = ( 721.57 ) mGycm TECHNIQUE: The patient was scanned in a multi detector CT scanner. High resolution axial imaging was performed without the administration of intravenous contrast material. Sagittal and coronal images were reconstructed. Individualized dose optimization techniques were used for this CT. COMPARISON: None. FINDINGS: FRONTAL SINUSES: Normal aeration, without mucosal inflammatory disease. ETHMOIDAL SINUSES: Normal aeration, without mucosal inflammatory disease. MAXILLARY SINUSES: Normal aeration, without mucosal inflammatory disease. SPHENOIDAL SINUSES: Normal aeration, without mucosal inflammatory disease. There is patency of the bilateral maxillary infundibuli with normal uncinate processes, ethmoid bullae, and hiatus semilunaris. Normal bilateral middle turbinates. Normal bilateral inferior turbinates. Normal midline nasal septum. There is patency of the bilateral nasal airways. The visualized osseous structures are normal. The visualized bilateral orbital contents are normal. CT/Sinus/Facial Bone IMPRESSION: Normal CT examination of the maxillofacial sinuses. Electronically Signed: Alex Haywood MD at 15:17 EST ,
== END | disposition home or self-care (01) ==
LOC: CT 14:10
PROVIDERS: PCP Internal Medicine; Visit Provider Otolaryngology
DX: G50.1 Atypical facial pain (principal)
CPT/HCPCS: 70486

== ENCOUNTER → 2022-12-18 | Outpatient (CLI) | payer MEDICARE, OTHER, SELFPAY ==
[2022-12-18 13:32] LABS: AST(SGOT) 13 U/L (15-37); Alanine Aminotransfer ALT/SGPT 21 U/L (13-56); Albumin, Serum 3.7 g/dL (3.2-5.0); Alkaline Phosphatase 79 U/L (45-117); Bilirubin, Direct 0.15 mg/dL (0.00-0.30); Cholesterol 221 mg/dL (200); Globulin 4.9 g/dL (2.2-4.2); High Density Lipoprotein 48 mg/dL; Protein, Total 8.6 g/dL (6.4-8.2); Triglycerides 183 mg/dL; Very Low Density Lipoprotein 37 mg/dL (5-40)
== END | disposition home or self-care (01) ==
LOC: LAB 09:05
PROVIDERS: PCP Internal Medicine; Referring Provider Internal Medicine Cardiovascular Disease; Visit Provider Internal Medicine Cardiovascular Disease
DX: E78.00 Pure hypercholesterolemia, unspecified (principal)
CPT/HCPCS: 36415; 80061; 80076

== ENCOUNTER → 2023-01-29 | Outpatient (CLI) | payer MEDICARE, OTHER, SELFPAY ==
--- NOTE | 2023-01-29 10:11 | BI_ITS ---
MAMMOGRAPHY - BILATERAL SCREENING REASON FOR EXAM: Female, 72 years old. Routine annual screening examination. PERTINENT HISTORY: Non-contributory. Prior left stereotactic breast biopsy and right breast biopsy. TECHNIQUE: Digital bilateral breast shena (3D mammographic acquisition) in the CC and MLO projections. 2-D mediolateral oblique (MLO) and craniocaudad (CC) views of both breasts were obtained. CAD: Full Field Digital Mammography with Computer Added Detection was performed. COMPARISON: Comparison is made with prior study dated January 03, 2022 and October 02, 2021. FINDINGS: Breast Composition: There are scattered areas of fibroglandular density. There are no dominant masses or suspicious calcifications. Interstitial markers once again seen within a 5 mm nodule in the deep upper outer aspect of the left breast. Stable small benign-appearing bilateral axillary lymph nodes. No other significant abnormalities are identified. There has been no significant change since the prior study. BI/SCRN MAMM (CAD)W/SHENA BILAT IMPRESSION: Stable bilateral screening mammogram. Yearly follow-up mammogram recommended. (A) ASSESSMENT CATEGORY: BIRADS Category 2: Benign. A letter regarding these results will be sent to the patient by the facility within 30 days. Approximately 10% of breast cancers are not detected by mammography. A normal mammogram should not delay biopsy of a clinically suspicious abnormality. [id number] Electronically Signed: Alex Haywood MD at 12:41 EDT ,
--- NOTE | 2023-01-29 10:24 | BD_ITS ---
STUDY: DUAL ENERGY X-RAY ABSORPTIOMETRY / DXA REASON FOR EXAM: Female, 72 years old. Estrogen deficiency TECHNIQUE: Bone Mineral Density (BMD) measurements of lumbar spine and bilateral hips were obtained. COMPARISON: Comparison is made with prior study July 28, 2020. FINDINGS: Lumbar Spine (L1-L4): g/cm2 (0.798) / T-score (-2.0) / Z-score (0.2) Findings are suggestive of osteopenia with a moderate fracture risk. Left Femur Total: g/cm2 (0.782) / T-score (-1.3) / Z-score (0.3) Left Femoral Neck: g/cm2 (0.731) / T-score (-1.1) / Z-score (0.9) Right Femur Total: g/cm2 (0.769) / T-score (-1.4) / Z-score (0.2) Right Femoral Neck: g/cm2 (0.657) / T-score (-1.7) / Z-score (0.2) The T-Scores on the most recent prior examination were: Lumbar Spine (L1-L4): There has been worsening of bone density since the previous examination. Left Femur Total: which represents an improvement of 0.1%. Right Femur Total: which represents a worsening of 0.7%. BD/Dexa Bone Density Study IMPRESSION: The patient is considered osteopenic as outlined below according to World Lei Organization (WHO) criteria with a moderate fracture risk. There has been worsening of bone density since the previous examination. Reference Information: The T-score is the number of standard deviations above or below the standard which is normal for young adults at their peak bone mineral density. The World Health Organization (WHO) interprets the T-scores as follows: Above -1 Normal bone density Between -1 and -2.5 Osteopenia Equal to / or below -2.5 Osteoporosis As a practical clinical guideline, osteopenia may be graded as follows: Mild -1 through -1.5 Moderate -1.6 through -2.0 Severe -2.1 through -2.4 The Z-score is the number of standard deviations above or below age-matched controls. A Z-score of less than -1.5 would be considered abnormal. References: 1. NIH Osteoporosis and Related Bone Diseases www osteo.org 2. International Society for Clinical Densitometry www iscd.org 3. National Osteoporosis Foundation www nof.org Electronically Signed: Alex Haywood MD at 12:36 EDT ,
== END | disposition home or self-care (01) ==
LOC: OPBI 10:09
PROVIDERS: PCP Internal Medicine; Referring Provider Obstetrics & Gynecology; Visit Provider Obstetrics & Gynecology
DX: Z12.31 Encounter for screening mammogram for malignant neoplasm of breast (principal); E28.39 Other primary ovarian failure
CPT/HCPCS: 77063; 77067; 77080

== ENCOUNTER → 2023-04-30 | Outpatient (CLI) | payer MEDICARE, OTHER, SELFPAY ==
[2023-04-30 10:13] LABS: Vitamin D,25 Hydroxy 86.6 ng/mL
[2023-04-30 10:20] LABS: ALB/GLOB Ratio 0.6 RATIO (0.9-2.4); AST(SGOT) 19 U/L (15-37); Alanine Aminotransfer ALT/SGPT 24 U/L (13-56); Albumin, Serum 3.5 g/dL (3.2-5.0); Alkaline Phosphatase 88 U/L (45-117); Anion Gap 5 (5-15); BUN 12 mg/dL (7-18); BUN/Creat Ratio 16.6 RATIO (10-20); Calcium,Total 9.4 mg/dL (8.5-10.1); Chloride 104 mmol/L (98-107); Creatinine, Serum 0.72 mg/dL (0.55-1.02); EST Glomerular Filtration Rate 84 mL/min (>60); Est Glom Filt Rate - Afr Amer 102 mL/min (>60); Globulin 5.5 g/dL (2.2-4.2); Glucose 119 mg/dL (74-106); Potassium 3.9 mmol/L (3.5-5.1); Sodium Level 139 mmol/L (136-145); T4 Free Direct 1.05 ng/dL (0.76-1.46); Thyroid Stim Hormone (TSH) 1.86 uIU/mL (0.358-3.74)
== END | disposition home or self-care (01) ==
LOC: LAB 09:29
PROVIDERS: PCP Internal Medicine; Referring Provider Internal Medicine Endocrinology, Diabetes & Metabolism; Visit Provider Internal Medicine Endocrinology, Diabetes & Metabolism
DX: M85.80 Other specified disorders of bone density and structure, unspecified site (principal); E55.9 Vitamin D deficiency, unspecified; I10 Essential (primary) hypertension; E03.9 Hypothyroidism, unspecified
CPT/HCPCS: 36415; 80053; 82306; 84439; 84443

== ENCOUNTER 2023-05-16 13:52 | Outpatient (CLI) | payer MEDICARE, OTHER, SELFPAY ==
[2023-05-16] MEDS: Zoledronic Acid 5 MG 100 ML 300 MG IV (14:03)
[2023-05-16] MEDS: 0.9% NaCl Peripheral Flush Adult/Peds IV (14:03)
[2023-05-16 14:11] VITALS: BP 135/67; PULSE 74; RESP 16; TEMP 37; O2SAT 96; BMI 34.8
[2023-05-16 14:33] VITALS: BP 123/62; PULSE 73
== END 2023-05-16 13:53 | disposition home or self-care (01) ==
LOC: MEDOUTP 13:54
PROVIDERS: PCP Internal Medicine; Referring Provider Internal Medicine Endocrinology, Diabetes & Metabolism; Visit Provider Internal Medicine Endocrinology, Diabetes & Metabolism
DX: M85.80 Other specified disorders of bone density and structure, unspecified site (principal)
CPT/HCPCS: 96365; A4216; J3489

== ENCOUNTER → 2023-06-27 | Outpatient (CLI) | payer MEDICARE, OTHER, SELFPAY ==
[2023-06-27 14:40] LABS: Lipase 40 U/L (13-75)
== END | disposition home or self-care (01) ==
PROVIDERS: PCP Internal Medicine; Referring Provider Nurse Practitioner Family; Visit Provider Nurse Practitioner Family
DX: R10.10 Upper abdominal pain, unspecified (principal)
CPT/HCPCS: 83690

== ENCOUNTER → 2023-07-24 | Outpatient (CLI) | payer MEDICARE, OTHER, SELFPAY ==
[2023-07-24 14:51] LABS: Erythrocyte Sedimentation Rate 18 mm/hr (0-30)
[2023-07-24 15:19] LABS: CRP < 2.90 mg/L (0.0-3.0)
[2023-07-30 00:06] LABS: Beef <0.10 kU/L (Class 0); Chocolate <0.10 kU/L (Class 0); Clam <0.10 kU/L (Class 0); Codfish <0.10 kU/L (Class 0); Corn <0.10 kU/L (Class 0); Egg, White 0.41 kU/L (Class I); Milk (Cow) 0.54 kU/L (Class I); Peanut <0.10 kU/L (Class 0); Pork <0.10 kU/L (Class 0); SCALLOP <0.10 kU/L (Class 0); SESAME SEED <0.10 kU/L (Class 0); Shrimp <0.10 kU/L (Class 0); Soybean <0.10 kU/L (Class 0); Walnut, (Food) <0.10 kU/L (Class 0); Wheat <0.10 kU/L (Class 0)
== END | disposition home or self-care (01) ==
LOC: LAB 14:06
PROVIDERS: PCP Internal Medicine; Referring Provider Internal Medicine Gastroenterology; Visit Provider Internal Medicine Gastroenterology
DX: K29.70 Gastritis, unspecified, without bleeding (principal); K20.90 Esophagitis, unspecified without bleeding
CPT/HCPCS: 36415; 85652; 86003; 86005; 86140

== ENCOUNTER → 2023-12-23 | Outpatient (CLI) | payer MEDICARE, OTHER, SELFPAY | END | disposition home or self-care (01) | LOC: LABSPEC 15:29 | PROVIDERS: PCP Internal Medicine; Referring Provider Otolaryngology Otolaryngology/Facial Plastic Surgery; Visit Provider Otolaryngology Otolaryngology/Facial Plastic Surgery | DX: J32.9 Chronic sinusitis, unspecified (principal) | CPT/HCPCS: 87070; 87205 ==

== ENCOUNTER 2024-01-02 14:18 | Emergency (ER) | payer MEDICARE, OTHER, SELFPAY ==
[2024-01-02 14:19] VITALS: BP 183/91; PULSE 103; RESP 17; TEMP 36.6; O2SAT 96; BMI 34.0
--- NOTE | 2024-01-02 14:34 | RAD_ITS ---
STUDY: X-RAY CHEST REASON FOR EXAM: Female, 73 years old. Chest pain TECHNIQUE: PA and lateral views of the chest. COMPARISON: Comparison is made with prior study dated January 01, 2022. FINDINGS: EKG electrodes are seen. The lungs are clear and expanded. There is no demonstrated pleural abnormality. Normal size heart. Normal mediastinum and rock. Normal visualized pulmonary arteries. There is atherosclerotic calcification of the aortic arch with tortuosity. There are diffuse degenerative changes of the visualized thoracic spine. Normal visualized ribs, clavicles, and shoulders. There is no demonstrated abnormality of the visualized soft tissue structures of the upper abdomen. RAD/Chest PA and Lateral IMPRESSION: No acute abnormality is seen. Electronically Signed: Alex Haywood MD at 15:25 EST ,
--- NOTE | 2024-01-02 14:34 | EKG12_ITS ---
Test Reason : CP Blood Pressure : / mmHG Vent. Rate : 091 BPM Atrial Rate : 091 BPM P-R Int : 166 ms QRS Dur : 078 ms QT Int : 368 ms P-R-T Axes : 038 008 018 degrees QTc Int : 452 ms Normal sinus rhythm Normal ECG Confirmed by TREASURE OVERTON, BALJIT ([id number]), video editor JESSICA MCRAE ([id number]) on 01/03/2024 1:04:31 PM Referred By: Confirmed By:BALJIT AMANDA MD
--- NOTE | 2024-01-02 14:38 | ED.VIS.CHEST ---
HPI <NAOMI Sampson - Last Filed: 01/02/24 18:06> History of Present Illness Chief Complaint: Chest Pain Narrative Narrative: Patient presenting today due to left-sided intermittent chest pressure that she has had since yesterday. She reports that she has a history of IBS and has felt more gassy over the past 2 days, has been having increased loose bowel movements, gurgling noises in her stomach, and burping. She has had some mild upper abdominal discomfort since yesterday. She thought that maybe her IBS or GERD is causing her chest discomfort and she has been taking Bentyl with some improvement of her symptoms. She reports a history of CAD and wanted to be sure that this was not something cardiac. PMH includes CAD, hypertension, hyperlipidemia, and IBS. She does follow with Dr. Amanda and cardiology. She denies any fevers, chills, shortness of breath, nausea, and vomiting. PFSH <NAOMI Sampson - Last Filed: 01/02/24 18:06> [facility] Medical History Abnormality of left breast on screening mammogram Arthritis Cardiology follow-up encounter Cellulitis of left thigh Deep vein thrombophlebitis of right leg (08/01/15) DVT (deep venous thrombosis) Dyspareunia Essential (primary) hypertension Gastric reflux GERD (gastroesophageal reflux disease) High cholesterol History of echocardiogram History of edema History of heart attack History of IBS History of irregular heartbeat History of stress test History of ulceration Hyperglobulinemia Hyperlipidemia Hypertension Hypothyroid Hypothyroidism (acquired) Leg cramps Migraine headache Non-smoker Nonobstructive atherosclerosis of coronary artery Old myocardial infarction Osteopenia determined by x-ray Pelvic fracture Post-menopausal Shortness of breath on exertion Thyroid disease Vitamin D deficiency Wears glasses Home Medications folic acid 1 mg tablet 2 mg PO DAILY@0800 SUPPLEMENT 04/26/16 [History Last Taken 08/26/17] multivitamin 1 ea PO DAILY SUPPLEMENT 04/26/16 [History Last Taken 02/25/22] aspirin 81 mg tablet,delayed release (Adult Aspirin Regimen) 81 mg PO DAILY 04/26/20 [History Last Taken 02/25/22] levothyroxine 125 mcg tablet 62.5 mcg PO DAILY 04/26/20 [History Last Taken Unknown] metaxalone 800 mg tablet 800 mg PO PRN PRN Pain #30 tabs 07/25/22 [Rx Last Taken Unknown] pantoprazole 40 mg tablet,delayed release 40 mg PO DAILY #90 tabs 07/24/23 [Rx Last Taken Unknown] amlodipine 5 mg tablet 5 mg PO QHS BP #90 tabs 08/28/23 [Rx Last Taken Unknown] metoprolol succinate 25 mg tablet,extended release 24 hr See Rx Instructions .Route .COMPLEX #90 tabs 08/28/23 [Rx Last Taken Unknown] zoledronic acid 5 mg/100 mL in mannitol 5 %-water intravenous piggybck 1 ea .Route ONCE 08/28/23 [History Last Taken Unknown] sulfamethoxazole 800 mg-trimethoprim 160 mg tablet (Bactrim DS) 1 tab PO BID PRN as needed #30 tabs 11/12/23 [Rx Last Taken Unknown] Allergy/AdvReac Type Severity Reaction Status Date / Time Penicillins Allergy Severe Swelling Verified 01/02/24 14:22 NSAIDS (Non-Steroidal Allergy Other Verified 01/02/24 14:22 Anti-Inflamma Eclemwh-VJV-FzF Reductase AdvReac Severe Other Verified 01/02/24 14:22 Inhibitor diphenhydramine AdvReac Intermediate ANXIOUS Verified 01/02/24 14:22 [From Benadryl] Environmental Allergies: AdvReac Rash Verified 01/02/24 14:22 Uncoded ezetimibe [From Zetia] AdvReac nausea/vomi Verified 01/02/24 14:22 ting/diarrh ea hydrocodone bitartrate AdvReac Nausea/Vom/ Verified 01/02/24 14:22 [From Vicodin] Diarrhea oxybutynin chloride AdvReac nausea/vomi Verified 01/02/24 14:22 [From Ditropan] ting/diarrh ea pravastatin sodium AdvReac Pain in Verified 01/02/24 14:22 [From Pravachol] joints rofecoxib [From Vioxx] AdvReac not to Verified 01/02/24 14:22 take d/t SD' simvastatin [From Zocor] AdvReac nausea/vomi Verified 01/02/24 14:22 ting/diarrh ea Family History Mother Diabetes Surgical History H/O bladder repair surgery H/O: hysterectomy History of cardiac catheterization History of carpal tunnel surgery of right wrist History of left heart catheterization (09/2012) Hx of knee surgery Hx of tonsillectomy Hx of tubal ligation Social History Smoking Status: Never smoker alcohol intake: never substance use type: does not use caffeine: Yes what type of physical activity do you participate in: walking seatbelt use: always do you feel safe at home: Yes additional social history: Le[employer]- Retired Patient is retired ROS <NAOMI Sampson - Last Filed: 01/02/24 18:06> ROS ED Constitutional Constitutional ED: Denies chills or fever(s) Cardiovascular Cardiovascular: Reports chest pain; Denies palpitations Respiratory/Chest Respiratory/Chest: Denies cough or dyspnea Gastrointestinal Gastrointestinal: Denies abdominal pain, nausea or vomiting Musculoskeletal Musculoskeletal: Denies arthralgias or myalgias Integumentary Denies rash Neurologic Neurologic: Denies weakness EXAM <NAOMI Sampson - Last Filed: 01/02/24 18:06> Physical Exam Const Vital Signs: 01/02/24 14:19 01/02/24 15:18 01/02/24 16:00 Temperature 97.8 F Temperature Source Oral Pulse Rate 103 H 87 87 Respiratory Rate 17 21 H 23 H Blood Pressure 183/91 H 152/123 H 121/77 H Blood Pressure Mean 121 132 91 Pulse Ox 96 93 94 Oxygen Delivery Method Room Air Room Air Room Air 01/02/24 17:45 Temperature 97.8 F Temperature Source Pulse Rate 85 Respiratory Rate 17 Blood Pressure 112/91 H Blood Pressure Mean 98 Pulse Ox 95 Oxygen Delivery Method Positive well nourished, well developed and no apparent distress General Appearance ED: well developed HEENT Reports normocephalic and head/scalp atraumatic Mouth ED: Yes moist mucous membranes normal Eyes PERRL and EOMs intact bilaterally Neck full ROM and supple Chest Wall inspection of chest normal and palpation of chest normal Resp normal respiratory effort and clear to auscultation bilaterally Cardio regular rate and regular rhythm GI soft to palpation, non-tender, non-distended and no masses Back/Spine normal ROM and normal to inspection Extremity normal to inspection and full ROM Neuro oriented x3, CN's II-XII intact bilaterally, moves all extremities, no focal motor deficits and no sensory deficits noted Sensorium / Orientation: awake and alert Psych mental status grossly normal and thought process normal Skin no rashes or lesions noted and no wounds <Dr. Gildardo Abbasi MD - Last Filed: 01/02/24 19:10> Physical Exam Const Vital Signs: 01/02/24 14:19 01/02/24 15:18 01/02/24 16:00 Temperature 97.8 F Temperature Source Oral Pulse Rate 103 H 87 87 Respiratory Rate 17 21 H 23 H Blood Pressure 183/91 H 152/123 H 121/77 H Blood Pressure Mean 121 132 91 Pulse Ox 96 93 94 Oxygen Delivery Method Room Air Room Air Room Air 01/02/24 17:45 Temperature 97.8 F Temperature Source Pulse Rate 85 Respiratory Rate 17 Blood Pressure 112/91 H Blood Pressure Mean 98 Pulse Ox 95 Oxygen Delivery Method MDM <NAOMI Sampson - Last Filed: 01/02/24 18:06> [facility] Narrative Medical decision making narrative: Patient presenting due to left-sided chest discomfort that started yesterday. She is well-appearing and in no acute distress. Initially is hypertensive but this did not improve. Her chest discomfort symptoms did improve after taking Bentyl. However, given her cardiac history she wanted to be sure that this was not something that is cardiac in nature. She last had a echocardiogram in September 2022, this showed an EF of 65%. Last stress test was in 2018 and was normal. Low Wells score, low suspicion for PE. Cardiac labs were obtained and overall are unremarkable. She did request a GI cocktail and states that that has helped her in the past when she has had similar symptoms. This was given. She has been given strict return instructions and will be discharged home in stable condition. She is comfortable with plan. I have personally performed a face to face assessment of the patient and have reviewed the ADWOA Note. I performed a substantive portion of the visit including all aspects of the following. My law findings include: History is remarkable for multiple episodes of left-sided chest pressure. First episode occurred at rest at 1600. There is no associated symptoms or radiation. This lasted about 1 hour. She had a second episode yesterday at around 2200. No associated symptoms no radiation and lasted about an hour. Both episodes improved/resolved after she took Bentyl. She states this morning she awoke at approximately 0715. At 0830 she developed left-sided chest pressure again. There is no associated symptoms no radiation. She took a Bentyl. She had an additional episode 1130 and 130. She took Bentyl at 130. She feels the discomfort is getting better. None of these episodes occurred with activity. They all occurred at rest. She does have history of coronary disease with SD in 2003. She is on medicine for cholesterol and hypertension. She also has history of GERD. Denies black or maroon-colored stool. She states she has her bed elevated because of GERD. She denies black or maroon-colored stool. She is never had anything to drink or smoke. 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 Patient states the pain starts in her lower abdomen and moves upward and settles left side of her chest. Exam is unremarkable. Blood pressure is elevated 183/91. Patient appears in no distress. HEENT exam is unremarkable. Lungs are clear to auscultation with symmetric breath sounds. Heart is regular. Rate is normal. There is no murmur, gallop or rub. There is no reproducible chest pain. There is no left or right upper quadrant pain. Inspection of the back is normal. Lower extremity exam is unremarkable. There is no asymmetry, swelling, discoloration, leg vein distention, palpable cords or tenderness along the distribution of the deep venous system. Medical Decision Making differential would be cardiac versus noncardiac. Noncardiac would include pulmonary, pancreatitis GERD most likely. Other additions or changes: [None] Lab Data Attestation: I reviewed the patient's lab results. Labs: Laboratory Results - last 24 hr 01/02/24 14:29 WBC 5.4 RBC 4.95 Hgb 14.3 Hct 42.8 MCV 86.5 MCH 28.9 MCHC 33.4 RDW Std Deviation 39.2 RDW Coeff of Kael 12.5 Plt Count 237 MPV 9.8 Immature Gran % (Auto) 0.200 Neut % (Auto) 43.7 L Lymph % (Auto) 41.6 H [place] % (Auto) 10.0 Eos % (Auto) 3.9 Baso % (Auto) 0.6 Absolute Neuts (auto) 2.4 Absolute Lymphs (auto) 2.24 Nucleated RBC % 0 Sodium 139 Potassium 3.7 Chloride 106 Carbon Dioxide 27.0 Anion Gap 6 BUN 13 Creatinine 0.82 Estim Creat Clear Calc 68.76 Est GFR (MDRD) Af Amer 87 Est GFR (MDRD) Non-Af 72 BUN/Creatinine Ratio 15.8 Glucose 112 H Calcium 9.3 Troponin I High Sens 6 Radiography Diagnostic Testing: Clinical Impression(s) from Imaging Studies Chest X-Ray 01/02/24 14:34 IMPRESSION: No acute abnormality is seen. Electronically Signed: Alex Haywood MD at 15:25 EST , EKG Initial EKG: Comments: 91 bpm, normal sinus rhythm, no ST elevation, no signs of cardiac ischemia, reviewed and interpreted by attending ED physician. <Dr. Gildardo Abbasi MD - Last Filed: 01/02/24 19:10> [facility] Narrative Medical decision making narrative: I have personally performed a face to face assessment of the patient and have reviewed the ADWOA Note. I performed a substantive portion of the visit including all aspects of the following. My law findings include: History is remarkable for multiple episodes of left-sided chest pressure. First episode occurred at rest at 1600. There is no associated symptoms or radiation. This lasted about 1 hour. She had a second episode yesterday at around 2200. No associated symptoms no radiation and lasted about an hour. Both episodes improved/resolved after she took Bentyl. She states this morning she awoke at approximately 0715. At 0830 she developed left-sided chest pressure again. There is no associated symptoms no radiation. She took a Bentyl. She had an additional episode 1130 and 130. She took Bentyl at 130. She feels the discomfort is getting better. None of these episodes occurred with activity. They all occurred at rest. She does have history of coronary disease with SD in 2003. She is on medicine for cholesterol and hypertension. She also has history of GERD. Denies black or maroon-colored stool. She states she has her bed elevated because of GERD. She denies black or maroon-colored stool. She is never had anything to drink or smoke. 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 Patient states the pain starts in her lower abdomen and moves upward and settles left side of her chest. Exam is unremarkable. Blood pressure is elevated 183/91. Patient appears in no distress. HEENT exam is unremarkable. Lungs are clear to auscultation with symmetric breath sounds. Heart is regular. Rate is normal. There is no murmur, gallop or rub. There is no reproducible chest pain. There is no left or right upper quadrant pain. Inspection of the back is normal. Lower extremity exam is unremarkable. There is no asymmetry, swelling, discoloration, leg vein distention, palpable cords or tenderness along the distribution of the deep venous system. Medical Decision Making differential would be cardiac versus noncardiac. Noncardiac would include pulmonary, pancreatitis GERD most likely. Other additions or changes: [None] Lab Data Lab results narrative: CBC is remarkable for lymphocytosis. Basic metabolic panel is unremarkable. Glucose is 112. First troponin is 6. Labs: Laboratory Results - last 24 hr 01/02/24 14:29 WBC 5.4 RBC 4.95 Hgb 14.3 Hct 42.8 MCV 86.5 MCH 28.9 MCHC 33.4 RDW Std Deviation 39.2 RDW Coeff of Kael 12.5 Plt Count 237 MPV 9.8 Immature Gran % (Auto) 0.200 Neut % (Auto) 43.7 L Lymph % (Auto) 41.6 H [place] % (Auto) 10.0 Eos % (Auto) 3.9 Baso % (Auto) 0.6 Absolute Neuts (auto) 2.4 Absolute Lymphs (auto) 2.24 Nucleated RBC % 0 Sodium 139 Potassium 3.7 Chloride 106 Carbon Dioxide 27.0 Anion Gap 6 BUN 13 Creatinine 0.82 Estim Creat Clear Calc 68.76 Est GFR (MDRD) Af Amer 87 Est GFR (MDRD) Non-Af 72 BUN/Creatinine Ratio 15.8 Glucose 112 H Calcium 9.3 Troponin I High Sens 6 Radiography Chest X-Ray - ED: 2 View, Read by ED Physician (Interpreted by [id number].), Unchanged, Normal, Heart, Lungs, Mediastinum, Bony Structures and No Acute Disease Diagnostic Testing: Clinical Impression(s) from Imaging Studies Chest X-Ray 01/02/24 14:34 IMPRESSION: No acute abnormality is seen. Electronically Signed: Alex Haywood MD at 15:25 EST , Discharge Plan Triage Chief Complaint: Chest Pain ED Midlevel Provider: Betsy Trujillo ED Provider: Gildardo Abbasi Dx/Rx/DC Orders Clinical Impression: History of IBS, Chest pain, GERD (gastroesophageal reflux disease) Instructions: ED Chest Pain, Uncertain Cause Prescriptions: No Action aspirin [Adult Aspirin Regimen] 81 mg tablet,delayed release (DR/EC) 81 mg PO DAILY levothyroxine 125 mcg tablet 62.5 mcg PO DAILY metaxalone 800 mg tablet 800 mg PO PRN PRN (Reason: Pain) Qty: 30 0RF pantoprazole 40 mg tablet,delayed release (DR/EC) 40 mg PO DAILY Qty: 90 9RF zoledronic dnxn-lewjivdi-jbrqe 5 mg/100 mL piggyback 1 ea .Route ONCE Patient Comments: once a year Rx Instructions: onceinfuse over 20 minutes metoprolol succinate 25 mg tablet extended release 24 hr See Rx Instructions .ROUTE .COMPLEX Qty: 90 3RF Dose Instruction: TAKE 1 TABLET BY MOUTH AT BEDTIME FOR BLOOD PRESSURE Rx Instructions: TAKE 1 TABLET BY MOUTH AT BEDTIME FOR BLOOD PRESSURE amlodipine 5 mg tablet 5 mg PO QHS Qty: 90 3RF multivitamin 1 EACH tablet 1 ea PO DAILY folic acid 1 MG tablet 2 mg PO DAILY@0800 sulfamethoxazole-trimethoprim [Bactrim DS] 800-160 mg tablet 1 tab PO BID PRN (Reason: as needed) Qty: 30 1RF Patient Comments: BLADDER INFECTIONS-KEEPS ON HAND Primary Care Provider: Joi Gonzalez Referrals: Joi Gonzalez MD [Primary Care Provider] - 3-5 Days Activity Restrictions/Additional Instructions: Follow-up with PCP, return for any worsening of your symptoms. Disposition Disposition: Home, Self Care Discharge Date/Time: 01/02/24 17:49
[2024-01-02 14:55] LABS: Absolute Lymphocyte Count 2.24 X10^3/uL (0.83-4.51); Absolute Neutrophil Count 2.4 X10^3/uL (2.0-7.7); Basophil# 0.03 X10^3/uL; Basophil% 0.6 % (0-1); Eosinophil# 0.21 X10^3/uL; Eosinophils% 3.9 % (0-5); Hematocrit 42.8 % (37-47); Hemoglobin 14.3 g/dL (12.0-15.0); Lymphocyte # 2.24 X10^3/ul (0.83-4.51); Lymphocyte % 41.6 % (19-41); Mean Corp Hgb Conc 33.4 g/dL (32-36); Mean Corpuscular Hgb 28.9 pg (27.0-32.0); Mean Corpuscular Volume 86.5 fL (81-99); Mean Platelet Vol. 9.8 fl (6.2-12.0); Monocyte# 0.54 X10^3/uL; NRBC Flagged by Analyzer 0 % (0-5); Neutrophil # 2.36 X10^3/uL (2.7-7.7); Neutrophil % 43.7 % (47-70); Platelet Count 237 K/mm3 (150-450); RBC Distribution Width CV 12.5 % (11.6-14.6); RBC Distribution Width SD 39.2 fl (35.1-43.9); Red Blood Count 4.95 M/mm3 (4.2-5.4); White Blood Count 5.4 K/mm3 (4.4-11.0)
[2024-01-02 15:11] LABS: Anion Gap 6 (5-15); BUN 13 mg/dL (7-18); BUN/Creat Ratio 15.8 RATIO (10-20); Calcium,Total 9.3 mg/dL (8.5-10.1); Chloride 106 mmol/L (98-107); Creatinine, Serum 0.82 mg/dL (0.55-1.02); EST Glomerular Filtration Rate 72 mL/min (>60); Est Glom Filt Rate - Afr Amer 87 mL/min (>60); Estimated Creatinine Clearance 68.76 ml/min; Glucose 112 mg/dL (74-106); Potassium 3.7 mmol/L (3.5-5.1); Sodium Level 139 mmol/L (136-145); Troponin-I HS 6 pg/mL (3.0-54.0)
[2024-01-02 15:18] VITALS: BP 152/123; PULSE 87; RESP 21; O2SAT 93
[2024-01-02 16:00] VITALS: BP 121/77; PULSE 87; RESP 23; O2SAT 94
[2024-01-02] MEDS: Mag Hydrox/Al Hydrox/Simeth 30 ML UDC PO (17:43)
[2024-01-02 17:45] VITALS: BP 112/91; PULSE 85; RESP 17; TEMP 36.6; O2SAT 95
== END 2024-01-02 17:49 | disposition home or self-care (01) ==
PROVIDERS: Physician Assistant; Emergency Provider Emergency Medicine; PCP Internal Medicine; Visit Provider Emergency Medicine
DX: R07.9 Chest pain, unspecified (principal); K21.9 Gastro-esophageal reflux disease without esophagitis; I25.10 Atherosclerotic heart disease of native coronary artery without angina pectoris; I25.2 Old myocardial infarction; Z86.718 Personal history of other venous thrombosis and embolism
CPT/HCPCS: 71046; 80048; 84484; 85025; 93005; 99284; A4216

== ENCOUNTER → 2024-01-28 | Outpatient (CLI) | payer MEDICARE, OTHER, SELFPAY ==
[2024-01-30 16:10] LABS: Anti-Parietal Cell AB, QN 2.3 Units (0.0-20.0); Gastrin, Serum 26 pg/mL (0-115)
== END | disposition home or self-care (01) ==
PROVIDERS: PCP Internal Medicine; Referring Provider Internal Medicine Gastroenterology; Visit Provider Internal Medicine Gastroenterology
DX: K29.70 Gastritis, unspecified, without bleeding (principal); K21.00 Gastro-esophageal reflux disease with esophagitis, without bleeding
CPT/HCPCS: 36415; 82941; 83516; 86340

== ENCOUNTER → 2024-01-31 | Outpatient (CLI) | payer MEDICARE, OTHER, SELFPAY ==
--- NOTE | 2024-01-31 09:00 | BI_ITS ---
MAMMOGRAPHY - BILATERAL SCREENING REASON FOR EXAM: Female, 73 years old. Routine annual screening examination. PERTINENT HISTORY: Non-contributory. Prior left stereotactic breast biopsy. TECHNIQUE: Digital bilateral breast shena (3D mammographic acquisition) in the CC and MLO projections. 2-D mediolateral oblique (MLO) and craniocaudad (CC) views of both breasts were obtained. CAD: Full Field Digital Mammography with Computer Added Detection was performed. COMPARISON: Comparison is made with prior study dated January 29, 2023 and January 03, 2022. FINDINGS: Breast Composition: There are scattered areas of fibroglandular density. There are no dominant masses or suspicious calcifications. A tissue clip marker is once again seen within a 5 mm nodule in the deep upper outer aspect of the left breast. Stable bilateral axillary lymph nodes. No other significant abnormalities are identified. There has been no significant change since the prior study. BI/SCRN MAMM (CAD)W/SHENA BILAT IMPRESSION: Stable bilateral screening mammogram. Yearly follow-up mammogram recommended. (A) ASSESSMENT CATEGORY: BIRADS Category 2: Benign. A letter regarding these results will be sent to the patient by the facility within 30 days. Approximately 10% of breast cancers are not detected by mammography. A normal mammogram should not delay biopsy of a clinically suspicious abnormality. [id number] Electronically Signed: Alex Haywood MD at 11:00 EDT ,
[2024-01-31 11:19] LABS: AST(SGOT) 17 U/L (15-37); Alanine Aminotransfer ALT/SGPT 24 U/L (13-56); Albumin, Serum 3.7 g/dL (3.2-5.0); Alkaline Phosphatase 62 U/L (45-117); Bilirubin, Direct 0.19 mg/dL (0.00-0.30); Cholesterol 190 mg/dL (200); Globulin 4.3 g/dL (2.2-4.2); High Density Lipoprotein 50 mg/dL; Triglycerides 112 mg/dL; Very Low Density Lipoprotein 22 mg/dL (5-40)
--- NOTE | 2024-01-31 11:26 | NM_ITS ---
CLINICAL: 73-year-old female with history of abdominal bloating. SEMI-SOLID PHASE 99m Tc SULFUR COLLOID GASTRIC EMPTYING STUDY COMPARISON: None available FINDINGS: The patient was administered 1.1 mCi of 99m Tc sulfur colloid mixed with oatmeal and consumed per os. Image acquisitions in the anterior-posterior projections were obtained for 60 minutes. There is prompt visualization of the stomach. There is no gastroesophageal reflux identified. The T ? raw data emptying was calculated to be 35.40 minutes, (Normal: 12-56 minutes). NM/Gastric Emptying Study IMPRESSION: 1. NORMAL 99m Tc sulfur colloid semi-solid phase (oatmeal) gastric emptying imaging examination. A. There is normal and preserved semi-solid phase gastric emptying compared to normal controls. (Huma et al, J Nucl Med Tech 38: 186, 2010). Electronically Signed: Reji Smyth DO at 10:07 EDT ,
== END | disposition home or self-care (01) ==
PROVIDERS: Internal Medicine Cardiovascular Disease; PCP Internal Medicine; Referring Provider Internal Medicine Gastroenterology; Visit Provider Internal Medicine Gastroenterology
DX: Z12.31 Encounter for screening mammogram for malignant neoplasm of breast (principal); E78.00 Pure hypercholesterolemia, unspecified; K21.9 Gastro-esophageal reflux disease without esophagitis
CPT/HCPCS: 36415; 77063; 77067; 78264; 80061; 80076; A9541

== ENCOUNTER 2024-02-08 17:03 | Emergency (ER) | payer MEDICARE, OTHER, SELFPAY ==
[2024-02-08 17:04] VITALS: BP 164/122; PULSE 96; RESP 18; TEMP 36.6; O2SAT 94; BMI 33.0
--- NOTE | 2024-02-08 17:35 | EDS_ITS ---
HPI HPI - GI History of Present Illness Chief Complaint: Abd Pain Informant: patient Abdominal Pain/Flank Pain Onset: Days Context: Gradual Onset Timing: Continuous Quality: Dull Location: Epigastric Worsened by: Food Relieved by: Nothing Nausea/Vomiting/Emesis GI Symptom: Positive for Nausea; Negative for Vomiting Diarrhea/Melena/Hematochezia GI Symptom: Positive for Diarrhea (And constipation); Negative for Melena or Hematochezia Associated Symptoms Associated Symptoms: Negative for Dysuria, Frequency or Hematuria Narrative Narrative: Patient presents with abdominal pain has been getting progressively worse over the past several days. Patient states she went to the urgent care for an ear infection and was started on antibiotics. Patient states that after taking the antibiotics, she started having some abdominal pain. Patient states she has pain over the epigastric area and radiates up into the right side of her chest. Patient describes it as dull. Patient states it waxes and wanes. Patient states it is worse with eating. Patient admits to some nausea but denies any vomiting. Patient states she has been having intermittent diarrhea and constipation. Patient denies any melena or hematochezia. Patient states she took her Bentyl with no improvement. Patient states she sees Dr. Bonilla for her IBS. [facility] Medical History Abnormality of left breast on screening mammogram Arthritis Cardiology follow-up encounter Cellulitis of left thigh Deep vein thrombophlebitis of right leg (08/01/15) DVT (deep venous thrombosis) Dyspareunia Essential (primary) hypertension Gastric reflux GERD (gastroesophageal reflux disease) High cholesterol History of echocardiogram History of edema History of heart attack History of IBS History of irregular heartbeat History of stress test History of ulceration Hyperglobulinemia Hyperlipidemia Hypertension Hypothyroid Hypothyroidism (acquired) Leg cramps Migraine headache Non-smoker Nonobstructive atherosclerosis of coronary artery Old myocardial infarction Osteopenia determined by x-ray Pelvic fracture Post-menopausal Shortness of breath on exertion Thyroid disease Vitamin D deficiency Wears glasses Home Medications folic acid 1 mg tablet 2 mg PO DAILY@0800 SUPPLEMENT 04/26/16 [History Last Taken 08/26/17] multivitamin 1 ea PO DAILY SUPPLEMENT 04/26/16 [History Last Taken 02/25/22] aspirin 81 mg tablet,delayed release (Adult Aspirin Regimen) 81 mg PO DAILY 04/26/20 [History Last Taken 02/25/22] levothyroxine 125 mcg tablet 62.5 mcg PO DAILY 04/26/20 [History Last Taken Unknown] metaxalone 800 mg tablet 800 mg PO PRN PRN Pain #30 tabs 07/25/22 [Rx Last Taken Unknown] pantoprazole 40 mg tablet,delayed release 40 mg PO DAILY #90 tabs 07/24/23 [Rx Last Taken Unknown] amlodipine 5 mg tablet 5 mg PO QHS BP #90 tabs 08/28/23 [Rx Last Taken Unknown] metoprolol succinate 25 mg tablet,extended release 24 hr See Rx Instructions .Route .COMPLEX #90 tabs 08/28/23 [Rx Last Taken Unknown] zoledronic acid 5 mg/100 mL in mannitol 5 %-water intravenous piggybck 1 ea .Route ONCE 08/28/23 [History Last Taken Unknown] sulfamethoxazole 800 mg-trimethoprim 160 mg tablet (Bactrim DS) 1 tab PO BID PRN as needed #30 tabs 11/12/23 [Rx Last Taken Unknown] Allergy/AdvReac Type Severity Reaction Status Date / Time Penicillins Allergy Severe Swelling Verified 02/08/24 17:06 Iodinated Contrast Media Allergy Hives Verified 02/08/24 19:23 NSAIDS (Non-Steroidal Allergy Other Verified 02/08/24 17:06 Anti-Inflamma [id number] Reductase AdvReac Severe Other Verified 02/08/24 17:06 Inhibitor diphenhydramine AdvReac Intermediate ANXIOUS Verified 02/08/24 17:06 [From Benadryl] doxycycline AdvReac abdominal Verified 02/08/24 19:23 spasms Environmental Allergies: AdvReac Rash Verified 02/08/24 17:06 Uncoded ezetimibe [From Zetia] AdvReac nausea/vomi Verified 02/08/24 17:06 ting/diarrh ea hydrocodone bitartrate AdvReac Nausea/Vom/ Verified 02/08/24 17:06 [From Vicodin] Diarrhea oxybutynin chloride AdvReac nausea/vomi Verified 02/08/24 17:06 [From Ditropan] ting/diarrh ea pravastatin sodium AdvReac Pain in Verified 02/08/24 17:06 [From Pravachol] joints rofecoxib [From Vioxx] AdvReac not to Verified 02/08/24 17:06 take d/t [place]' simvastatin [From Zocor] AdvReac nausea/vomi Verified 02/08/24 17:06 ting/diarrh ea Family History Mother Diabetes Surgical History H/O bladder repair surgery H/O: hysterectomy History of cardiac catheterization History of carpal tunnel surgery of right wrist History of left heart catheterization (09/2012) Hx of knee surgery Hx of tonsillectomy Hx of tubal ligation Social History Smoking Status: Never smoker alcohol intake: never substance use type: does not use caffeine: Yes what type of physical activity do you participate in: walking seatbelt use: always do you feel safe at home: Yes additional social history: [employer]- Retired Patient is retired ROS ROS ED Constitutional Constitutional ED: Denies chills or fever(s) Eyes Eyes: Denies blurry vision or change in vision ENT ENT ED: Denies rhinorrhea or sore throat Cardiovascular Cardiovascular: Reports chest pain; Denies palpitations Respiratory/Chest Respiratory/Chest: Reports cough; Denies dyspnea Gastrointestinal Gastrointestinal: Reports abdominal pain, constipation, diarrhea and nausea; Denies vomiting Genitourinary Genitourinary ED: Denies dysuria or hematuria Musculoskeletal Musculoskeletal: Reports back pain; Denies neck pain Integumentary Denies abscess or rash Neurologic Neurologic: Denies headache(s) or weakness Allergic/Immunologic Allergic/Immunologic ED: Denies mouth swelling or urticaria EXAM Physical Exam Const Vital Signs: 02/08/24 17:04 02/08/24 19:15 02/08/24 20:58 Temperature 97.8 F Temperature Source Temporal Pulse Rate 96 103 H 82 Respiratory Rate 18 20 H 20 H Blood Pressure 164/122 H 124/74 H 124/64 H Blood Pressure Mean 136 90 84 Pulse Ox 94 93 94 Oxygen Delivery Method Room Air Room Air Positive well nourished and well developed General Appearance ED: well developed and NAD HEENT Reports moist mucous membranes Neck supple and no JVD Resp normal respiratory effort and clear to auscultation bilaterally Cardio regular rate and regular rhythm GI non-distended Palpation: soft and tender epigastric; Negative for guarding or rebound tenderness present Neuro CN's II-XII intact bilaterally, moves all extremities and no sensory deficits noted Sensorium / Orientation: alert Motor Exam: strength 5/5 throughout MDM MDM MDM Narrative Medical decision making narrative: Differential diagnosis includes gastritis, pancreatitis, peptic ulcer disease, duodenal ulcer, IBS, cholecystitis, choledocholithiasis, pneumonia, bowel obstruction, perforation, viral infection. CT scan of the abdomen pelvis will be obtained to assess for bowel obstruction and perforation. CBC will be obtained to assess for leukocytosis and anemia. Comprehensive metabolic profile will be obtained to assess for electrolyte abnormality and renal function. Lipase will be obtained to assess for pancreatitis. Urinalysis will be obtained to assess for urinary tract infection or hematuria. COVID-19, influenza, and R SV will be obtained to assess for viral infection. Lab Data Attestation: I reviewed the patient's lab results. Lab results narrative: CBC was reviewed. White blood cell count was slightly low at 3.8. The remainder was within normal limits. Comprehensive metabolic profile was reviewed and was essentially within normal limits. Lipase was reviewed and was normal at 38. Urinalysis was reviewed. There is no evidence of urinary tract infection or hematuria. Labs: Laboratory Results - last 24 hr 02/08/24 02/08/24 18:00 18:23 WBC 3.8 L RBC 4.76 Hgb 13.8 Hct 41.2 MCV 86.6 MCH 29.0 MCHC 33.5 RDW Std Deviation 39.8 RDW Coeff of Kael 12.6 Plt Count 182 MPV 9.3 Immature Gran % (Auto) 0.300 Neut % (Auto) 63.6 Lymph % (Auto) 17.2 L [place] % (Auto) 16.6 H Eos % (Auto) 1.8 Baso % (Auto) 0.5 Absolute Neuts (auto) 2.4 Absolute Lymphs (auto) 0.65 L Nucleated RBC % 0 Sodium 135 L Potassium 4.0 Chloride 102 Carbon Dioxide 29.0 Anion Gap 4 L BUN 11 Creatinine 0.88 Estim Creat Clear Calc 61.45 Est GFR (MDRD) Af Amer 81 Est GFR (MDRD) Non-Af 67 BUN/Creatinine Ratio 12.6 Glucose 109 H Calcium 9.8 Total Bilirubin 0.60 AST 17 ALT 26 Alkaline Phosphatase 65 Total Protein 8.2 Albumin 4.0 Globulin 4.2 Albumin/Globulin Ratio 1.0 Lipase 38 Urine Color Yellow Urine Clarity Clear Urine pH 6.5 Ur Specific [place] 1.010 Urine Protein Negative Urine Glucose (UA) Normal Urine Ketones 15 H Urine Occult Blood Negative Urine Nitrite Negative Urine Bilirubin Negative Urine Urobilinogen Normal Ur Leukocyte Esterase Negative Urine RBC 0 SEEN Urine WBC 0 SEEN Ur Squamous Epith Cells 0 SEEN Urine Bacteria 0 SEEN Urine Mucus 0 SEEN Radiography Diagnostic Testing: Clinical Impression(s) from Imaging Studies Abdomen/Pelvis CT 02/08/24 17:42 IMPRESSION: 1. No acute intra-abdominal pathology. 2. 7 mm, pancreatic head hypodensity suspected to be associated with pancreatic duct. Correlation with MRCP is recommended. Low suspicion neoplasm needs to be excluded. 3. Incidental hepatic and renal hypodensities with no follow-up indicated. Electronically Signed: Franco Nevarez DO at 21:07 EDT , CT scan of the abdomen pelvis was obtained. There is no acute intra-abdominal pathology. There is a 7 mm hypodensity in the pancreatic head near the pancreatic duct. There are hepatic and renal hypodensities noted as well. This was interpreted by the radiologist was also dependently reviewed by myself. Treatment and Re-Evaluation :: Patient was given IV fluids and Zofran. When information technology specialist came to get the patient for CT scan, she indicated to the information technology specialist that she was allergic to IVP dye. Patient was given a dose of Solu-Medrol prior to CT scan. Patient did not have any allergic reaction to CT scan. Patient is feeling better on reevaluation. Patient was advised of her findings. Instructed to start with a bland diet and advance as tolerated. Patient was instructed to follow-up with her primary care physician in 5 to 7 days. Patient was instructed to return if worse in any way. Patient understood and was agreeable with the plan. All questions were answered. Discharge Plan Triage Chief Complaint: Abd Pain ED Provider: Misael Echeverria Dx/Rx/DC Orders Clinical Impression: Abdominal pain, Irritable bowel syndrome Instructions: ED Abdominal Pain Unkn Cause Fem, ED Irritable Bowel Syndrome Prescriptions: No Action aspirin [Adult Aspirin Regimen] 81 mg tablet,delayed release (DR/EC) 81 mg PO DAILY levothyroxine 125 mcg tablet 62.5 mcg PO DAILY metaxalone 800 mg tablet 800 mg PO PRN PRN (Reason: Pain) Qty: 30 0RF pantoprazole 40 mg tablet,delayed release (DR/EC) 40 mg PO DAILY Qty: 90 9RF zoledronic cnsl-ikneidyf-zlvnx 5 mg/100 mL piggyback 1 ea .Route ONCE Patient Comments: once a year Rx Instructions: onceinfuse over 20 minutes metoprolol succinate 25 mg tablet extended release 24 hr See Rx Instructions .ROUTE .COMPLEX Qty: 90 3RF Dose Instruction: TAKE 1 TABLET BY MOUTH AT BEDTIME FOR BLOOD PRESSURE Rx Instructions: TAKE 1 TABLET BY MOUTH AT BEDTIME FOR BLOOD PRESSURE amlodipine 5 mg tablet 5 mg PO QHS Qty: 90 3RF multivitamin 1 EACH tablet 1 ea PO DAILY folic acid 1 MG tablet 2 mg PO DAILY@0800 sulfamethoxazole-trimethoprim [Bactrim DS] 800-160 mg tablet 1 tab PO BID PRN (Reason: as needed) Qty: 30 1RF Patient Comments: BLADDER INFECTIONS-KEEPS ON HAND Primary Care Provider: Joi Gonzalez Referrals: Joi Gonzalez MD [Primary Care Provider] - 5-7 Days Disposition Disposition: Home, Self Care
--- NOTE | 2024-02-08 17:42 | CT_ITS ---
INDICATION: Abdominal pain -- IV PO Contrast EXAMINATION: CT ABDOMEN AND PELVIS WITH CONTRAST - CT Abdomen And Pelvis W/ Contrast Injection TECHNIQUE: Helically acquired images were obtained of the abdomen and pelvis following IV contrast. A radiation dose optimization technique was used for this scan. IV Contrast dosage and agent: 100 mL of Isovue-370. Oral contrast: Dilute Gastrografin COMPARISON: No relevant prior comparison studies available. FINDINGS: LOWER CHEST: Bibasilar dependent atelectasis, moderate. Heart is normal size. Mild coronary artery calcifications are visible. There is a moderate-sized sliding hiatal hernia. LIVER: Posterior segment 7 peripheral hepatic hypodensity, 9 mm, too small to optimally characterize. Segment 4 ill-defined hypodensity suggesting focal fatty infiltration. Normal size and contour of the liver. GALLBLADDER AND BILIARY TREE: No calcified gallstones. No gallbladder distension or wall edema. No intra- or extrahepatic biliary ductal dilation. PANCREAS: 7 mm pancreatic head hypodensity. Suspected communication with the duct. Correlation with MRCP is recommended. SPLEEN: Normal size without focal cystic or solid mass. ADRENAL GLANDS: No nodules. KIDNEYS, URETERS and BLADDER: Symmetric normal enhancement bilateral kidneys. No hydronephrosis. There are peripelvic cysts on the left. Right upper pole exophytic, 7 mm, homogenous fluid density; benign cyst. Bladder is unremarkable. PERITONEUM: No ascites or free air. No other fluid collection. BOWEL: No evidence of acute appendicitis. No abnormally distended bowel loops or air fluid levels. No wall thickening or mass. No focal inflammatory changes. LYMPH NODES: No enlarged mesenteric or retroperitoneal lymph nodes. VESSELS: Aorta is non-dilated. Scattered intimal calcifications noted. REPRODUCTIVE ORGANS: Absent or atrophic. ABDOMINAL WALL: No discrete abdominal or pelvic wall hernia. BONES: No lytic or blastic abnormality. Moderate degenerative changes spine. No critical stenosis. Remote healed fracture left superior pubic ramus. Degenerative changes, mild, bilateral hips and symphysis pubis. CT/Abdomen/Pelvis WITH Contrast IMPRESSION: 1. No acute intra-abdominal pathology. 2. 7 mm, pancreatic head hypodensity suspected to be associated with pancreatic duct. Correlation with MRCP is recommended. Low suspicion neoplasm needs to be excluded. 3. Incidental hepatic and renal hypodensities with no follow-up indicated. Electronically Signed: Franco Nevarez DO at 21:07 EDT ,
[2024-02-08] MEDS: 0.9% Normal Saline (1000mL) 1,000 ML 1000 ML IV (18:01)
[2024-02-08] MEDS: Ondansetron 4 MG/2 ML Vial IV (18:02)
[2024-02-08 18:15] LABS: Absolute Lymphocyte Count 0.65 X10^3/uL (0.83-4.51); Absolute Neutrophil Count 2.4 X10^3/uL (2.0-7.7); Basophil# 0.02 X10^3/uL; Basophil% 0.5 % (0-1); Eosinophil# 0.07 X10^3/uL; Eosinophils% 1.8 % (0-5); Hematocrit 41.2 % (37-47); Hemoglobin 13.8 g/dL (12.0-15.0); Lymphocyte # 0.65 X10^3/ul (0.83-4.51); Lymphocyte % 17.2 % (19-41); Mean Corp Hgb Conc 33.5 g/dL (32-36); Mean Corpuscular Volume 86.6 fL (81-99); Mean Platelet Vol. 9.3 fl (6.2-12.0); Monocyte# 0.63 X10^3/uL; Monocyte% 16.6 % (0-10); NRBC Flagged by Analyzer 0 % (0-5); Neutrophil # 2.41 X10^3/uL (2.7-7.7); Neutrophil % 63.6 % (47-70); Platelet Count 182 K/mm3 (150-450); RBC Distribution Width CV 12.6 % (11.6-14.6); RBC Distribution Width SD 39.8 fl (35.1-43.9); Red Blood Count 4.76 M/mm3 (4.2-5.4); White Blood Count 3.8 K/mm3 (4.4-11.0)
[2024-02-08 18:31] LABS: Bacteria 0 SEEN /hpf (None Seen); Mucous, Urine 0 SEEN /hpf (<or=2+); Red Blood Cells-Urine 0 SEEN /hpf (0-5); Squamous Epithelial Cells - UA 0 SEEN /hpf (5-10); White Blood Cells 0 SEEN /hpf (0-5)
[2024-02-08 18:36] LABS: AST(SGOT) 17 U/L (15-37); Alanine Aminotransfer ALT/SGPT 26 U/L (13-56); Alkaline Phosphatase 65 U/L (45-117); Anion Gap 4 (5-15); BUN 11 mg/dL (7-18); BUN/Creat Ratio 12.6 RATIO (10-20); Calcium,Total 9.8 mg/dL (8.5-10.1); Chloride 102 mmol/L (98-107); Creatinine, Serum 0.88 mg/dL (0.55-1.02); EST Glomerular Filtration Rate 67 mL/min (>60); Est Glom Filt Rate - Afr Amer 81 mL/min (>60); Estimated Creatinine Clearance 61.45 ml/min; Globulin 4.2 g/dL (2.2-4.2); Glucose 109 mg/dL (74-106); Lipase 38 U/L (13-75); Protein, Total 8.2 g/dL (6.4-8.2); Sodium Level 135 mmol/L (136-145)
[2024-02-08 18:40] LABS: Color, Urine Yellow (Yellow); Glucose, Dipstick Normal (Normal); Ketone-Dipstick 15 mg/dl (Negative); Leukocyte Esterase-Dipstick Negative /ul (Negative); Nitrite-Dipstick Negative (Negative); Occult Blood-Urine Negative /ul (Negative); Protein-Dipstick Negative (Negative); Urine Bilirubin Dipstick Negative (Negative); Urine Clarity Clear (Clear); Urine Urobilinogen Normal (Normal); Urine pH 6.5 (5.0 - 8.0)
[2024-02-08 19:15] VITALS: BP 124/74; PULSE 103; RESP 20; O2SAT 93
[2024-02-08] MEDS: MethylPREDNISolone 125 MG/2 ML Vial IV (19:21)
[2024-02-08 20:58] VITALS: BP 124/64; PULSE 82; RESP 20; O2SAT 94
[2024-02-08 21:42] VITALS: BP 117/62; PULSE 95; RESP 18; TEMP 36.1; O2SAT 93
== END 2024-02-08 21:44 | disposition home or self-care (01) ==
PROVIDERS: Emergency Provider Emergency Medicine; PCP Internal Medicine; Visit Provider Emergency Medicine
DX: R10.13 Epigastric pain (principal); K58.0 Irritable bowel syndrome with diarrhea; I25.2 Old myocardial infarction; Z79.82 Long term (current) use of aspirin; Z79.899 Other long term (current) drug therapy; Z86.718 Personal history of other venous thrombosis and embolism
CPT/HCPCS: 74177; 80053; 81001; 83690; 85025; 96361; 96374; 96375; 99283; J7030; Q9967; A4216; J2405

== ENCOUNTER → 2024-02-12 | Outpatient (CLI) | payer MEDICARE, OTHER, SELFPAY ==
[2024-02-17 00:08] LABS: Calprotectin, Stool 34 ug/g (0-120); Fats, Neutral Normal (.); Fats, Total Increased (.)
[2024-02-17 04:07] LABS: Pancreatic Elastase, Fecal 130 (>200)
== END | disposition home or self-care (01) ==
PROVIDERS: PCP Internal Medicine; Referring Provider Internal Medicine Gastroenterology; Visit Provider Internal Medicine Gastroenterology
DX: R19.5 Other fecal abnormalities (principal)
CPT/HCPCS: 82274; 82653; 82705; 83630; 83993; 87493

== ENCOUNTER → 2024-02-14 | Outpatient (CLI) | payer MEDICARE, OTHER, SELFPAY | END | disposition home or self-care (01) | PROVIDERS: PCP Internal Medicine; Referring Provider Internal Medicine Gastroenterology; Visit Provider Internal Medicine Gastroenterology | DX: Z00.00 Encounter for general adult medical examination without abnormal findings (principal) ==

== ENCOUNTER 2024-05-21 07:42 | Outpatient (CLI) | payer MEDICARE, OTHER, SELFPAY ==
[2024-05-21 09:59] VITALS: BP 119/68; PULSE 78; RESP 16; TEMP 35.9; O2SAT 97; BMI 32.1
[2024-05-21] MEDS: Zoledronic Acid 5 MG 100 ML 300 MG IV (10:20)
[2024-05-21] MEDS: 0.9% NaCl Peripheral Flush Adult/Peds IV (10:23)
[2024-05-21 10:48] VITALS: BP 118/57; PULSE 72
== END 2024-05-21 23:59 | disposition home or self-care (01) ==
LOC: MEDOUTP 07:45
PROVIDERS: PCP Internal Medicine; Referring Provider Internal Medicine Endocrinology, Diabetes & Metabolism; Visit Provider Internal Medicine Endocrinology, Diabetes & Metabolism
DX: M81.0 Age-related osteoporosis without current pathological fracture (principal)
CPT/HCPCS: 96365; A4216; J3489

== ENCOUNTER 2024-05-21 08:30 | Outpatient (CLI) | payer MEDICARE, OTHER, SELFPAY ==
--- NOTE | 2024-05-21 07:52 | MRI_ITS ---
Abdominal MRI and MRCP with and without contrast 05/21/2024 8:54 AM COMPARISON: None CLINICAL HISTORY: pancreatic cyst -- include MRCP sequences, CONTRAST DELAYED DUE TO POWER INJECTOR ERROR, ABDOMEN PAIN TECHNIQUE: Multiplanar and multisequence MR images of the abdomen were obtained with MRCP sequence. Three-dimensional post-processing reconstructions were performed. 17 cc of IV Clariscan was used. FINDINGS: Liver: Unremarkable Gallbladder: Unremarkable Bile Ducts: No intra or extrahepatic biliary duct dilatation. Pancreas: No main pancreatic duct dilatation. In the uncinate process, there is a unilocular 1 cm T2 hyperintense lesion with no enhancement. No drop in signal on T1 opposed phase images compared to T1 in phase images. Spleen: Unremarkable Adrenal Glands: Unremarkable Kidneys: Stable chronic moderate hydronephrosis of the left kidney. GI Tract: Hiatal hernia. Lymphadenopathy: Absent Ascites: Absent Bones: No suspicious lesions MRI/MRI Abd WITH and W/O Contrast IMPRESSION: 1 cm unilocular nonenhancing T2 hyperintense cystic lesion in the uncinate process of the pancreas without main pancreatic duct dilatation. 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 Per ACR white paper guidelines, recommend follow-up MRCP in two years. Moderate left hydronephrosis, similar in appearance to prior CT on 02/08/2024. Electronically Signed: Ahmet Escalante MD at 3:08 EDT ,
[2024-05-21 16:28] LABS: CREATININE FINGERSTICK < 1.0 mg/dL (0.55-1.02); EGFR FINGERSTICK > 60.0000 mL/min (>60)
== END 2024-05-21 18:00 | disposition home or self-care (01) ==
LOC: MRI 06-24 14:36
PROVIDERS: PCP Internal Medicine; Referring Provider Internal Medicine Gastroenterology; Visit Provider Internal Medicine Gastroenterology
DX: K86.2 Cyst of pancreas (principal)
CPT/HCPCS: 74183; A9575; A4216

== ENCOUNTER → 2024-05-26 | Outpatient (CLI) | payer MEDICARE, OTHER, SELFPAY ==
[2024-05-26 13:27] LABS: T4 Free Direct 1.02 ng/dL (0.76-1.46); Thyroid Stim Hormone (TSH) 0.82 uIU/mL (0.358-3.74)
[2024-05-26 13:36] LABS: Vitamin D,25 Hydroxy 53.3 ng/mL
== END | disposition home or self-care (01) ==
LOC: LAB 11:12
PROVIDERS: PCP Internal Medicine; Referring Provider Internal Medicine Endocrinology, Diabetes & Metabolism; Visit Provider Internal Medicine Endocrinology, Diabetes & Metabolism
DX: E55.9 Vitamin D deficiency, unspecified (principal); E03.9 Hypothyroidism, unspecified
CPT/HCPCS: 36415; 82306; 84439; 84443

== ENCOUNTER 2024-07-27 09:17 | Outpatient (CLI) | payer MEDICARE, OTHER, SELFPAY ==
[2024-07-28 12:09] LABS: Carbohydrate Ag 19-9 2261 3 U/mL (0-35)
== END 2024-07-27 23:59 | disposition home or self-care (01) ==
LOC: LAB 09:19
PROVIDERS: PCP Internal Medicine; Referring Provider Internal Medicine Gastroenterology; Visit Provider Internal Medicine Gastroenterology
DX: D49.0 Neoplasm of unspecified behavior of digestive system (principal); K29.70 Gastritis, unspecified, without bleeding; K20.90 Esophagitis, unspecified without bleeding
CPT/HCPCS: 36415; 86301

== ENCOUNTER 2025-01-02 21:47 | Emergency (ER) | payer MEDICARE, SELFPAY ==
[2025-01-02 21:51] VITALS: BP 154/77; PULSE 88; RESP 18; TEMP 36.4; O2SAT 95; BMI 34.7
--- NOTE | 2025-01-02 22:20 | EKG12_ITS ---
Test Reason : CP Blood Pressure : */* mmHG Vent. Rate : 86 BPM Atrial Rate : 86 BPM P-R Int : 166 ms QRS Dur : 66 ms QT Int : 366 ms P-R-T Axes : 53 13 13 degrees QTcB Int : 437 ms Normal sinus rhythm Nonspecific ST abnormality Abnormal ECG Confirmed by Franco Carreon ([id number]), editor greeting card AMAN HAYWOOD ([id number]) on 01/04/2025 10:21:10 AM Referred By: Hayden Song Confirmed By: Franco Carreon
--- NOTE | 2025-01-02 22:22 | RAD_ITS ---
PROCEDURE: Chest radiographs REASON FOR EXAM: Chest pain TECHNIQUE: Two views of the chest COMPARISON: 01/02/2024 FINDINGS: Heart size is within normal limits. Tortuous thoracic aorta. No focal consolidation, pleural effusion or sizable pneumothorax. RAD/Chest PA and Lateral IMPRESSION: No acute airspace abnormality. Reading Location: [facility]
[2025-01-02] MEDS: Lidocaine 2% Viscous15 ML UDC 15 ML PO (22:25)
[2025-01-02] MEDS: Mag Hydrox/Al Hydrox/Simeth 30 ML UDC PO (22:25)
[2025-01-02 22:40] LABS: Absolute Lymphocyte Count 2.53 X10^3/uL (0.83-4.51); Absolute Neutrophil Count 2.1 X10^3/uL (2.0-7.7); Basophil# 0.03 X10^3/uL; Basophil% 0.5 % (0-1); Eosinophil# 0.26 X10^3/uL; Eosinophils% 4.7 % (0-5); Hematocrit 39.6 % (37-47); Hemoglobin 13.4 g/dL (12.0-15.0); Lymphocyte # 2.53 X10^3/ul (0.83-4.51); Lymphocyte % 45.3 % (19-41); Mean Corp Hgb Conc 33.8 g/dL (32-36); Mean Corpuscular Hgb 29.2 pg (27.0-32.0); Mean Corpuscular Volume 86.3 fL (81-99); Mean Platelet Vol. 9.9 fl (6.2-12.0); Monocyte# 0.64 X10^3/uL; Monocyte% 11.5 % (0-10); NRBC Flagged by Analyzer 0 % (0-5); Neutrophil # 2.11 X10^3/uL (2.7-7.7); Neutrophil % 37.8 % (47-70); Platelet Count 223 K/mm3 (150-450); RBC Distribution Width CV 12.7 % (11.6-14.6); RBC Distribution Width SD 39.7 fl (35.1-43.9); Red Blood Count 4.59 M/mm3 (4.2-5.4); White Blood Count 5.6 K/mm3 (4.4-11.0)
[2025-01-02] MEDS: Pantoprazole Sodium 40 MG in 0.9% Normal Saline (100mL MB+) 100 ML 330 MG IV (22:47)
[2025-01-02 22:48] VITALS: BP 133/65; PULSE 87; RESP 14; O2SAT 98
[2025-01-02 23:00] VITALS: BP 124/66; PULSE 82; RESP 16
[2025-01-02 23:16] LABS: AST(SGOT) 15 U/L (15-37); Alanine Aminotransfer ALT/SGPT 21 U/L (13-56); Albumin, Serum 3.5 g/dL (3.2-5.0); Alkaline Phosphatase 65 U/L (45-117); Anion Gap 6 (5-15); BUN 18 mg/dL (7-18); BUN/Creat Ratio 20.9 RATIO (10-20); Bilirubin, Direct 0.11 mg/dL (0.00-0.30); Calcium,Total 9.2 mg/dL (8.5-10.1); Chloride 104 mmol/L (98-107); Creatinine, Serum 0.86 mg/dL (0.55-1.02); EST Glomerular Filtration Rate 68 mL/min (>60); Est Glom Filt Rate - Afr Amer 83 mL/min (>60); Estimated Creatinine Clearance 61.25 ml/min; Globulin 4.5 g/dL (2.2-4.2); Glucose 130 mg/dL (74-106); Lipase 46 U/L (73-393); Potassium 3.7 mmol/L (3.5-5.1); Sodium Level 139 mmol/L (136-145); Troponin-I HS 5 pg/mL (3.0-54.0)
[2025-01-03] VITALS: PULSE 77; RESP 14; O2SAT 96
[2025-01-03 00:47] LABS: Troponin-I HS 8 pg/mL (3.0-54.0)
[2025-01-03 01:00] VITALS: BP 130/71; PULSE 78; RESP 17; O2SAT 95
[2025-01-03 01:03] VITALS: BP 130/71; PULSE 78; RESP 17; TEMP 36.4; O2SAT 95
--- NOTE | 2025-01-03 01:04 | EX.ED.DYSGE1 ---
HPI History of Present Illness Chief Complaint: Chest Pain Informant: patient Narrative Narrative: Patient is a 74-year-old female with history of hypertension hyperlipidemia GERD and previous pancreatitis. She states after eating she developed some upper abdominal/lower chest pain yesterday. She states that today the symptoms seem to return and now radiate up into her chest. She states she is concerned this could be atypical cardiac presentation as she has reported a history of heart attack and therefore comes in for evaluation [facility] Medical History Osteoporosis Pelvic fracture Wears glasses Post-menopausal Thyroid disease Arthritis High cholesterol DVT (deep venous thrombosis) Migraine headache History of ulceration History of IBS Gastric reflux Non-smoker Shortness of breath on exertion Leg cramps History of edema History of echocardiogram History of stress test Hypertension Cardiology follow-up encounter History of irregular heartbeat History of heart attack Cellulitis of left thigh Nonobstructive atherosclerosis of coronary artery Hyperglobulinemia Vitamin D deficiency Hypothyroidism (acquired) Osteopenia determined by x-ray Deep vein thrombophlebitis of right leg (08/01/15) Essential (primary) hypertension Dyspareunia Abnormality of left breast on screening mammogram Hypothyroid Old myocardial infarction Hyperlipidemia GERD (gastroesophageal reflux disease) Home Medications ?Medication ?Instructions ?Recorded ?Last Taken ?Type folic acid 1 mg tablet 2 mg PO DAILY@0800 SUPPLEMENT 04/26/16 08/26/17 History multivitamin 1 ea PO DAILY SUPPLEMENT 04/26/16 02/25/22 History aspirin 81 mg tablet,delayed 81 mg PO DAILY 04/26/20 02/25/22 History release (Adult Aspirin Regimen) levothyroxine 125 mcg tablet 62.5 mcg PO DAILY 04/26/20 Unknown History metaxalone 800 mg tablet 800 mg PO PRN PRN Pain #30 tabs 07/25/22 Unknown Rx sulfamethoxazole 800 1 tab PO BID PRN as needed #30 tabs 11/12/23 Unknown Rx mg-trimethoprim 160 mg tablet (Bactrim DS) ondansetron 4 mg disintegrating 4 mg PO Q8H PRN nausea and 02/28/24 Unknown Rx tablet vomiting #120 tabs dicyclomine 20 mg tablet 20 mg PO TID PRN PRN ABD PAIN #90 03/24/24 Unknown Rx tabs hyoscyamine sulfate 0.125 mg tablet 0.125 mg PO Q8H PRN dyspepsia #90 05/25/24 Unknown Rx tabs fjjakc-[id number]-[id number] 1 cap PO QAC 07/27/24 Unknown History 40,000-126,000-168,000 unit capsule, delay rel (Zenpep) amlodipine 5 mg tablet 5 mg PO QHS BP #90 tabs 09/07/24 Unknown Rx metoprolol succinate 25 mg 25 mg PO QDAY #90 tabs 09/07/24 Unknown Rx tablet,extended release 24 hr pantoprazole 40 mg tablet,delayed 40 mg PO DAILY #90 tabs 10/05/24 Unknown Rx release Allergy/AdvReac Type Severity Reaction Status Date / Time Penicillins Allergy Severe Swelling Verified 01/02/25 21:50 Iodinated Contrast Media Allergy Hives Verified 01/02/25 21:50 NSAIDS (Non-Steroidal Allergy Other Verified 01/02/25 21:50 Anti-Inflamma Dirmmfn-FPR-ZhG Reductase AdvReac Severe Other Verified 01/02/25 21:50 Inhibitor diphenhydramine (From AdvReac Intermediate ANXIOUS Verified 01/02/25 21:50 Benadryl) doxycycline AdvReac abdominal Verified 01/02/25 21:50 spasms Environmental Allergies: AdvReac Rash Verified 01/02/25 21:50 Uncoded ezetimibe (From Zetia) AdvReac nausea/vomi Verified 01/02/25 21:50 ting/diarrh ea hydrocodone bitartrate (From AdvReac Nausea/Vom/ Verified 01/02/25 21:50 Vicodin) Diarrhea oxybutynin chloride (From AdvReac nausea/vomi Verified 01/02/25 21:50 Ditropan) ting/diarrh ea pravastatin sodium (From AdvReac Pain in Verified 01/02/25 21:50 Pravachol) joints rofecoxib (From Vioxx) AdvReac not to Verified 01/02/25 21:50 take d/t LA' simvastatin (From Zocor) AdvReac nausea/vomi Verified 01/02/25 21:50 ting/diarrh ea Family History Mother Diabetes Surgical History History of cardiac catheterization History of carpal tunnel surgery of right wrist Hx of tonsillectomy Hx of tubal ligation History of left heart catheterization (09/2012) H/O: hysterectomy H/O bladder repair surgery Hx of knee surgery Social History (Updated 01/02/25 @ 21:59 by Suzette East) household members: spouse housing: house current occupational status: retired Smoking Status: Never smoker alcohol intake: never substance use type: does not use caffeine: Yes what type of physical activity do you participate in: walking seatbelt use: always do you feel safe at home: Yes additional social history: Le[employer]- Retired Patient is retired ROS ROS ED Constitutional Constitutional ED: Denies chills or fever(s) Eyes Eyes: Denies blurry vision or change in vision ENT ENT ED: Denies sore throat Cardiovascular Cardiovascular: Reports chest pain; Denies palpitations or racing heartbeat Respiratory/Chest Respiratory/Chest: Denies cough or dyspnea Gastrointestinal Gastrointestinal: Reports abdominal pain and nausea; Denies diarrhea or vomiting Genitourinary Genitourinary ED: Denies dysuria Musculoskeletal Musculoskeletal: Denies back pain Integumentary Denies rash Neurologic Neurologic: Denies headache(s) Hematologic/Lymphatic Hematologic/Lymphatic: Denies easy bleeding or easy bruising EXAM Physical Exam Const Vital Signs: 01/02/25 21:51 01/02/25 22:48 01/02/25 23:00 Temperature 97.5 F L Temperature Source Temporal Pulse Rate 88 87 82 Respiratory Rate 18 14 16 Blood Pressure 154/77 H 133/65 H 124/66 H Blood Pressure Mean 102 87 85 Pulse Ox 95 98 Oxygen Delivery Method Room Air Room Air 01/03/25 00:00 01/03/25 01:00 01/03/25 01:03 Temperature 97.5 F L Temperature Source Pulse Rate 77 78 78 Respiratory Rate 14 17 17 Blood Pressure 130/71 H 130/71 H Blood Pressure Mean 90 90 Pulse Ox 96 95 95 Oxygen Delivery Method Room Air Room Air Positive well nourished and well developed General Appearance ED: well developed; Negative for pallor HEENT HEENT Narrative: Normocephalic atraumatic No signs of infection noted in the posterior pharynx Eyes PERRL and EOMs intact bilaterally General Eye ED: Negative for scleral icterus Neck supple Neck Narrative: No nuchal rigidity or meningeal signs Resp normal respiratory effort and clear to auscultation bilaterally Cardio regular rate and regular rhythm Rate: other Other Details: Heart is regular rate and rhythm Radial and carotid pulses are equal and symmetric GI non-distended and no masses GI Narrative: Abdomen is soft and nondistended with normal active bowel sounds. There is mild pain with palpation in the midepigastric region without voluntary guarding or rigidity No pulsatile mass or fluid wave Auscultation: normoactive bowel sounds Palpation: soft Back/Spine no CVA tenderness Extremity normal to inspection Extremity Narrative: No asymmetric edema no pitting edema negative Homans' sign bilaterally Neuro oriented x3, CN's II-XII intact bilaterally and no sensory deficits noted Sensorium / Orientation: alert Motor Exam: strength 5/5 throughout Psych mental status grossly normal Skin no rashes or lesions noted General Skin Exam: Negative for jaundice or pallor MDM MDM MDM Narrative Medical decision making narrative: Patient arrived to the ER mildly hypertensive but has a past medical history of this and otherwise vitals are stable. Patient report of symptoms differential diagnosis is for acute coronary syndrome versus cardiac dysrhythmia versus pancreatitis and therefore basic labs were obtained. White count is normal without left shift going against a secondary infection. EKG was sinus rhythm going against cardiac dysrhythmia without ischemic findings and her troponins are normal as well going against acute coronary syndrome. Lipase is not elevated going against acute pancreatitis and labs do not show signs of acute kidney injury or clinically significant [place] abnormality. Chest x-ray also reveals no acute lung pathology such as pneumonia or pneumothorax. Therefore at this time with overall negative workup there is no need for further intervention and patient is otherwise safe for discharge History & Record Review Discussion w/independent historian: Patient Lab Data Attestation: I reviewed the patient's lab results. Labs: Laboratory Results - last 24 hr 01/02/25 01/03/25 22:01 00:20 WBC 5.6 RBC 4.59 Hgb 13.4 Hct 39.6 MCV 86.3 MCH 29.2 MCHC 33.8 RDW Std Deviation 39.7 RDW Coeff of Kael 12.7 Plt Count 223 MPV 9.9 Immature Gran % (Auto) 0.200 Neut % (Auto) 37.8 L Lymph % (Auto) 45.[address] [place] % (Auto) 11.5 H Eos % (Auto) 4.7 Baso % (Auto) 0.5 Absolute Neuts (auto) 2.1 Absolute Lymphs (auto) 2.53 Nucleated RBC % 0 Sodium 139 Potassium 3.7 Chloride 104 Carbon Dioxide 29.0 Anion Gap 6 BUN 18 Creatinine 0.86 Estim Creat Clear Calc 61.25 Est GFR (MDRD) Af Amer 83 Est GFR (MDRD) Non-Af 68 BUN/Creatinine Ratio 20.9 H Glucose 130 H Calcium 9.2 Total Bilirubin 0.30 Direct Bilirubin 0.11 AST 15 ALT 21 Alkaline Phosphatase 65 Troponin I High Sens 5 8 Total Protein 8.0 Albumin 3.5 Globulin 4.5 H Lipase 46 L Radiography Diagnostic Testing: Clinical Impression(s) from Imaging Studies Chest X-Ray 01/02/25 22:22 IMPRESSION: No acute airspace abnormality. Reading Location: [facility] Discharge Plan Triage Chief Complaint: Chest Pain ED Provider: Hayden Song Dx/Rx/DC Orders Clinical Impression: Nonspecific chest pain, Essential (primary) hypertension, Hyperlipidemia, GERD (gastroesophageal reflux disease) Instructions: ED Chest Pain, Uncertain Cause Prescriptions: No Action aspirin [Adult Aspirin Regimen] 81 mg tablet,delayed release (DR/EC) 81 mg PO DAILY levothyroxine 125 mcg tablet 62.5 mcg PO DAILY metaxalone 800 mg tablet 800 mg PO PRN PRN (Reason: Pain) Qty: 30 0RF Zenpep 40,000-126,000- 168,000 unit capsule,delayed release(DR/EC) 1 cap PO QAC Rx Instructions: administer 2-3 with meals and 1-2 with snacks. Maximum 10 a day. multivitamin 1 EACH tablet 1 ea PO DAILY folic acid 1 MG tablet 2 mg PO DAILY@0800 sulfamethoxazole-trimethoprim [Bactrim DS] 800-160 mg tablet 1 tab PO BID PRN (Reason: as needed) Qty: 30 1RF Patient Comments: BLADDER INFECTIONS-KEEPS ON HAND ondansetron 4 mg tablet,disintegrating 4 mg PO Q8H PRN (Reason: nausea and vomiting) Qty: 120 1RF dicyclomine 20 mg tablet 20 mg PO TID PRN PRN (Reason: ABD PAIN) Qty: 90 1RF hyoscyamine sulfate 0.125 mg tablet 0.125 mg PO Q8H PRN (Reason: dyspepsia) Qty: 90 0RF metoprolol succinate 25 mg tablet extended release 24 hr 25 mg PO QDAY Qty: 90 3RF amlodipine 5 mg tablet 5 mg PO QHS Qty: 90 3RF pantoprazole 40 mg tablet,delayed release (DR/EC) 40 mg PO DAILY Qty: 90 9RF Primary Care Provider: Joi Gonzalez Referrals: Joi Gonzalez MD [Primary Care Provider] - Print Language: Mongolian Disposition Disposition: Home, Self Care Discharge Date/Time: 01/03/25 01:34
== END 2025-01-03 01:34 | disposition home or self-care (01) ==
PROVIDERS: Emergency Provider Emergency Medicine; PCP Internal Medicine; Referring Provider Emergency Medicine; Visit Provider Emergency Medicine
DX: R07.9 Chest pain, unspecified (principal); I25.10 Atherosclerotic heart disease of native coronary artery without angina pectoris; I10 Essential (primary) hypertension; K21.9 Gastro-esophageal reflux disease without esophagitis; E78.00 Pure hypercholesterolemia, unspecified; I25.2 Old myocardial infarction; Z86.718 Personal history of other venous thrombosis and embolism
CPT/HCPCS: 71046; 80048; 80076; 83690; 84484; 85025; 93005; 96365; 99283; A4216

== ENCOUNTER → 2025-01-26 | Outpatient (CLI) | payer MEDICARE, SELFPAY ==
[2025-01-26 09:12] LABS: AST(SGOT) 21 U/L (<=31); Alanine Aminotransfer ALT/SGPT 19 U/L (<=34); Albumin, Serum 4.1 g/dL (3.4-4.8); Alkaline Phosphatase 61 U/L (35-104); Bilirubin, Direct 0.19 mg/dL (0.00-0.30); Cholesterol 210 mg/dL (<=200); Globulin 3.6 g/dL (2.2-4.2); High Density Lipoprotein 53 mg/dL; Low Density Lipoprotein Calc. 127 mg/dL; Protein, Total 7.8 g/dL (5.9-8.4); Total Bilirubin 0.55 mg/dL (0.00-1.30); Triglycerides 150 mg/dL; Very Low Density Lipoprotein 30 mg/dL (5-40); cholesterol:hdl ratio screen 3.97
== END | disposition home or self-care (01) ==
LOC: LAB 08:18
PROVIDERS: PCP Internal Medicine; Referring Provider Physician Assistant Medical; Visit Provider Physician Assistant Medical
DX: E78.00 Pure hypercholesterolemia, unspecified (principal)
CPT/HCPCS: 36415; 80061; 80076

== ENCOUNTER → 2025-02-01 | Outpatient (CLI) | payer MEDICARE, SELFPAY ==
--- NOTE | 2025-02-01 09:15 | BI_ITS ---
EXAM: SCRN MAMM (CAD)W/SHENA BILAT 02/01/2025 CLINICAL HISTORY: F, Age 74 y/o , SCREENING TECHNIQUE: Bilateral Diagnostic digital breast tomosynthesis with 2D and 3D images. Computer aided detection. COMPARISON: Prior exam(s) dated 01/31/2024 and 01/29/2023. FINDINGS: TISSUE DENSITY: The breast tissue is composed of scattered area of fibroglandular density. Bilateral Breast Mammographic Findings: No suspicious masses, suspicious clustered microcalcifications, architectural distortion or secondary sign of malignancy is identified in either breast. Benign vascular calcifications and round calcifications are seen in both breasts. Partially obscured stable isodense masses seen in the superior outer aspect of the left breast. A radiopaque clip is seen at this location. The biopsy was benign. The post biopsy site is stable. BI/SCRN MAMM (CAD)W/SHENA BILAT IMPRESSION: Right Breast: BIRADS 2 BENIGN FINDING. Left Breast: BIRADS 2 BENIGN FINDING. OVERALL FINAL ASSESSMENT: BIRADS 2 BENIGN FINDING. RECOMMENDATION: Routine annual follow-up in 1 Year A letter with findings and recommendations will be mailed to the patient. Reading Location: [id number]
== END | disposition home or self-care (01) ==
LOC: OPBI 08:48
PROVIDERS: PCP Internal Medicine; Referring Provider Obstetrics & Gynecology; Visit Provider Obstetrics & Gynecology
DX: Z12.31 Encounter for screening mammogram for malignant neoplasm of breast (principal)
CPT/HCPCS: 77063; 77067

== ENCOUNTER → 2025-04-27 | Outpatient (CLI) | payer MEDICARE, SELFPAY ==
[2025-04-27 15:02] LABS: ALB/GLOB Ratio 1.2 RATIO (0.9-2.4); AST(SGOT) 24 U/L (<=31); Alanine Aminotransfer ALT/SGPT 25 U/L (<=34); Albumin, Serum 4.2 g/dL (3.4-4.8); Alkaline Phosphatase 70 U/L (35-104); Anion Gap 12 (5-15); BUN 16 mg/dL (4-19); BUN/Creat Ratio 21.4 RATIO (10-20); Calcium,Total 9.2 mg/dL (7.6-11.0); Carbon Dioxide 23.6 mmol/L (21.0-32.0); Chloride 104 mmol/L (98-108); Creatinine, Serum 0.73 mg/dL (0.70-1.20); EST Glomerular Filtration Rate 86 (>60); Globulin 3.6 g/dL (2.2-4.2); Glucose 136 mg/dL (70-99); Potassium 4.2 mmol/L (3.3-5.1); Protein, Total 7.9 g/dL (5.9-8.4); Sodium Level 140 mmol/L (133-145); Thyroid Stim Hormone (TSH) 0.876 uIU/mL (0.300-4.200); Total Bilirubin 0.38 mg/dL (0.00-1.30); Vitamin D,25 Hydroxy 33.6 ng/mL (30-100)
== END | disposition home or self-care (01) ==
LOC: LAB 09:41
PROVIDERS: PCP Internal Medicine; Referring Provider Internal Medicine Endocrinology, Diabetes & Metabolism; Visit Provider Internal Medicine Endocrinology, Diabetes & Metabolism
DX: M81.0 Age-related osteoporosis without current pathological fracture (principal); E03.9 Hypothyroidism, unspecified; E55.9 Vitamin D deficiency, unspecified
CPT/HCPCS: 36415; 80053; 82306; 84443

== ENCOUNTER 2025-05-21 10:06 | Outpatient (CLI) | payer MEDICARE, SELFPAY ==
[2025-05-21 10:31] VITALS: BP 132/76; PULSE 74; RESP 16; TEMP 35.9; O2SAT 98; BMI 33.5
[2025-05-21] MEDS: 0.9% NaCl Peripheral Flush Adult IV (10:45)
[2025-05-21 11:19] VITALS: BP 105/62; PULSE 96; RESP 16; TEMP 35.7
== END 2025-05-21 23:59 | disposition home or self-care (01) ==
LOC: MEDOUTP 10:06
PROVIDERS: PCP Internal Medicine; Referring Provider Internal Medicine Endocrinology, Diabetes & Metabolism; Visit Provider Internal Medicine Endocrinology, Diabetes & Metabolism
DX: M81.0 Age-related osteoporosis without current pathological fracture (principal)
CPT/HCPCS: 96365; A4216; J3489

== ENCOUNTER 2025-06-30 11:26 | Emergency (ER) | payer MEDICARE, SELFPAY ==
[2025-06-30 11:26] VITALS: BP 151/75; PULSE 72; RESP 16; TEMP 36.8; O2SAT 97; BMI 35.2
--- NOTE | 2025-06-30 11:36 | EKG12_ITS ---
Test Reason : CHEST PAIN Blood Pressure : */* mmHG Vent. Rate : 69 BPM Atrial Rate : 69 BPM P-R Int : 166 ms QRS Dur : 62 ms QT Int : 364 ms P-R-T Axes : 47 4 7 degrees QTcB Int : 390 ms Normal sinus rhythm Normal ECG Confirmed by ROSA ISELA OVERTON, LIZETH ([id number]), online editor JESSICA MCRAE ([id number]) on 07/01/2025 1:33:31 PM Referred By: Steven Mahoney Confirmed By: LIZETH NATARAJAN MD
--- NOTE | 2025-06-30 11:43 | EDS_ITS ---
HPI History of Present Illness Chief Complaint: Chest Pain Informant: patient Onset/Context/Timing Onset: Today and Yesterday Activity at onset: gradual Timing: Continuous Quality: Positive for Aching Location: Left Chest Current Severity: Mild Maximum Severity: Mild Worsened By: Nothing Relieved By: Nothing Associated Symptoms: Positive for Nausea; Negative for Vomiting, Diaphoresis, Dyspnea, Cough, Fever, Lightheadedness, Acid Reflux or Palpitations Narrative Narrative: 75-year-old female history of IN 20 years ago no stents. Known coronary disease. She is on aspirin but no other blood thinners. States she had nonexertional at rest chest discomfort started yesterday can encourage her left shoulder. States she has had this before with indigestion or issues with her pancreas. She denies vomiting or diarrhea. She denies abdominal pain. She has had no recent exertional chest pain or exertional dyspnea. Prior Similar Symptoms: Yes Recent Illness/Hospitalization: No CVD Risk Factors: Positive for Hypertension PE Risk Factors: Positive for Prior DVT or PE; Negative for Recent Travel/Surgery, Recent Immobilization, Cancer or OCP + Smoking + >/=35 TAD Risk Factors: Negative for Marfan's Syndrome [facility] Medical History Osteoporosis Pelvic fracture Wears glasses Post-menopausal Thyroid disease Arthritis High cholesterol DVT (deep venous thrombosis) Migraine headache History of ulceration History of IBS Gastric reflux Non-smoker Shortness of breath on exertion Leg cramps History of edema History of echocardiogram History of stress test Hypertension Cardiology follow-up encounter History of irregular heartbeat History of heart attack Cellulitis of left thigh Nonobstructive atherosclerosis of coronary artery Hyperglobulinemia Vitamin D deficiency Hypothyroidism (acquired) Osteopenia determined by x-ray Deep vein thrombophlebitis of right leg (08/01/15) Essential (primary) hypertension Dyspareunia Abnormality of left breast on screening mammogram Hypothyroid Old myocardial infarction Hyperlipidemia GERD (gastroesophageal reflux disease) Home Medications ?Medication ?Instructions ?Recorded ?Last Taken ?Type folic acid 1 mg tablet 2 mg PO DAILY@0800 SUPPLEMEN T 04/26/16 08/26/17 History multivitamin 1 ea PO DAILY SUPPLEMENT 02/25/22 History aspirin 81 mg tablet,delayed 81 mg PO DAILY 04/26/20 0 02/25/22 History release (Adult Aspirin Regimen) levothyroxine 125 mcg tablet 62.5 mcg PO DAILY 0 Unknown History metaxalone 800 mg tablet 800 mg PO PRN PRN Pain #30 t abs 07/25/22 Unknown Rx sulfamethoxazole 800 1 tab PO BID PRN as needed # 30 tabs 11/12/23 Unknown Rx mg-trimethoprim 160 mg tablet (Bactrim DS) ondansetron 4 mg disintegrating 4 mg PO Q8H PRN nausea and 02/28/24 Unknown Rx tablet vomiting #120 tabs tuhdvw-dolovxxv-ledlfnh 1 cap PO QAC 07/27/24 Unknow n History 40,000-126,000-168,000 unit capsule, delay rel (Zenpep) amlodipine 5 mg tablet 5 mg PO QHS BP #90 tabs 02/02 Unknown Rx metoprolol succinate 25 mg 25 mg PO QDAY #90 tabs 02/02 Unknown Rx tablet,extended release 24 hr hyoscyamine sulfate 0.125 mg tablet 0.125 mg PO Q8H [place] N dyspepsia #90 01/26/25 Unknown Rx tabs pantoprazole 40 mg tablet,delayed 40 mg PO DAILY #90 t abs 01/26/25 Unknown Rx release nystatin 100,000 unit/gram topical 1 applic topical QD AY #30 grams 04/12/25 Unknown Rx powder zoledronic acid 5 mg/100 mL in 1 ea .Route ONCE #100 m L 04/27/25 Unknown Rx mannitol 5 %-water intravenous piggybck Allergy/AdvReac Type Severity Reaction Status Date / Time Penicillins Allergy Severe Swelling Verified 05/21/25 10:24 Iodinated Contrast Media Allergy Hives Verified 05/21/25 10:24 NSAIDS (Non-Steroidal Allergy Other Verified 05/21/25 10:24 Anti-Inflamma Zlivzdd-SIR-DiX Reductase AdvReac Severe Other Verified 05/21/25 10:24 Inhibitor diphenhydramine (From AdvReac Intermediate ANXIOUS Verified 05/21/25 10:24 Benadryl) doxycycline AdvReac abdominal Verified 05/21/25 10:24 spasms Environmental Allergies: AdvReac Rash Verified 05/21/25 10:24 Uncoded ezetimibe (From Zetia) AdvReac nausea/vomi Verified 05/21/25 10:24 ting/diarrh ea hydrocodone bitartrate (From AdvReac Nausea/Vom/ Verified 05/21/25 10:24 Vicodin) Diarrhea oxybutynin chloride (From AdvReac nausea/vomi Verified 05/21/25 10:24 Ditropan) ting/diarrh ea pravastatin sodium (From AdvReac Pain in Verified 05/21/25 10:24 Pravachol) joints rofecoxib (From Vioxx) AdvReac not to Verified 05/21/25 10:24 take d/t IN' simvastatin (From Zocor) AdvReac nausea/vomi Verified 05/21/25 10:24 ting/diarrh ea Family History Mother Diabetes Surgical History History of cardiac catheterization History of carpal tunnel surgery of right wrist Hx of tonsillectomy Hx of tubal ligation History of left heart catheterization (09/2012) H/O: hysterectomy H/O bladder repair surgery Hx of knee surgery Social History household members: spouse housing: house current occupational status: retired Smoking Status: Never smoker alcohol intake: never substance use type: does not use caffeine: Yes what type of physical activity do you participate in: walking seatbelt use: always do you feel safe at home: Yes additional social history: Leif- Retired Patient is retired ROS ROS ED ROS Narrative Atypical chest pain. No exertional dyspnea. No exertional chest pain. No vomiting diarrhea nor fever. No melena. Constitutional Constitutional ED: Denies chills or fever(s) Eyes Eyes: Reports none ENT ENT ED: Denies ear pain Cardiovascular Cardiovascular: Reports as per HPI and chest pain; Denies palpitations or racing heartbeat Respiratory/Chest Respiratory/Chest: Denies cough, dyspnea or dyspnea on exertion Gastrointestinal Gastrointestinal: Denies abdominal pain Genitourinary Genitourinary ED: Denies dysuria or hematuria Musculoskeletal Musculoskeletal: Denies arthralgias or back pain Integumentary Denies abscess Neurologic Neurologic: Denies headache(s) Psychiatric Psychiatric: Denies anxiety Endocrine Endocrinology: Denies cold intolerance Hematologic/Lymphatic Hematologic/Lymphatic: Denies easy bleeding, easy bruising or lymphadenopathy Allergic/Immunologic Allergic/Immunologic ED: Denies mouth swelling, tongue swelling or urticaria EXAM Physical Exam Narrative Exam Narrative: Well-appearing 75-year-old female. Sitting upright in bed. Vital signs stable afebrile. Pulse ox 97% on room air no signs hypoxia. H EENT exam pupils are round and reactive to light. Extraocular motions are intact. No distress. at bedside. H EENT exam pupils round reactive light. Mytrex membranes. Neck nontender no JVD. Back nontender. Lungs clear to auscultation bilateral. Heart regular rhythm rate about 70 no murmur. Chest wall and ribs nontender. Abdomen soft nontender. Moving all 4 extremities. 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 Equal symmetrical radial pulses. Dorsi plantarflexion intact. Calves nontender no edema no cords. Neurologically she is awake and alert. Answering questions and following commands. Const Vital Signs: 06/30/25 11:26 06/30/25 11:58 06/30/25 12:26 Temperature 98.2 F Temperature Source Oral Pulse Rate 72 64 Respiratory Rate 16 Blood Pressure 151/75 H 120/67 Blood Pressure Mean 100 84 Pulse Ox 97 Oxygen Delivery Method Room Air Room Air 06/30/25 13:00 06/30/25 14:00 Temperature Temperature Source Pulse Rate 67 62 Respiratory Rate Blood Pressure 124/54 H 113/70 Blood Pressure Mean 77 84 Pulse Ox Oxygen Delivery Method Positive well nourished and well developed; Negative for cachectic, contractures or unkempt General Appearance ED: well developed and NAD; Negative for unkempt, cachectic, contractures or pallor Nutritional Appearance: Negative for cachectic HEENT Reports moist mucous membranes normocephalic and atraumatic Eyes PERRL and EOMs intact bilaterally Neck no lymphadenopathy, supple and no JVD Chest Wall inspection of chest normal and palpation of chest normal Resp normal respiratory effort and clear to auscultation bilaterally Effort and Inspection: Negative for respiratory distress Auscultation: Negative for rales, rhonchi, wheezes or diminished lung sounds Cardio regular rate, regular rhythm, S1 normal heart sound, S2 normal heart sound and no murmurs Peripheral Pulses: pulses 2+ throughout GI normal to inspection, nondistended, normoactive bowel sounds, soft to palpation, non-tender, non-distended and no masses Back/Spine no CVA tenderness and no thoracic nor lumbar tenderness Extremity normal to inspection General Extremety ED: Negative for edema, pulses abnormal or tenderness General Extremity: Negative for edema or pulses abnormal Neuro oriented x3 and CN's II-XII intact bilaterally Sensorium / Orientation: awake, alert, oriented to person, oriented to place and oriented to time; Negative for confused, lethargic or stuporous Motor Exam: strength 5/5 throughout Psych mental status grossly normal Appearance: Negative for unkempt Mood & Affect: Negative for depressed, anxious or tearful Skin no rashes or lesions noted and no wounds General Skin Exam: Negative for jaundice or pallor Rashes: No rashes noted Trauma: Negative for abrasion, laceration or puncture Heart Score History: Slightly/Non-Suspicious ECG: Normal Age: >/= 65 years Risk Factors: >/= 3 Risk Factors or History of CAD Troponin: </= Normal Limit Score: 4 MDM MDM MDM Narrative Medical decision making narrative: Symptoms that you feel are atypical nonreproducible chest pain. History of prior IN and CAD no stents. On aspirin no other thinners. Prior DVT postop. There had a PE. Clinically this does not sound like a PE is not pleuritic she is not short of breath. She will undergo cardiac workup. Repeat exam patient is doing well at 2:09 PM. Went over all of her test results chest x-ray and EKG. She is comfortable being discharged home. Chest pain uncertain etiology. Follow-up with her primary care provider or return if she is feeling worse. My clinical suspicion of this being cardiac is low. History & Record Review Discussion w/independent historian: Patient Additional record(s) reviewed:: Prior inpatient record, Prior outpatient record, Prior ED visit and Prior labs Lab Data Attestation: I reviewed the patient's lab results. Lab results narrative: CBC unremarkable. White count of 5. H&H 14 and 42. Platelets 253. Chemistries show sodium 138. Gap 11. BUN and creatinine are normal at 18 and 0.7. Glucose 114. Lipase normal at 38. Initial troponin 7. 2-hour troponin 7. Labs: Laboratory Results - last 24 hr 06/30/25 06/30/25 11:41 13:36 WBC 5.4 RBC 4.77 Hgb 14.4 Hct 42.2 MCV 88.5 MCH 30.2 MCHC 34.1 RDW Std Deviation 41.8 RDW Coeff of Kael 12.9 Plt Count 253 MPV 9.0 Immature Gran % (Auto) 0.400 Neut % (Auto) 54.1 Lymph % (Auto) 31.5 [place] % (Auto) 10.7 H Eos % (Auto) 2.6 Baso % (Auto) 0.7 Absolute Neuts (auto) 2.9 Absolute Lymphs (auto) 1.71 Nucleated RBC % 0 Sodium 138 Potassium 4.4 Chloride 102 Carbon Dioxide 25.0 Anion Gap 11 BUN 18 Creatinine 0.73 Estim Creat Clear Calc 64.74 Est GFR (MDRD) Non-Af 85 BUN/Creatinine Ratio 24.3 H Glucose 114 H Calcium 9.8 Troponin T High Sens 7 Troponin T Hi Sens 2 Hr 7 Lipase 38 Radiography Chest X-Ray - ED: 2 View, Read by ED Physician, Normal, Heart, Mediastinum, Bony Structures, No Acute Disease and Chronic Changes Diagnostic Testing: Clinical Impression(s) from Imaging Studies Chest X-Ray 06/30/25 11:50 IMPRESSION: No Acute Findings. Reading Location: [facility] Chest x-ray, portable, single view, interpreted by myself shows normal cardiac silhouette. Normal aortic knob and mediastinum. Chronic changes. No acute process. No effusion. No infiltrate. Rhythm Strip Rhythm Strip: Sinus Rhythm Rate: 69 Ectopy: None EKG Initial EKG: Attestation: I personally reviewed and interpreted this EKG as follows: Interpretation: Sinus Rhythm and No Acute Injury Pattern Comments: Normal sinus rhythm rate of 69. No acute signs of IN or ischemia. Discharge Plan Triage Chief Complaint: Chest Pain ED Provider: Steven Mahoney Dx/Rx/DC Orders Clinical Impression: Chest pain, History of IN (myocardial infarction), History of CAD (coronary artery disease) Instructions: ED Chest Pain, Uncertain Cause Prescriptions: No Action aspirin [Adult Aspirin Regimen] 81 mg tablet,delayed release (DR/EC) 81 mg PO DAILY levothyroxine 125 mcg tablet 62.5 mcg PO DAILY metaxalone 800 mg tablet 800 mg PO PRN PRN (Reason: Pain) Qty: 30 0RF Zenpep 40,000-126,000- 168,000 unit capsule,delayed release(DR/EC) 1 cap PO QAC Rx Instructions: administer 2-3 with meals and 1-2 with snacks. Maximum 10 a day. zoledronic mphh-frxsugds-pftrk 5 mg/100 mL piggyback 1 ea .Route ONCE Qty: 100 0RF Rx Instructions: infuse over 20 minutes hyoscyamine sulfate 0.125 mg tablet 0.125 mg PO Q8H PRN (Reason: dyspepsia) Qty: 90 0RF pantoprazole 40 mg tablet,delayed release (DR/EC) 40 mg PO DAILY Qty: 90 9RF nystatin 100,000 unit/gram powder 1 applic topical QDAY Qty: 30 0RF multivitamin 1 EACH tablet 1 ea PO DAILY folic acid 1 MG tablet 2 mg PO DAILY@0800 sulfamethoxazole-trimethoprim [Bactrim DS] 800-160 mg tablet 1 tab PO BID PRN (Reason: as needed) Qty: 30 1RF Patient Comments: BLADDER INFECTIONS-KEEPS ON HAND ondansetron 4 mg tablet,disintegrating 4 mg PO Q8H PRN (Reason: nausea and vomiting) Qty: 120 1RF amlodipine 5 mg tablet 5 mg PO QHS Qty: 90 3RF metoprolol succinate 25 mg tablet extended release 24 hr 25 mg PO QDAY Qty: 90 3RF Primary Care Provider: Joi Gonzalez Referrals: Joi Gonzalez MD [Primary Care Provider] - 3-5 Days Activity Restrictions/Additional Instructions: Your tests, EKG and chest x-ray all look good. Follow-up with your doctor. Print Language: Ukrainian Disposition Disposition: Home, Self Care
[2025-06-30 11:49] LABS: Hematocrit 42.2 % (37-47); Hemoglobin 14.4 g/dL (12.0-15.0); Immature Granulocytes Count 0.020 X10^3/uL (0.0-0.0); Mean Corp Hgb Conc 34.1 g/dL (32-36); Mean Corpuscular Volume 88.5 fL (81-99); Mean Platelet Vol. 9.0 fl (6.2-12.0); NRBC Flagged by Analyzer 0 % (0-5); Platelet Count 253 K/mm3 (150-450); RBC Distribution Width CV 12.9 % (11.6-14.6); RBC Distribution Width SD 41.8 fl (35.1-43.9); Red Blood Count 4.77 M/mm3 (4.2-5.4); White Blood Count 5.4 K/mm3 (4.4-11.0)
--- NOTE | 2025-06-30 11:50 | RAD_ITS ---
PROCEDURE: CHEST 1 VIEW (PORTABLE) 06/30/2025 REASON FOR EXAM: CHEST PAIN TECHNIQUE: Frontal view of the chest. COMPARISON: Prior study dated January 02, 2025. FINDINGS: Hardware: EKG electrodes are seen. Heart: Borderline cardiomegaly. Lungs: The lungs are clear. Prominence of the central pulmonary arteries suggestive of possible pulmonary hypertension. Bones: Degenerative changes are identified within the thoracic spine. Other: RAD/Chest 1 View (Portable) IMPRESSION: No Acute Findings. Reading Location: [id number]
[2025-06-30 12:23] LABS: Anion Gap 11 (5-15); BUN 18 mg/dL (4-19); BUN/Creat Ratio 24.3 RATIO (10-20); Calcium,Total 9.8 mg/dL (7.6-11.0); Carbon Dioxide 25.0 mmol/L (21.0-32.0); Chloride 102 mmol/L (98-108); Estimated Creatinine Clearance 64.74 ml/min (50-250); Glucose 114 mg/dL (70-99); Lipase 38 U/L (13-75); Potassium 4.4 mmol/L (3.3-5.1); Troponin T High Sensitivity 7 ng/L (<=14)
[2025-06-30 12:26] VITALS: BP 120/67; PULSE 64
[2025-06-30 13:00] VITALS: BP 124/54; PULSE 67
[2025-06-30 14:00] VITALS: BP 113/70; PULSE 62
[2025-06-30 14:06] LABS: Troponin T High Sens 2 HR 7 ng/L (<=14)
[2025-06-30 14:17] VITALS: BP 113/70; PULSE 66; RESP 14; TEMP 36.3; O2SAT 98
== END 2025-06-30 14:18 | disposition home or self-care (01) ==
PROVIDERS: Emergency Provider Emergency Medicine; PCP Internal Medicine; Referring Provider Emergency Medicine; Visit Provider Emergency Medicine
DX: R07.9 Chest pain, unspecified (principal); R11.0 Nausea; E78.00 Pure hypercholesterolemia, unspecified; I10 Essential (primary) hypertension; I25.10 Atherosclerotic heart disease of native coronary artery without angina pectoris; E03.9 Hypothyroidism, unspecified; I25.2 Old myocardial infarction; Z79.82 Long term (current) use of aspirin; Z79.890 Hormone replacement therapy; Z79.899 Other long term (current) drug therapy; Z86.718 Personal history of other venous thrombosis and embolism
CPT/HCPCS: 71045; 80048; 83690; 84484; 85025; 93005; 99284; A4216

== ENCOUNTER → 2025-09-07 | Outpatient (CLI) | payer MEDICARE, SELFPAY ==
--- NOTE | 2025-09-07 08:10 | CT_ITS ---
PROCEDURE: CT ABD/PELVIS W/WO CONTRAST 09/07/2025 REASON FOR EXAM: PANCREATIC PROTOCOL Pancreatic lesion. TECHNIQUE: Procedure Code: [id number] Modality: CT Procedure: CT ABD/PELVIS W/WO CONTRAST Coronal and Sagittal reconstruction series were provided. CONTRAST: Isovue 370 VOLUME: 100 mL One or more dose reduction techniques were used (e.g., Automated exposure control, adjustment of the mA and/or kV according to patient size, use of iterative reconstruction technique. RADIATION DOSE SUMMARY: CTDlvol: 23 mGy DLP: 2131.78 mGycm COMPARISON: None FINDINGS: Lung bases: Lung bases are clear. Small to moderate-sized hiatal hernia. Coronary artery calcification. Liver: Diffuse fatty infiltration. 1 cm cyst in the dome of the right lobe of the liver posteriorly. Gallbladder: The gallbladder is contracted. Spleen: Normal size. Pancreas: Normal size without evidence of mass surrounding inflammation or ductal dilation. Adrenals: Unremarkable Kidneys: Focal cortical scar in the upper lateral aspect of the right kidney. Bilateral parapelvic cysts. Bladder: The bladder is almost empty. Reproductive Organs: Prior hysterectomy. Adnexal regions are unremarkable. Bowel: Colonic diverticulosis without diverticulitis. Appendix: The appendix is not identified. There is no inflammatory process identified in the right lower quadrant to suggest appendicitis. Lymph nodes: Unremarkable. Vasculature: Mild diffuse atherosclerotic calcifications are noted. Peritoneum / Retroperitoneum: Unremarkable Bones: Degenerative changes of the spine. CT/CT Abd/Pelvis W/WO Contrast IMPRESSION: Fatty infiltration of the liver. 1 cm cyst in the dome of the right lobe of the liver posteriorly. Small to moderate-sized hiatal hernia. Reading Location: [id number]
== END | disposition home or self-care (01) ==
PROVIDERS: PCP Internal Medicine; Referring Provider Internal Medicine Gastroenterology; Visit Provider Internal Medicine Gastroenterology
DX: K86.9 Disease of pancreas, unspecified (principal)
CPT/HCPCS: 74178; Q9967

== ENCOUNTER → 2025-11-08 | Outpatient (CLI) | payer MEDICARE, SELFPAY | END | disposition home or self-care (01) | PROVIDERS: PCP Internal Medicine; Visit Provider Obstetrics & Gynecology | DX: R30.0 Dysuria (principal); R10.20 Pelvic and perineal pain unspecified side | CPT/HCPCS: 87077; 87086; 87088; 87186 ==